=== PATIENT | female | born 1960 | race Caucasian/White ===

== ENCOUNTER 2020-08-02 11:42 | Outpatient (REF) | payer OTHER, SELFPAY ==
[2020-08-02 13:53] LABS: Hematocrit 39.2 % (37-47); Hemoglobin 13.5 g/dl (12.0-16.0); Mean Corpuscular HGB Conc 34.4 g/dl (31.0-35.0); Mean Corpuscular Hemoglobin 35.3 pg (27.0-33.0); Mean Corpuscular Volume 102.6 fL (80-98); Mean Platelet Volume 11.3 fL (9.4-12.3); Platelet Count 297 X10*3/uL (160-400); Red Blood Count 3.82 X10*6/uL (4.20-5.50); Red Cell Distribution Width 12.4 % (11.0-16.0); White Blood Count 9.2 X10*3/uL (4.8-10.8)
[2020-08-02 14:18] LABS: Alanine Aminotransferase 16 U/L (0-31); Albumin Level 4.3 g/dL (3.5-5.0); Alkaline Phosphatase 96 U/L (39-117); Anion Gap 14 (12-20); Aspartate Amino Transferase 20 U/L (5-31); Bilirubin Direct 0.2 mg/dL (0.0-0.5); Bilirubin Total 0.6 mg/dL (0.0-1.0); Blood Urea Nitrogen 13 mg/dL (9-16); Calcium 8.6 mg/dL (8.4-10.2); Carbon Dioxide 31 mmol/L (22-29); Chloride 102 mmol/L (96-108); Cholesterol 202 mg/dL; Estimated Glomerular Filt Rate > 60; Glucose Fasting 102 mg/dL (60-99); HDL Cholesterol 79 mg/dL; LDL Cholesterol Calculated 103 mg/dl; Potassium 4.1 mmol/L (3.3-5.1); Sodium 143 mmol/L (135-145); Triglycerides 102 mg/dL
[2020-08-02 14:27] LABS: TSH reflex Free T4 0.53 uIU/mL (0.32-4.0)
== END 2020-08-02 11:43 | disposition home or self-care (01) ==
LOC: HO.WFDLDS 11:42
PROVIDERS: PCP Hospitalist; Visit Provider Hospitalist
DX: Z00.00 Encounter for general adult medical examination without abnormal findings (principal)
CPT/HCPCS: 36415; 80048; 80061; 80076; 84443; 85027

== ENCOUNTER 2020-12-01 12:06 | Outpatient (REF) | payer OTHER, SELFPAY ==
[2020-12-01 15:16] LABS: Vitamin B12 854 pg/mL (200-900)
== END 2020-12-01 12:07 | disposition home or self-care (01) ==
LOC: HO.WFDLDS 12:06
PROVIDERS: Visit Provider Internal Medicine
DX: G62.9 Polyneuropathy, unspecified (principal)
CPT/HCPCS: 36415; 82607; 82746

== ENCOUNTER 2021-04-18 08:33 | Outpatient (REF) | payer OTHER, SELFPAY ==
[2021-04-18 11:45] LABS: Hematocrit 36.5 % (37.0-47.0); Hemoglobin 13.1 g/dl (12.0-16.0); Mean Corpuscular HGB Conc 35.9 g/dl (31.0-35.0); Mean Corpuscular Hemoglobin 37.6 pg (27.0-33.0); Mean Corpuscular Volume 104.9 fL (80.0-98.0); Mean Platelet Volume 11.3 fL (9.4-12.3); Platelet Count 299 X10*3/uL (160-400); Red Blood Count 3.48 X10*6/uL (4.20-5.50); Red Cell Distribution Width 13.7 % (11.0-16.0); White Blood Count 8.4 X10*3/uL (4.8-10.8)
[2021-04-18 11:56] LABS: Alanine Aminotransferase 11 U/L (0-31); Albumin Level 3.7 g/dL (3.5-5.0); Alkaline Phosphatase 96 U/L (39-117); Anion Gap 18 (12-20); Aspartate Amino Transferase 40 U/L (5-31); Blood Urea Nitrogen 4 mg/dL (9-16); Calcium 8.2 mg/dL (8.4-10.2); Carbon Dioxide 35 mmol/L (22-29); Chloride 95 mmol/L (96-108); Cholesterol 172 mg/dL; Estimated Glomerular Filt Rate > 60; Glucose Fasting 110 mg/dL (60-99); HDL Cholesterol 78 mg/dL; LDL Cholesterol Calculated 75 mg/dl; Potassium 2.7 mmol/L (3.3-5.1); Sodium 145 mmol/L (135-145); Total Protein 6.7 g/dL (6.5-8.0); Triglycerides 97 mg/dL
[2021-04-18 12:18] LABS: TSH reflex Free T4 1.74 uIU/mL (0.32-4.0)
== END 2021-04-18 08:34 | disposition home or self-care (01) ==
LOC: HO.WFDLDS 08:33
PROVIDERS: Visit Provider Hospitalist
DX: Z00.01 Encounter for general adult medical examination with abnormal findings (principal)
CPT/HCPCS: 36415; 80048; 80053; 80061; 84443; 85027

== ENCOUNTER 2021-05-02 09:36 | Outpatient (REF) | payer OTHER, SELFPAY ==
[2021-05-02 12:37] LABS: Alanine Aminotransferase 14 U/L (0-31); Albumin Level 3.7 g/dL (3.5-5.0); Alkaline Phosphatase 105 U/L (39-117); Anion Gap 17 (12-20); Aspartate Amino Transferase 44 U/L (5-31); Bilirubin Total 1.3 mg/dL (0.0-1.0); Blood Urea Nitrogen 5 mg/dL (9-16); Calcium 8.6 mg/dL (8.4-10.2); Carbon Dioxide 35 mmol/L (22-29); Chloride 96 mmol/L (96-108); Estimated Glomerular Filt Rate > 60; Glucose Random 110 mg/dL (60-115); Sodium 145 mmol/L (135-145); Total Protein 6.8 g/dL (6.5-8.0)
== END 2021-05-02 09:37 | disposition home or self-care (01) ==
LOC: HO.WFDLDS 09:36
PROVIDERS: Visit Provider Hospitalist
DX: E87.6 Hypokalemia (principal); R17 Unspecified jaundice
CPT/HCPCS: 36415; 80053

== ENCOUNTER 2021-07-25 10:03 | Outpatient (REF) | payer OTHER, SELFPAY ==
[2021-07-25 11:53] LABS: Alanine Aminotransferase 34 U/L (0-31); Albumin Level 3.6 g/dL (3.5-5.0); Alkaline Phosphatase 108 U/L (39-117); Anion Gap 15 (12-20); Aspartate Amino Transferase 98 U/L (5-31); Bilirubin Total 1.8 mg/dL (0.0-1.0); Blood Urea Nitrogen 5 mg/dL (9-16); Calcium 8.6 mg/dL (8.4-10.2); Carbon Dioxide 37 mmol/L (22-29); Chloride 93 mmol/L (96-108); Estimated Glomerular Filt Rate > 60; Glucose Random 121 mg/dL (60-115); Potassium 3.5 mmol/L (3.3-5.1); Sodium 141 mmol/L (135-145); Total Protein 6.7 g/dL (6.5-8.0)
== END 2021-07-25 10:04 | disposition home or self-care (01) ==
LOC: HO.WFDLDS 10:03
PROVIDERS: Visit Provider Hospitalist
DX: E87.6 Hypokalemia (principal); R17 Unspecified jaundice; R82.90 Unspecified abnormal findings in urine
CPT/HCPCS: 36415; 80053; 87086; 87088; 87186

== ENCOUNTER 2021-11-10 08:33 | Outpatient (REF) | payer OTHER, SELFPAY | END 2021-11-10 08:34 | disposition home or self-care (01) | LOC: HO.HOSX 08:33 | PROVIDERS: Visit Provider Physician Assistant | DX: Z13.89 Encounter for screening for other disorder (principal) ==

== ENCOUNTER 2022-07-19 10:43 | Outpatient (REF) | payer OTHER, SELFPAY ==
[2022-07-19 14:25] LABS: Hematocrit 40.9 % (37.0-47.0); Hemoglobin 14.1 g/dl (12.0-16.0); Mean Corpuscular HGB Conc 34.5 g/dl (31.0-35.0); Mean Corpuscular Hemoglobin 33.9 pg (27.0-33.0); Mean Corpuscular Volume 98.3 fL (80.0-98.0); Mean Platelet Volume 11.7 fL (9.4-12.3); Platelet Count 213 X10*3/uL (160-400); Red Blood Count 4.16 X10*6/uL (4.20-5.50); Red Cell Distribution Width 13.1 % (11.0-16.0); White Blood Count 7.2 X10*3/uL (4.8-10.8)
[2022-07-19 16:20] LABS: Alanine Aminotransferase 11 U/L (0-31); Albumin Level 3.8 g/dL (3.5-5.0); Alkaline Phosphatase 107 U/L (39-117); Anion Gap 14 (12-20); Aspartate Amino Transferase 29 U/L (5-31); Bilirubin Total 1.2 mg/dL (0.0-1.0); Blood Urea Nitrogen 5 mg/dL (9-16); Calcium 9.1 mg/dL (8.4-10.2); Carbon Dioxide 31 mmol/L (22-29); Chloride 99 mmol/L (96-108); Cholesterol 164 mg/dL; Estimated Glomerular Filt Rate > 60; Glucose Fasting 130 mg/dL (60-99); HDL Cholesterol 80 mg/dL; LDL Cholesterol Calculated 64 mg/dl; Magnesium 0.7 mg/dL (1.6-2.6); Sodium 141 mmol/L (135-145); TSH reflex Free T4 0.57 uIU/mL (0.32-4.0); Total Protein 6.7 g/dL (6.5-8.0); Triglycerides 104 mg/dL
== END 2022-07-19 10:44 | disposition home or self-care (01) ==
LOC: HO.WFDLDS 10:43
PROVIDERS: Hospitalist; Visit Provider Nurse Practitioner Family
DX: E83.42 Hypomagnesemia (principal); D64.9 Anemia, unspecified; E87.6 Hypokalemia; I10 Essential (primary) hypertension
CPT/HCPCS: 36415; 80053; 80061; 82306; 83735; 84443; 85027

== ENCOUNTER 2022-08-23 10:16 | Outpatient (REF) | payer OTHER, SELFPAY | END 2022-08-23 10:17 | disposition home or self-care (01) | LOC: HO.WFDLDS 10:16 | PROVIDERS: Visit Provider Hospitalist | DX: Z13.89 Encounter for screening for other disorder (principal) ==

== ENCOUNTER 2022-10-11 11:09 | Outpatient (REF) | payer OTHER, SELFPAY ==
[2022-10-11 14:02] LABS: Hematocrit 33.2 % (37.0-47.0); Hemoglobin 11.7 g/dl (12.0-16.0); Mean Corpuscular HGB Conc 35.2 g/dl (31.0-35.0); Mean Corpuscular Hemoglobin 37.9 pg (27.0-33.0); Mean Corpuscular Volume 107.4 fL (80.0-98.0); Mean Platelet Volume 11.2 fL (9.4-12.3); Platelet Count 151 X10*3/uL (160-400); Red Blood Count 3.09 X10*6/uL (4.20-5.50); Red Cell Distribution Width 14.5 % (11.0-16.0); White Blood Count 6.9 X10*3/uL (4.8-10.8)
[2022-10-11 14:32] LABS: Anion Gap 18 (12-20); Blood Urea Nitrogen 7 mg/dL (9-16); Calcium 8.3 mg/dL (8.4-10.2); Carbon Dioxide 31 mmol/L (22-29); Chloride 97 mmol/L (96-108); Cholesterol 175 mg/dL; Estimated Glomerular Filt Rate > 60; Glucose Random 107 mg/dL (60-115); HDL Cholesterol 82 mg/dL; LDL Cholesterol Calculated 74 mg/dl; Magnesium < 0.6 mg/dL (1.6-2.6); Phosphorus 3.9 mg/dL (2.7-4.5); Potassium 3.4 mmol/L (3.3-5.1); Sodium 143 mmol/L (135-145); Triglycerides 97 mg/dL
[2022-10-11 14:57] LABS: Folate 2.6 ng/mL (> or = 4.0); TSH reflex Free T4 1.05 uIU/mL (0.32-4.0)
[2022-10-17 16:33] LABS: Vitamin D 25-OH, D2 14 ng/mL; Vitamin D 25-OH, D3 43 ng/mL; Vitamin D 25-OH, Total 57 ng/mL (30-100)
== END 2022-10-11 11:10 | disposition home or self-care (01) ==
LOC: HO.WFDLDS 11:09
PROVIDERS: Visit Provider Hospitalist
DX: Z00.00 Encounter for general adult medical examination without abnormal findings (principal); K21.9 Gastro-esophageal reflux disease without esophagitis; F10.20 Alcohol dependence, uncomplicated; E55.9 Vitamin D deficiency, unspecified
CPT/HCPCS: 36415; 80048; 80061; 82306; 82746; 83735; 84100; 84443; 85027

== ENCOUNTER 2023-03-08 13:13 | Outpatient (AMB) | payer OTHER, SELFPAY ==
[2023-03-08 13:17] VITALS: BP 96/66; PULSE 116; RESP 12; O2SAT 97; BMI 16.1
--- NOTE | 2023-03-08 13:17 | MHC.PC.OV ---
Vital Signs 03/08/23 13:17 Height 5 ft 2 in Weight 88 lb 4 oz BMI 16.1 BP 96/66 Blood Pressure Location Rt brachial Position Sitting Respiration 12 Pulse 116 H Pulse Source Pulse Oximeter Pulse Oximetry (%) 97 Oxygen Delivery Method Room Air Intake Visit Reasons: Transfer of care from [facility] Intake Note: Patient would like a refill on her loratadine. Patient is also wondering if she should or should not be taking the potassium. 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 Accompanied by: Boyfriend Allergies Sulfa (Sulfonamide Antibiotics) Allergy (Intermediate, Verified 03/08/23 13:47) Redness of Skin rash Medication List - Last Reconciled 03/08/23 by BAL Walton albuterol sulfate 90 mcg/actuation (Ventolin HFA) 2 puffs PO QID cholecalciferol (vitamin D3) 50 mcg PO DAILY diclofenac sodium 1% (Voltaren Arthritis Pain) 2 grams topical QID duloxetine 20 mg PO BID folic acid 0.4 mg PO DAILY 30 days loratadine (Allergy Relief (loratadine)) 10 mg PO DAILY magnesium oxide 500 mg PO BID omeprazole 20 mg PO DAILY potassium chloride ER (Klor-Con) 10 mEq PO DAILY 30 days umeclidinium-vilanterol 62.5-25 mcg/actuation (Anoro Ellipta) 1 inh inhalation DAILY valsartan 40 mg PO BID 3 months Tobacco use date assessed: 08/23/22 Dental Screening Dental Screen Date: 03/08/23 Did you have a dental visit in the last 12 months?: No Did you have a dental problem in the last 6 months where you did not have access to dental care?: No Was dental information given to patient?: Patient has dentist HPI HPI Comments History of Present Illness Details 63-year-old female presents today to for a transfer of care from [facility]. Past medical history significant for hypertension, peripheral neuropathy, alcohol dependence, hypo magnesium hypokalemia, asthma, COPD, GERD. Patient reports she currently drinks 3 nips of vodka daily and currently smokes 5 cigarettes per day. Patient denies following with labor and delivery nurse for history of COPD and asthma. Patient does report that she suffered a left hip fracture in December and she was admitted to [facility]. Patient advised to follow up in 2 weeks for hospital discharge follow-up. [facility] Medical History (Updated 03/08/23 @ 14:01 by BAL Walton) Right arm fracture Peripheral neuropathy Multiple nodules of lung Weakness of left side of body Chronic back pain Arthritis COPD (chronic obstructive pulmonary disease) Depression Anxiety Surgical History Previous back surgery H/O: hysterectomy Family History (Updated 03/08/23 @ 13:44 by BAL Walton) Mother No problems noted. Father Lung cancer Social History (Updated 03/08/23 @ 13:45 by BAL Walton) Housing: Other (trailer) Alcohol intake: current Alcohol intake frequency: 3 or more drinks per day Alcohol type: hard liquor Patient Tobacco Use Status: Current everyday Tobacco user Tobacco use type: Cigarette Cigarettes Per Day: 5 Years Smoked: 40 e-Cigarette/Vaping Use: Never Used service: No Current occupational status: unemployed Cognitive needs: No Hearing needs: No Vision needs: No Questionnaire Thrive Questionnaire Date Thrive assessed: 05/24/22 Review of Systems Const Denies chills, Denies fatigue, Denies fever(s) and Denies poor appetite Eyes Denies no additional complaints ENT Reports Normal hearing present Card Denies chest pain, Denies syncope, Denies rapid heart rate and Denies dyspnea Resp Denies cough and Denies dyspnea GI Denies change in stool character, Denies constipation, Denies diarrhea, Denies nausea and Denies vomiting Denies urinary frequency, Denies dysuria and Denies urinary urgency Neuro Reports Normal hearing present, Denies confusion and Denies syncope Psych Denies confusion Endo Denies fatigue Physical exam (Primary Care) Vital Signs: Last Vital Signs Pulse 116 H 03/08/23 13:17 Resp 12 03/08/23 13:17 BP 96/66 03/08/23 13:17 Pulse Ox 97 03/08/23 13:17 Oxygen Delivery Method Room Air 03/08/23 13:17 BMI result Body Mass Index 16.1 Tobacco/Smoking Status: Tobacco use Status Tobacco use date assessed 08/23/22 03/08/23 13:32 Patient Tobacco Use Status Current everyday Tobacco 03/08/23 13:45 Tobacco use type Cigarette 03/08/23 13:45 e-Cigarette/Vaping Use Never Used 03/08/23 13:45 Thrive Assessment: Date of Thrive Assessment Date Thrive assessed 05/24/22 03/08/23 13:32 Const General: No confusion Orientation/consciousness: No confusion HENMT Head: Yes normocephalic and Yes atraumatic Eyes Conjunctivae: conjunctivae normal Chest Chest palpation & inspection: normal inspection of the chest Resp Effort & Inspection: normal respiratory effort Auscultation: clear to auscultation bilaterally, no crackles, no rhonchi and no wheezes Cardio Rate: regular rate Rhythm: regular rhythm Heart sounds: S1 normal heart sound present and S2 normal heart sound present GI Inspection: Yes normal to inspection Neuro General: No confusion Cranial nerves: Yes Normal hearing present Extrem General: No edema Assessment and Plan Assessment & Plan (1) Hypomagnesemia: Code(s): E83.42 - Hypomagnesemia Plan: Magnesium level ordered. Continue on magnesium supplements. (2) Hypokalemia: Code(s): E87.6 - Hypokalemia Plan: Potassium level ordered. (3) Hypertension, essential: Code(s): I10 - Essential (primary) hypertension Plan: Continue on valsartan 40 mg twice a day (4) COPD (chronic obstructive pulmonary disease): Code(s): J44.9 - Chronic obstructive pulmonary disease, unspecified Plan: Continue on Anoro Ellipta and albuterol as needed. Plan Follow up in 2 weeks for hospital discharge follow-up/ Orders: Orders Complete Blood Count Auto Diff Today Z13.0 - Encounter for screening for diseases of the blood and blood-forming organs and certain disorders involving the immune mechanism Magnesium Today E83.42 - Hypomagnesemia TSH reflex Free T4 Today Z13.29 - Encounter for screening for other suspected endocrine disorder Comprehensive [place]. Panel Fast Today E83.42 - Hypomagnesemia Lipid Panel Today Z13.220 - Encounter for screening for lipoid disorders Vitamin D 25-OH Total Today Z13.21 - Encounter for screening for nutritional disorder Coding Level of Care Code Est Pt Level 4 (96932) Diagnoses Hypomagnesemia E83.42 Hypokalemia E87.6 Hypertension, essential I10 COPD (chronic obstructive pulmonary disease) J44.9
== END 2023-03-08 13:55 | disposition home or self-care (01) ==
PROVIDERS: PCP Hospitalist; Visit Provider Nurse Practitioner Family
DX: E83.42 Hypomagnesemia (principal); E87.6 Hypokalemia; I10 Essential (primary) hypertension; J44.9 Chronic obstructive pulmonary disease, unspecified
CPT/HCPCS: 99214

== ENCOUNTER 2023-03-27 11:58 | Outpatient (REF) | payer OTHER, SELFPAY | END 2023-03-27 11:59 | disposition home or self-care (01) | LOC: HO.WFDLDS 11:58 | PROVIDERS: Visit Provider Nurse Practitioner Family | DX: Z13.0 Encounter for screening for diseases of the blood and blood-forming organs and certain disorders involving the immune mechanism (principal); Z13.29 Encounter for screening for other suspected endocrine disorder; Z13.220 Encounter for screening for lipoid disorders; Z13.21 Encounter for screening for nutritional disorder; E83.42 Hypomagnesemia | CPT/HCPCS: 36415; 80053; 80061; 82306; 83735; 84443; 85025 ==

== ENCOUNTER 2023-03-30 09:59 | Outpatient (AMB) | payer OTHER, SELFPAY ==
--- NOTE | 2023-03-30 10:02 | MHC.PC.OV ---
Vital Signs 03/30/23 10:04 Height 5 ft 2 in Weight 88 lb 6.486 oz BMI 16.2 BP 100/68 Blood Pressure Location Rt brachial Position Sitting Intake Visit Reasons: HDF from [facility] Intake Note: Patient is here to follow up on Chronic GERD, COPD, Asthma, Arthritis. 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: Present Accompanied by: Spouse Allergies Sulfa (Sulfonamide Antibiotics) Allergy (Intermediate, Verified 03/30/23 10:04) Redness of Skin rash Tobacco use date assessed: 03/30/23 Dental Screening Dental Screen Date: 03/30/23 Did you have a dental visit in the last 12 months?: No Did you have a dental problem in the last 6 months where you did not have access to dental care?: No Was dental information given to patient?: No HPI HPI Comments History of Present Illness Details 63-year-old female past medical history significant for hypertension, alcohol dependence, smoker, anxiety, depression, hypo magnesium, anemia, GERD. Patient presents today for hospital discharge follow-up from [facility] in January status post fall for which patient suffered a left hip intro trochantericfracture, status post left hip repair. Patient was found to have Hypomagnesium likely related to GI losses patient was advised to continue p.o. magnesium as well as found to be anemia with hemoglobin in the sevens patient refused blood transfusion during admission recommended repeat CBC in 1 week. Patient was advised to follow-up with [facility] ortho 04/10 Repeat labs were completed on 03/27 23 H&H 13.5/38.5, sodium slightly low at 134, BUN and creatinine within normal limits. Magnesium remains critical at 0.9. Patient was called and notified to seek emergency medical attention for IV replacement at that time. To the emergency room for critical magnesium as she did not have a ride. Patient also states that she was only taking her magnesium supplement once daily she was not aware she was supposed to be on a twice a day. Patient states started taking her magnesium supplements twice a day 3 days ago. Patient advised to get repeat lab work completed to follow-up on this. Patient reports ongoing chronic diarrhea x3 years denies any abdominal pain or cramping denies any blood in stool. Patient reports occasionally nausea denies vomiting. Previous history of alcohol so abuse patient reports has not consumed alcohol x1 month. Patient strongly advised to continue to refrain from alcohol consumption. [facility] Medical History (Updated 03/08/23 @ 14:01 by BAL Walton) Right arm fracture Peripheral neuropathy Multiple nodules of lung Weakness of left side of body Chronic back pain Arthritis COPD (chronic obstructive pulmonary disease) Depression Anxiety Surgical History (Updated 03/30/23 @ 10:13 by SANDOVAL Fish) History of hip surgery Previous back surgery H/O: hysterectomy Family History (Updated 03/30/23 @ 10:03 by SANDOVAL Fish) Mother No problems noted. Father Lung cancer Social History Housing: Other (trailer) Alcohol intake: current Alcohol intake frequency: 3 or more drinks per day Alcohol type: hard liquor Patient Tobacco Use Status: Current everyday Tobacco user Tobacco use type: Cigarette Cigarettes Per Day: 5 Years Smoked: 40 e-Cigarette/Vaping Use: Never Used Second Hand Smoke Exposure: Yes service: No Current occupational status: unemployed Cognitive needs: Yes (walker, wheelchair) Hearing needs: No Vision needs: Yes (glasses) Questionnaire Thrive Questionnaire Date Thrive assessed: 03/30/23 I am a: Patient What is your living situation today?: I have a steady place to live Within the past 12 months, did the food you bought not last and you didn't have the money to get more?: Never true Within the past 12 months, did you worry whether your food would run out before you got money to buy more?: Never true Do you have trouble paying for medicines?: No Do you have trouble getting transportation to medical appointments?: No Do you have trouble paying your heating and electricity bill?: No Do you have trouble taking care of your child, family member or friend?: No Do you have trouble with day-to-day activities such as bathing, preparing meals, shopping, managing finances, etc.?: No Are you currently unemployed and looking for a job?: No Are you interested in more education?: No Currently or been in a relationship where the following occur: no concerns reported TAWNYA-7 AMB Questionnaire TAWNYA-7 Date TAWNYA - 7 assessed: 10/11/22 Source: Developed by Drs. Riley Banuelos, Cleemntine Leblanc, Jose J Benítez and colleagues, with an educational xiang from [employer]. Review of Systems Const Denies chills, Denies fatigue, Denies fever(s) and Denies poor appetite Eyes Denies no additional complaints ENT Reports Normal hearing present Card Denies chest pain, Denies syncope, Denies rapid heart rate and Denies dyspnea Resp Denies cough and Denies dyspnea GI Denies change in stool character, Denies constipation, Denies diarrhea, Denies nausea and Denies vomiting Denies urinary frequency, Denies dysuria and Denies urinary urgency Neuro Reports Normal hearing present, Denies confusion and Denies syncope Psych Denies confusion Endo Denies fatigue Physical exam (Primary Care) Vital Signs: Last Vital Signs BP 100/68 03/30/23 10:04 BMI result Body Mass Index 16.2 Tobacco/Smoking Status: Tobacco use Status Tobacco use date assessed 03/30/23 03/30/23 10:14 Patient Tobacco Use Status Current everyday Tobacco 03/30/23 10:14 Tobacco use type Cigarette 03/30/23 10:14 e-Cigarette/Vaping Use Never Used 03/30/23 10:14 Thrive Assessment: Date of Thrive Assessment Date Thrive assessed 03/30/23 03/30/23 10:14 Currently or been in a relationship where the following occur: no concerns reported Const General: No confusion Orientation/consciousness: No confusion HENTX Head: Yes normocephalic and Yes atraumatic Eyes Conjunctivae: conjunctivae normal Chest Chest palpation & inspection: normal inspection of the chest Resp Effort & Inspection: normal respiratory effort Auscultation: clear to auscultation bilaterally, no crackles, no rhonchi and no wheezes Cardio Rate: regular rate Rhythm: regular rhythm Heart sounds: S1 normal heart sound present and S2 normal heart sound present GI Inspection: Yes normal to inspection Neuro General: No confusion Cranial nerves: Yes Normal hearing present Extrem General: No edema Office Procedures Flu Questionnaire Does the patient have a severe egg allergy?: No Does the patient have severe life threatening allergies?: No Does the patient have a fever or illness today?: No Has the patient ever had Guillain-[place] Syndrome?: No Has the patient ever had any past reaction to a flu shot?: No Immunizations flu vacc [id number] 6mos up(PF) 60 mcg(15 mcgx4)/0.5 mL IM syringe Performing Provider: BAL Walton Performing Location[facility] Administered by: SANDOVAL Story on 03/30/23 10:35 Dose Route Admin Location Dispensed Lot Number Expiration Date [employer] 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 (2) Hypomagnesemia: Code(s): E83.42 - Hypomagnesemia Plan: Patient advised to get repeat magnesium level drawn today and continue on magnesium supplements b.i.d. (3) Hypertension, essential: Code(s): I10 - Essential (primary) hypertension Plan: Continue on valsartan 40 mg b.i.d. (4) COPD (chronic obstructive pulmonary disease): Code(s): J44.9 - Chronic obstructive pulmonary disease, unspecified Plan: Continue on albuterol as needed (5) Hospital discharge follow-up: Code(s): Z09 - Encounter for follow-up examination after completed treatment for conditions other than malignant neoplasm Plan: Continue to follow with [facility] orthopedic s/p hip repair surgery. Orders: Orders Comprehensive Met. Panel Today E87.1 - Hypo-osmolality and hyponatremia Influenza [id number] Immunization Today Z23 - Encounter for immunization Referrals Gastroenterology Referral R19.7 - Diarrhea, unspecified Medications: Refilled loratadine (Allergy Relief (loratadine)) 10 mg PO DAILY 90 tabs 1RF Coding Level of Care Code Est Pt Level 4 (68064) Diagnoses Diarrhea R19.7 Hypomagnesemia E83.42 Hypertension, essential I10 COPD (chronic obstructive pulmonary disease) J44.9 Hospital discharge follow-up Z09
[2023-03-30 10:04] VITALS: BP 100/68; BMI 16.2
== END 2023-03-30 10:40 | disposition home or self-care (01) ==
PROVIDERS: PCP Hospitalist; Visit Provider Nurse Practitioner Family
DX: R19.7 Diarrhea, unspecified (principal); E83.42 Hypomagnesemia; I10 Essential (primary) hypertension; J44.9 Chronic obstructive pulmonary disease, unspecified; Z09 Encounter for follow-up examination after completed treatment for conditions other than malignant neoplasm; Z23 Encounter for immunization; F17.210 Nicotine dependence, cigarettes, uncomplicated; F41.8 Other specified anxiety disorders
CPT/HCPCS: 90471; 90686; 99214

== ENCOUNTER 2023-04-16 13:37 | Outpatient (REF) | payer OTHER, SELFPAY | END 2023-04-16 13:38 | disposition home or self-care (01) | LOC: HO.LAB 13:37 | PROVIDERS: PCP Nurse Practitioner Family; Visit Provider Nurse Practitioner Family | DX: K52.9 Noninfective gastroenteritis and colitis, unspecified (principal); R63.4 Abnormal weight loss; E46 Unspecified protein-calorie malnutrition; R17 Unspecified jaundice; F17.210 Nicotine dependence, cigarettes, uncomplicated | CPT/HCPCS: 99202 ==

== ENCOUNTER 2023-04-16 14:01 | Outpatient (AMB) | payer OTHER, SELFPAY ==
--- NOTE | 2023-04-16 14:04 | MHC.OFFVIS ---
Intake Vital Signs 04/16/23 14:07 Height 5 ft 2 in Weight 81 lb 9.137 oz BMI 14.9 BP 105/68 Blood Pressure Location Lt brachial Position Sitting Pulse 106 H Intake Visit Reasons: Chronic diarrhea x3 years Intake Note: Sophie presents in the office as a new patient for chronic diarrhea. CC: She states that she has diarrhea all the time. She states that she has incontinence all the time. Regulatory Internship Required: No Allergies Sulfa (Sulfonamide Antibiotics) Allergy (Intermediate, Verified 04/16/23 14:07) Redness of Skin rash HPI HPI Comments History of Present Illness Details 63 y.o F with PMH of COPD, tobacco use disorder, HTN, who was recently admitted to [facility] for fall which was attributed to dehydration secondary to severe diarrhea. She is here to establish care for chronic diarrhea. Pt reports having intermittent diarrhea x 4 years which has gotten worse over the past 2 months with now having diarrhea everyday at least 2-3 watery BMs associated with weight loss of 10 lbs in a month. Overall reports losing >30lbs in a year, current BMI is <15. Attributes this mostly to lack of appetite - no abd pain, vomiting. No blood in stool, no night time sx. No fam hx of CRC. Reports last colo was almost 4 years ago done at [facility], was done for CRC screening per her report was not havign diarrhea at that time, diarrhea started shortly after the colonoscopy. Continues to smoke, almost 7-8cigs per day. New meds include mag supplements but states was having diarrhea before this and Mag supplements were started after due to hypomagnesesmia. [facility] Medical History Right arm fracture Peripheral neuropathy Multiple nodules of lung Weakness of left side of body Chronic back pain Arthritis COPD (chronic obstructive pulmonary disease) Depression Anxiety Surgical History Hx of colonoscopy History of hip surgery Previous back surgery H/O: hysterectomy Family History Mother No problems noted. Father Lung cancer Social History Housing: Other (trailer) Alcohol intake: current Alcohol intake frequency: 3 or more drinks per day Alcohol type: hard liquor Patient Tobacco Use Status: Current everyday Tobacco user Tobacco use type: Cigarette Cigarettes Per Day: 5 Years Smoked: 40 e-Cigarette/Vaping Use: Never Used Second Hand Smoke Exposure: Yes service: No Current occupational status: unemployed Cognitive needs: Yes (walker, wheelchair) Hearing needs: No Vision needs: Yes (glasses) Physical Exam Vital Signs: Last Vital Signs Pulse 106 H 04/16/23 14:07 BP 105/68 04/16/23 14:07 BMI result Body Mass Index 14.9 Gen appear: Pale appearing, undernourished HEENT: ? icteric, no cervical lymphadenopathy Chest: CTA CVS: Regular S1/S2 Abd: soft, nontender, nondistended, bowel sounds + Ext: no peripheral edema Neuro: A/Ox3, in wheelchair due to recent hip fx surgery Psych: interacting appropriately Assessment & Plan Assessment & Plan (1) Unintentional weight loss: Code(s): R63.4 - Abnormal weight loss (2) Diarrhea: Code(s): R19.7 - Diarrhea, unspecified (3) Protein calorie malnutrition: Code(s): E46 - Unspecified protein-calorie malnutrition Plan Reviewed with the pt that diarrhea and unintentional weight loss definitely worrisome for underlying malignant process. Other ddx include IBD, microscopic colitis, pancreatic insufficiency etc. Paraneoplastic process also on the differential. Plan: - Will book for urgent bidirectional endoscopy with bx for luminal evaluation - Split PEG prep instructions reviewed with the pt and her boyfriend Frank. - Labs ordered as below. Also checking CBC and liver profile again given pale/jaundiced appearance on exam today - Contrasted CT chest, abd, pelvis ordered as below - If above negative, will need testing for secretory diarrhea such as gastrin (will need to dc ppi), somatostatin, VIPoma, 5-HIAA - Protein shakes BID for severe malnutrition. - Follow up in 4 weeks to review results. Pt made aware that will be with a different provider Orders: Orders Ferritin Today R19.7 - Diarrhea, unspecified Immunoglobulin A Today R19.7 - Diarrhea, unspecified HIV Ab/Ag Today R19.7 - Diarrhea, unspecified Liver Panel Today R17 - Unspecified jaundice Complete Blood Count no Diff Today R19.7 - Diarrhea, unspecified CT chest w IV con Today J44.9 - Chronic obstructive pulmonary disease, unspecified, R63.4 - Abnormal weight loss Pancreatic Elastase-1 Today R19.7 - Diarrhea, unspecified, R63.4 - Abnormal weight loss Calprotectin, Fecal Today R19.7 - Diarrhea, unspecified IRON PROFILE Today R19.7 - Diarrhea, unspecified Vitamin B12 and Folate Today R19.7 - Diarrhea, unspecified TSH reflex Free T4 Today R19.7 - Diarrhea, unspecified Transglutaminase IgA Today R19.7 - Diarrhea, unspecified Hepatitis A IgG Today R17 - Unspecified jaundice Hepatitis B Core Antibody Today R17 - Unspecified jaundice Hepatitis B Surface Antibody Today R17 - Unspecified jaundice Hepatitis B Surface Antigen Today R17 - Unspecified jaundice Hepatitis C Antibody Today R17 - Unspecified jaundice CT abdomen pelvis w IV con Today R19.7 - Diarrhea, unspecified, R63.4 - Abnormal weight loss Medications: New food supplemt, lactose-reduced (Boost Plus) 1 ea PO BID 30 days 14,220 mL 0RF peg 3350-electrolytes 236-22.74-6.74 -5.86 gram (Golytely) as per split prep instructions, until fecal effluent is clear 240 mL PO Q10M 4,000 mL 0RF colonoscopy Coding Level of Care Code New Pt Level 5 (80897) Diagnoses Unintentional weight loss R63.4 Diarrhea R19.7 Protein calorie malnutrition E46
[2023-04-16 14:07] VITALS: BP 105/68; PULSE 106; BMI 14.9
== END 2023-04-16 14:36 | disposition home or self-care (01) ==
PROVIDERS: PCP Hospitalist; Visit Provider Internal Medicine
DX: K52.9 Noninfective gastroenteritis and colitis, unspecified (principal); R63.4 Abnormal weight loss; E46 Unspecified protein-calorie malnutrition
CPT/HCPCS: 99204

== ENCOUNTER 2023-04-24 12:15 | Inpatient (IN) | payer OTHER, SELFPAY ==
[2023-04-24] VITALS (7 sets, daily range): BP systolic 120–160; BP diastolic 73–96; PULSE 80–91; RESP 12–18; TEMP 35.7–36.8; O2SAT 94–100; BMI 15.5
--- NOTE | ~2023-04-24 | CT_ITS ---
EXAMINATION: CT ABDOMEN AND PELVIS WITH CONTRAST CLINICAL INFORMATION: Abdominal pain. COMPARISON: None available. TECHNIQUE: Multidetector volumetric images were obtained from the superior aspect of the liver through the pubic symphysis following administration 85 mL of Omnipaque 350 intravenous contrast. Sagittal and coronal reformatted images were obtained on the technologist's workstation. Oral contrast: No This CT examination was performed using dose optimization techniques as appropriate, variously including the following: *Automated exposure control *Adjustment of mA and/or kV according to patient size (this includes techniques or standardized protocols for targeted exams where dose is matched to indication/reason for exam; i.e. extremities or head) *Use of iterative reconstruction technique DLP: 269 mGy-cm FINDINGS: LUNG BASES: The visualized lung bases are unremarkable. LIVER, GALLBLADDER, AND BILIARY TREE: The liver is normal in size, shape, and attenuation. No focal hepatic lesion or biliary ductal dilatation is present. The gallbladder is unremarkable, with no evidence of radiopaque gallstones, gallbladder wall thickening or obvious pericholecystic inflammatory change. PANCREAS: Unremarkable. SPLEEN: Unremarkable. ADRENAL GLANDS: Unremarkable. KIDNEYS AND URETERS: The kidneys are normal in size, shape, and attenuation. No hydronephrosis, hydroureter or calculi seen. There are benign, simple appearing bilateral renal cysts, which require no imaging follow-up. No perinephric stranding. BLADDER: Unremarkable. GASTROINTESTINAL TRACT: There is marked concentric wall thickening of the gastric antrum (3:23 and 8:63). The small and large bowel are unremarkable. No obstruction, free intraperitoneal air or abscess is seen. There are foci of focal colonic contraction, without underlying intrinsic wall thickening. No diverticulosis or diverticulitis is seen. The vermiform appendix is unremarkable. There is mild stranding of ventral mesenteric fat. ABDOMINAL WALL: No significant hernia is appreciated. There is mild generalized anasarca. LYMPH NODES: Normal. VASCULAR: There is moderately severe aortoiliac atherosclerotic calcification. No abdominal aortic aneurysm is seen. PELVIC VISCERA: Unremarkable. OSSEOUS STRUCTURES: There is multi-level thoracolumbar degenerative disc disease, spondylosis and facet arthropathy. Orthopedic hardware is applied to the proximal left femur. No acute or aggressive osseous abnormality is seen. CT/CT abdomen pelvis w IV con IMPRESSION: 1. There is marked concentric wall thickening of the gastric antrum. This could be infectious, inflammatory or neoplastic in etiology. No discrete ulceration or free intraperitoneal air is seen. Recommend further evaluation with upper endoscopy. 2. There is nonspecific mild fat stranding of the ventral mesentery. 3. No bowel obstruction, free intraperitoneal air or abscess is seen. There is no appendicitis or diverticulitis. 4. No urinary calculus or obstruction is seen. 5. No abdominopelvic mass, free fluid or lymphadenopathy is seen. 6. There is mild generalized anasarca. 7. No acute or aggressive osseous finding is seen. Fleischner guidelines were followed.
--- NOTE | ~2023-04-24 | CT_ITS ---
EXAMINATION: CT HEAD WITHOUT CONTRAST CLINICAL INFORMATION: Altered mental status. COMPARISON: There are no prior studies available for comparison. TECHNIQUE: Multidetector CT imaging of the head was obtained without the use of intravenous contrast. Coronal and sagittal reformatted images were generated at the technologist workstation. This CT examination was performed using dose optimization techniques as appropriate, variously including the following: *Automated exposure control *Adjustment of mA and/or kV according to patient size (this includes techniques or standardized protocols for targeted exams where dose is matched to indication/reason for exam; i.e. extremities or head) *Use of iterative reconstruction technique DLP: 689 mGy-cm. FINDINGS: There is no evidence of acute intracranial hemorrhage or territorial infarction. No abnormal mass-effect or midline shift is seen. Sue to white matter differentiation is well preserved. No extra-axial fluid collections are identified. There is commensurate prominence of the ventricles and sulci consistent with diffuse volume loss, out of keeping with the patient's age. There are scattered areas of low-attenuation the periventricular subcortical white matter, consistent with chronic microvascular ischemic changes. There are no acute osseous or soft tissue abnormalities. There is moderate arthropathy of the left temporomandibular joint. The mastoid air cells are well-aerated. There is complete opacification of the right maxillary sinus with sclerotic valera, consistent with chronic changes. There is some opacification in the posterior left maxillary sinus with suggestion of a fluid level. CT/CT head/brain wo IV con IMPRESSION: 1. There are no acute bleeds or territorial infarcts. No masses are demonstrated. 2. There are chronic microvascular ischemic changes and there is diffuse volume loss, out of keeping with the patient's age. Correlate clinically.
[2023-04-24 13:19] LABS: MANUAL DIFF FLAG NO
[2023-04-24 13:25] LABS: Basophils Percent Auto 0.4 % (0-2); Eosinophils Percent Auto 0.2 % (0-4); Hematocrit 25.4 % (37.0-47.0); Hemoglobin 8.8 g/dl (12.0-16.0); Imm Gran Abs Auto 0.02 X10*3/uL (0.00-0.03); Imm Gran Pct Auto 0.4 % (0.0-0.4); Lymphocytes Absolute Auto 1.8 X10*3/uL (1.2-4.9); Lymphocytes Percent Auto 36.4 % (20-40); Mean Corpuscular HGB Conc 34.6 g/dl (31.0-35.0); Mean Corpuscular Volume 98.1 fL (80.0-98.0); Mean Platelet Volume 10.1 fL (9.4-12.3); Monocytes Absolute Auto 0.4 X10*3/uL (0.1-1.2); Monocytes Percent Auto 7.3 % (2-11); Neutrophils Absolute Auto 2.7 x10*3/uL (2.0-8.3); Neutrophils Percent Auto 55.3 % (45-73); Platelet Count 204 X10*3/uL (160-400); Red Blood Count 2.59 X10*6/uL (4.20-5.50); Red Cell Distribution Width 14.1 % (11.0-16.0)
[2023-04-24 13:39] LABS: Alanine Aminotransferase 9 U/L (0-31); Albumin Level 3.1 g/dL (3.5-5.0); Alkaline Phosphatase 98 U/L (39-117); Anion Gap 17 (12-20); Aspartate Amino Transferase 20 U/L (5-31); Bilirubin Total 0.8 mg/dL (0.0-1.0); Blood Urea Nitrogen 14 mg/dL (9-16); Calcium 9.3 mg/dL (8.4-10.2); Carbon Dioxide 29 mmol/L (22-29); Chloride 94 mmol/L (96-108); Estimated Glomerular Filt Rate > 60; Glucose Random 106 mg/dL (60-115); Sodium 136 mmol/L (135-145)
[2023-04-24] MEDS: Magnesium Sulfate/H2O 2 GM/50 ML PIGGYBACK IV (15:02)
--- NOTE | 2023-04-24 15:05 | ED_ITS ---
HPI - Altered Mental Status General Chief Complaint: Altered Mental Status Stated Complaint: AMS,+ UTI ON HOME TEST PER EMS Time Seen by Provider: 04/24/23 14:02 Source: patient Mode of arrival: EMS History of Present Illness HPI narrative: 63-year-old female, every day drinker, arrives with altered mental status since Sunday which was her last drink, patient states that she has been drinking a bowel prep for upper and lower endoscopy, she states that she has been having nonstop diarrhea but denies the presence of blood and denies hematemesis. is at bedside. Related Data Home Medications Medication Instructions Recorded Confirmed albuterol sulfate 90 mcg/actuation 2 puff PO QID PRN Shortness Of 04/24/23 04/24/23 aerosol inhaler (Ventolin HFA) Breath Or Wheezing diclofenac sodium 1 % topical gel 2 g topical QID PRN Pain 04/24/23 04/24/23 (Voltaren Arthritis Pain) Previous Rx's Medication Instructions Recorded duloxetine 20 mg capsule,delayed 20 mg PO BID #60 caps 09/21/20 release folic acid 400 mcg tablet 0.4 mg PO DAILY 30 days #30 tabs 11/16/22 omeprazole 20 mg capsule,delayed 20 mg PO DAILY #90 caps 12/29/22 release umeclidinium 62.5 mcg-vilanterol 1 inh inhalation DAILY #60 ea 12/29/22 25 mcg/actuation powdr for inhalation (Anoro Ellipta) valsartan 40 mg tablet 40 mg PO BID 3 months #180 tabs 01/29/23 cholecalciferol (vitamin D3) 50 50 mcg PO DAILY #30 caps 02/07/23 mcg (2,000 unit) capsule potassium chloride 10 mEq 10 meq PO DAILY 30 days #30 tabs 03/01/23 tablet,extended release (Klor-Con) magnesium oxide 500 mg capsule 500 mg PO BID #60 caps 03/27/23 loratadine 10 mg tablet (Allergy 10 mg PO DAILY #90 tabs 03/30/23 Relief (loratadine)) Allergies Allergy/AdvReac Type Severity Reaction Status Date / Time Sulfa (Sulfonamide Allergy Intermediate Redness of Verified 04/16/23 14:07 Antibiotics) Skin rash Review of Systems 2 Review of Systems: Pertinent positives and negatives as stated in HPI PMFSH Past Medical History Source: nursing notes reviewed Medical History Right arm fracture Peripheral neuropathy Multiple nodules of lung Weakness of left side of body Chronic back pain Arthritis COPD (chronic obstructive pulmonary disease) Depression Anxiety Surgical History Hx of colonoscopy History of hip surgery Previous back surgery H/O: hysterectomy Family History Family History Mother No problems noted. Father Lung cancer Social History Social History Housing: Other (trailer) Alcohol intake: current Alcohol intake frequency: 3 or more drinks per day Alcohol type: hard liquor Patient Tobacco Use Status: Current everyday Tobacco user Tobacco use type: Cigarette Cigarettes Per Day: 5 Years Smoked: 40 e-Cigarette/Vaping Use: Never Used Second Hand Smoke Exposure: Yes Advance Directives: No Advance Directives Information Provided: No service: No Current occupational status: unemployed Cognitive needs: Yes (walker, wheelchair) Hearing needs: No Vision needs: Yes (glasses) Physical Exam ED Vital Signs: Vital Signs - 24 hr 04/24/23 12:24 Temperature 96.3 F L Pulse Rate 89 Respiratory Rate 18 Blood Pressure 134/73 Pulse Oximetry 100 Oxygen Delivery Method Room Air BMI result Body Mass Index 15.5 VITAL SIGNS: Reviewed. GENERAL: Cachectic, pale, in no acute distress. HEAD: Normocephalic/atraumatic EYES: PERRLA, EOMI, pale conjunctiva EARS: Ext canals without abnormality NOSE: Nares patent bilateral OROPHARYNX: no oral lesions noted, posterior pharynx clear NECK: Supple, no adenopathy LUNGS: Normal breath sounds. No adventitious sounds or accessory muscle use. SpO2<100> CARDIOVASCULAR: Regular rate and rhythm without noted murmurs ABDOMEN: Soft, non-tender, non-distended with bowel sounds. 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 EXTREMITIES: No cyanosis, clubbing or edema. SKIN: Inspection of the skin reveals no rashes, but patient has pallor NEUROLOGIC: Alert and oriented x 2. Strength and sensation to light touch were grossly intact x 4. Medications Administered Discontinued Medications Generic Name Dose Route Start Last Admin Trade Name Freq PRN Reason Stop Dose Admin Magnesium Sulfate 2 gm in 50 mls @ 150 mls/hr 04/24/23 14:35 04/24/23 15:36 Magnesium Sulfate/H2o IV 04/24/23 14:54 Infused ONCE ONE Infusion Medical Decision Making Medical Decision Making [facility] Narrative: 1445: 63-year-old female with history and clinical presentation, DDX: Alcohol withdrawal, anemia, infection I reviewed all investigations and hematologic indices are negative for leukocytosis or left shift but there is a significant macrocytic anemia that is new when compared to approximately 1 month ago. However there is not a corresponding history of hematemesis or significant melena. Chemistry indices do not demonstrate CLARICE or electrolyte/liver enzyme abnormalities. Confirmed 4 g drop in patient's he hemoglobin, guaiac is negative. Ammonia is within normal limits and does not seem to be contributing to patient's altered mental status . On repeat magnesium levels the deficit has completely resolved. Signed out to Dr Sanches - f/u CT abd/pelvis - Transfuse 1U PRBCs Differential Diagnosis Differential Diagnoses: The differential diagnosis associated with the presentation includes Please see the discussion above Admission/Observation Consideration of admission/observation: Escalation of care including admission/observation considered Please see the discussion above Lab Data [facility] Lab Attestation statement: I reviewed the patient's lab results. Please see the discussion above 04/24/23 16:02 04/24/23 16:02 Labs: Lab Results 04/24/23 04/24/23 04/24/23 Range/Units 13:13 14:43 15:45 WBC 5.0 (4.8-10.8) X10*3/uL RBC 2.59 L D (4.20-5.50) X10*6/uL Hgb 8.8 L D (12.0-16.0) g/dl Hct 25.4 L D (37.0-47.0) % MCV 98.1 H (80.0-98.0) fL MCH 34.0 H (27.0-33.0) pg MCHC 34.6 (31.0-35.0) g/dl RDW 14.1 (11.0-16.0) % Plt Count 204 D (160-400) X10*3/uL MPV 10.1 (9.4-12.3) fL Immature Gran % (Auto) 0.4 (0.0-0.4) % Neut % (Auto) 55.3 (45-73) % Lymph % (Auto) 36.4 (20-40) % [place] % (Auto) 7.3 (2-11) % Eos % (Auto) 0.2 (0-4) % Baso % (Auto) 0.4 (0-2) % Lymph # (Auto) 1.8 (1.2-4.9) X10*3/uL [place] # (Auto) 0.4 (0.1-1.2) X10*3/uL Eos # (Auto) 0.0 (0.0-0.4) X10*3/uL Baso # (Auto) 0.0 (0.0-0.2) X10*3/uL Abs Immat Gran (auto) 0.02 (0.00-0.03) X10*3/uL Absolute Neuts (auto) 2.7 (2.0-8.3) x10*3/uL Absolute Nucleated RBC 0.000 (0.0-0.012) X10*3/uL Nucleated RBC % (auto) 0.0 (0.0-0.2) /100WBC Sodium 136 (135-145) mmol/L Potassium 4.0 (3.3-5.1) mmol/L Chloride 94 L (96-108) mmol/L Carbon Dioxide 29 (22-29) mmol/L Anion Gap 17 (12-20) BUN 14 (9-16) mg/dL Creatinine 0.67 (0.5-1.4) mg/dL Estim Creat Clear Calc 57.0 Estimated GFR > 60 Random Glucose 106 (60-115) mg/dL Calcium 9.3 (8.4-10.2) mg/dL Magnesium 1.0 L* (1.6-2.6) mg/dL Total Bilirubin 0.8 (0.0-1.0) mg/dL AST 20 (5-31) U/L ALT 9 (0-31) U/L Alkaline Phosphatase 98 (39-117) U/L Ammonia (13-55) umol/L Total Protein 6.0 L (6.5-8.0) g/dL Albumin 3.1 L (3.5-5.0) g/dL Stool Occult Blood NEGATIVE (NEGATIVE) Blood Type AB Positive Antibody Screen NEGATIVE 04/24/23 Range/Units 16:02 WBC 4.7 L (4.8-10.8) X10*3/uL RBC 2.42 L (4.20-5.50) X10*6/uL Hgb 8.5 L (12.0-16.0) g/dl Hct 23.7 L (37.0-47.0) % MCV 97.9 (80.0-98.0) fL MCH 35.1 H (27.0-33.0) pg MCHC 35.9 H (31.0-35.0) g/dl RDW 13.8 (11.0-16.0) % Plt Count 196 (160-400) X10*3/uL MPV 10.0 (9.4-12.3) fL Immature Gran % (Auto) (0.0-0.4) % Neut % (Auto) (45-73) % Lymph % (Auto) (20-40) % [place] % (Auto) (2-11) % Eos % (Auto) (0-4) % Baso % (Auto) (0-2) % Lymph # (Auto) (1.2-4.9) X10*3/uL [place] # (Auto) (0.1-1.2) X10*3/uL Eos # (Auto) (0.0-0.4) X10*3/uL Baso # (Auto) (0.0-0.2) X10*3/uL Abs Immat Gran (auto) (0.00-0.03) X10*3/uL Absolute Neuts (auto) (2.0-8.3) x10*3/uL Absolute Nucleated RBC 0.000 (0.0-0.012) X10*3/uL Nucleated RBC % (auto) 0.0 (0.0-0.2) /100WBC Sodium 135 (135-145) mmol/L Potassium 3.7 (3.3-5.1) mmol/L Chloride 94 L (96-108) mmol/L Carbon Dioxide 28 (22-29) mmol/L Anion Gap 17 (12-20) BUN 14 (9-16) mg/dL Creatinine 0.64 (0.5-1.4) mg/dL Estim Creat Clear Calc 59.7 Estimated GFR > 60 Random Glucose 100 (60-115) mg/dL Calcium 9.1 (8.4-10.2) mg/dL Magnesium 2.0 (1.6-2.6) mg/dL Total Bilirubin (0.0-1.0) mg/dL AST (5-31) U/L ALT (0-31) U/L Alkaline Phosphatase (39-117) U/L Ammonia 25 (13-55) umol/L Total Protein (6.5-8.0) g/dL Albumin (3.5-5.0) g/dL Stool Occult Blood (NEGATIVE) Blood Type Antibody Screen External Record Review External record reviewed: Outpatient record and Prior outpatient labs Chronic Conditions Patient?s care impacted by: Hypertension Social Determinants Patient?s care significantly limited by Social Determinants of Health including: Alcoholism and drug addiction in family Critical Care Time Critical Care Time Critical Care Time: Yes Total Critical Care Time: 60 Attestation: I personally attest to this time spent taking care of the patient. Discharge Plan Discharge Clinical Impression: Mental status alteration, Alcohol withdrawal, Acute anemia Patient Disposition: Admitted As Inpatient Prescriptions: No Action duloxetine 20 mg capsule,delayed release(DR/EC) 20 mg PO BID Qty: 60 1RF folic acid 400 mcg tablet 0.4 mg PO DAILY 30 Days Qty: 30 3RF omeprazole 20 mg capsule,delayed release(DR/EC) 20 mg PO DAILY Qty: 90 1RF Anoro Ellipta 62.5-25 mcg/actuation blister with device 1 inh inhalation DAILY Qty: 60 5RF valsartan 40 mg tablet 40 mg PO BID 90 Days Qty: 180 0RF Rx Instructions: hold for bp less than 100/50 recheck bp in 30-60 min and continue to hold if needed cholecalciferol (vitamin D3) 50 mcg (2,000 unit) capsule 50 mcg PO DAILY Qty: 30 2RF potassium chloride [Klor-Con 10] 10 mEq tablet extended release 10 meq PO DAILY 30 Days Qty: 30 1RF magnesium oxide 500 mg capsule 500 mg PO BID Qty: 60 1RF albuterol sulfate [Ventolin HFA] 90 mcg/actuation HFA aerosol inhaler 2 puff PO QID PRN (Reason: Shortness Of Breath Or Wheezing) diclofenac sodium [Voltaren Arthritis Pain] 1 % gel 2 g topical QID PRN (Reason: Pain) Rx Instructions: apply to right shoulder loratadine [Allergy Relief (loratadine)] 10 mg tablet 10 mg PO DAILY Qty: 90 1RF
[2023-04-24 15:52] LABS: OBS Int Ctl Valid YES; OBS1 NEGATIVE (NEGATIVE)
[2023-04-24 16:12] LABS: Hematocrit 23.7 % (37.0-47.0); Hemoglobin 8.5 g/dl (12.0-16.0); Mean Corpuscular HGB Conc 35.9 g/dl (31.0-35.0); Mean Corpuscular Hemoglobin 35.1 pg (27.0-33.0); Mean Corpuscular Volume 97.9 fL (80.0-98.0); Platelet Count 196 X10*3/uL (160-400); Red Blood Count 2.42 X10*6/uL (4.20-5.50); Red Cell Distribution Width 13.8 % (11.0-16.0); White Blood Count 4.7 X10*3/uL (4.8-10.8)
[2023-04-24 16:18] LABS: Ammonia 25 umol/L (13-55)
[2023-04-24 16:27] LABS: Anion Gap 17 (12-20); Blood Urea Nitrogen 14 mg/dL (9-16); Calcium 9.1 mg/dL (8.4-10.2); Carbon Dioxide 28 mmol/L (22-29); Chloride 94 mmol/L (96-108); Creatinine Clr Calc Pharmacy 59.7; Estimated Glomerular Filt Rate > 60; Glucose Random 100 mg/dL (60-115); Potassium 3.7 mmol/L (3.3-5.1); Sodium 135 mmol/L (135-145)
--- NOTE | 2023-04-24 16:36 | PHA.MEDREC ---
Pharmacy Consult ? Medication Reconciliation Pharmacy has completed the medication reconciliation. Patient and spouse confirmed medicaitons. Reports need a new script for loratadine. Danyell Vogel, PharmD
[2023-04-24] MEDS: iohexoL 350 MG/ML 100 ML INFUS..BTL IV (17:01)
[2023-04-24 17:44] LABS: INTERNATIONAL NORM RATIO 0.9 (0.9-1.1); Prothrombin Time 10.5 SEC (11.1-13.3)
--- NOTE | 2023-04-24 18:08 | PC.NURSE ---
first unit of blood infusing at this time, patient showing no signs/symptoms of distress or reaction. family remains at bedside at this time
--- NOTE | 2023-04-24 19:28 | MHC.EDTECH ---
Patient changed and repositioned
--- NOTE | 2023-04-24 20:41 | P.HPHOSP_ITS ---
History of Present Illness Date of Service: 04/24/23 Chief Complaint: Weakness This is a 63-year-old female with pertinent history of alcohol use disorder with history of alcohol withdrawals, essential hypertension, COPD not on home oxygen, gastroesophageal reflux disease who presents to the emergency department for evaluation of weakness. Patient states she is here for weakness which has been ongoing for the last 1 week. Admits to drinking alcohol every day, last drink was 3 days prior to presentation. Does have a history of alcohol withdrawals. Patient is a poor historian and unable to obtain detailed history. Patient states she is drinking bowel prep for colonoscopy. Has been having diarrhea but no melena or hematemesis. Also complaints of abdominal discomfort, which is nonradiating, intermittent and without any relieving factors. No fever, chills, chest discomfort, palpitations, shortness of breath. In the emergency department, hemoglobin was found to be low and PRBC was ordered Review of Systems 2 Constitutional: Constitutional: Reports fatigue, Reports lethargy and Reports weakness Cardiovascular: Cardiovascular: Reports no additional cardiovascular complaints Respiratory: Respiratory: Reports no additional respiratory complaints Gastrointestinal: Gastrointestinal: Reports no additional gastrointestinal complaints Genitourinary: Genitourinary: Reports no additional female genitourinary complaints Neurologic: Reports weakness Endocrine: Endocrine: Reports fatigue [facility] Medical History Right arm fracture Peripheral neuropathy Multiple nodules of lung Weakness of left side of body Chronic back pain Arthritis COPD (chronic obstructive pulmonary disease) Depression Anxiety Family History Mother No problems noted. Father Lung cancer Surgical History Hx of colonoscopy History of hip surgery Previous back surgery H/O: hysterectomy Social History Housing: Other (trailer) Alcohol intake: current Alcohol intake frequency: 3 or more drinks per day Alcohol type: hard liquor Patient Tobacco Use Status: Current everyday Tobacco user Tobacco use type: Cigarette Cigarettes Per Day: 5 Years Smoked: 40 e-Cigarette/Vaping Use: Never Used Second Hand Smoke Exposure: Yes Advance Directives: No Advance Directives Information Provided: No service: No Current occupational status: unemployed Cognitive needs: Yes (walker, wheelchair) Hearing needs: No Vision needs: Yes (glasses) Meds Allergies Allergy/AdvReac Type Severity Reaction Status Date / Time Sulfa (Sulfonamide Allergy Intermediate Redness of Verified 04/16/23 14:07 Antibiotics) Skin rash Active Medications: Current Medications Acetaminophen (Acetaminophen 325 Mg Tablet) 650 mg PO Q6H PRN PRN Reason: Pain, Mild (Pain Scale 1-3) Thiamine HCl 100 mg/ Sodium (Chloride) 101 mls @ 202 mls/hr IV ONCE ONE Stop: 04/24/23 21:09 Melatonin (Melatonin 3 Mg Tablet) 6 mg PO BEDTIME PRN PRN Reason: Insomnia Ondansetron HCl (Ondansetron Hcl 4 Mg/2 Ml Vial) 4 mg IVPUSH Q8H PRN PRN Reason: Nausea and Vomiting Pharmacy Consult (Consult Rx Etoh Phenob Im/Po) 1 each MISCELLANE ONCE PRN; Protocol PRN Reason: Consult order Phenobarbital (Phenobarbital 30 Mg Tablet) 30 mg PO BID [facility]; Protocol Stop: 04/26/23 21:01 Phenobarbital (Phenobarbital 15 Mg Tablet) 15 mg PO BID [facility]; Protocol Stop: 04/28/23 21:01 Phenobarbital (Phenobarbital 15 Mg Tablet) 15 mg PO DAILY [facility]; Protocol Stop: 04/30/23 09:01 Phenobarbital Sodium (Phenobarbital Sodium 130 Mg/Ml Im Once) 163.8 mg IM ONCE ONE; Protocol Stop: 04/24/23 21:01 Phenobarbital Sodium (Phenobarbital Sodium 130 Mg/Ml Vial Im Q3hx2) 123.5 mg IM Q3H [facility]; Protocol Stop: 04/25/23 03:01 Sodium Chloride (0.9 % Sodium Chloride Flush 3 Ml Syringe) 3 ml IVFLUSH QSHIFT [facility] Home Medications Medication Instructions Recorded Confirmed Last Taken Type albuterol sulfate 90 mcg/actuation 2 puff PO QID PRN Shortness Of 04/24/23 04/24/23 Unknown History aerosol inhaler (Ventolin HFA) Breath Or Wheezing diclofenac sodium 1 % topical gel 2 g topical QID PRN Pain 04/24/23 04/24/23 Unknown History (Voltaren Arthritis Pain) Physical Exam 2 Vital Signs and Narrative: Vital Signs: Last Vital Signs Temp 97.9 F 04/24/23 19:18 Pulse 84 04/24/23 19:18 Resp 13 04/24/23 19:18 BP 160/96 H 04/24/23 19:18 Pulse Ox 99 04/24/23 19:18 O2 Del Method Room Air 04/24/23 19:18 BMI result Body Mass Index 15.5 Middle-aged female lying in bed in no distress Neck supple, no JVD Regular rate and rhythm, S1-S2 heard Regular breath sounds bilaterally, no wheezing or crackles appreciated Abdomen soft nontender, no guarding, no rigidity Patient is awake, alert and oriented to self, place, disoriented to time and person ; no focal motor deficit Psych: Normal mood No pedal edema Results Labs 04/24/23 16:02 04/24/23 16:02 Labs: Laboratory Results - last 24 hr 04/24/23 04/24/23 04/24/23 13:13 14:43 15:45 MCV 98.1 H MCH 34.0 H MCHC 34.6 RDW 14.1 Plt Count 204 D MPV 10.1 Immature Gran % (Auto) 0.4 Neut % (Auto) 55.3 Lymph % (Auto) 36.4 [place] % (Auto) 7.3 Eos % (Auto) 0.2 Baso % (Auto) 0.4 Lymph # (Auto) 1.8 [place] # (Auto) 0.4 Eos # (Auto) 0.0 Baso # (Auto) 0.0 Abs Immat Gran (auto) 0.02 Absolute Neuts (auto) 2.7 Absolute Nucleated RBC 0.000 Nucleated RBC % (auto) 0.0 PT INR Anion Gap 17 Estim Creat Clear Calc 57.0 Estimated GFR > 60 Random Glucose 106 Calcium 9.3 Magnesium 1.0 L* Total Bilirubin 0.8 AST 20 ALT 9 Alkaline Phosphatase 98 Ammonia Total Protein 6.0 L Albumin 3.1 L Stool Occult Blood NEGATIVE Blood Type AB Positive Antibody Screen NEGATIVE Crossmatch See Detail 04/24/23 04/24/23 16:02 17:34 MCV 97.9 MCH 35.1 H MCHC 35.9 H RDW 13.8 Plt Count 196 MPV 10.0 Immature Gran % (Auto) Neut % (Auto) Lymph % (Auto) [place] % (Auto) Eos % (Auto) Baso % (Auto) Lymph # (Auto) [place] # (Auto) Eos # (Auto) Baso # (Auto) Abs Immat Gran (auto) Absolute Neuts (auto) Absolute Nucleated RBC 0.000 Nucleated RBC % (auto) 0.0 PT 10.5 L INR 0.9 Anion Gap 17 Estim Creat Clear Calc 59.7 Estimated GFR > 60 Random Glucose 100 Calcium 9.1 Magnesium 2.0 Total Bilirubin AST ALT Alkaline Phosphatase Ammonia 25 Total Protein Albumin Stool Occult Blood Blood Type Antibody Screen Crossmatch Assessment and Plan (1) Acute anemia: Status: Acute (2) Alcohol withdrawal: Status: Acute Plan This is a 63-year-old female with pertinent history of alcohol use disorder with history of alcohol withdrawals, essential hypertension, COPD not on home oxygen, gastroesophageal reflux disease who presents to the emergency department for evaluation of weakness. #. Symptomatic anemia: PRBC ordered in the ER. Will admit patient with cardiac monitoring. Noted significant drop in hemoglobin. Administering IV Protonix and will keep patient NPO. Consulted Gastroenterology, appreciate assistance. Iron profile, folic acid and B12 pending #. Alcohol use disorder with concerns for alcohol withdrawal: Initiated on phenobarb protocol in the ER. Administering thiamine and folic acid. Consulting Addiction Team #. Acute toxic encephalopathy in the setting of above #. COPD: No exacerbation during admission. Continue home inhalers #. Gastroesophageal reflux disease: On PPI Med rec pending DVT prophylaxis: Mechanical Admit as inpatient and will require two night minimum hospital stay for close hemodynamic monitoring and hemoglobin in the setting of symptomatic anemia, which cannot be achieved in a lesser acute setting. Specialist consult pending. Quality Stroke Does the patient have a stroke diagnosis?: No VTE Prior VTE?: No VTE Risk Level:: Medical - moderate - high VTE Device Contraindication: N/A - Device Ordered VTE Drug Contraindication: Treatment Not Indicated
[2023-04-24] MEDS: Thiamine HCL 100 MG in 0.9 % Sodium Chloride 100 ML 202 MG IV (21:39)
[2023-04-24] MEDS: Pantoprazole Sodium 40 MG/10 ML VIAL 80 MG IVPUSH (21:39)
[2023-04-24] MEDS: PHENobarbitaL sodium 130 MG/ML IM ONCE 163.8 MG IM (21:49)
[2023-04-24 22:28] LABS: Iron 200 mcg/dL (30-160); Percent Iron Saturation 89 % (15-50); Total Iron Binding Capacity 225 mcg/dL (228-428); Unsaturated Iron Binding < 25 ug/dL
[2023-04-24 23:03] LABS: Folate 7.4 ng/mL (> or = 4.0); Vitamin B12 501 pg/mL (200-900)
[2023-04-25] VITALS (9 sets, daily range): BP systolic 117–177; BP diastolic 61–97; PULSE 80–98; RESP 14–98; TEMP 35.9–36.7; O2SAT 96–100; BMI 17.2
[2023-04-25] MEDS: PHENobarbitaL sodium 130 MG/ML VIAL IM Q3Hx2 123.5 MG IM ×2 (00:02→03:12)
[2023-04-25] MEDS: 0.9 % Sodium Chloride Flush 3 ML SYRINGE IVFLUSH ×4 (00:05→20:55)
[2023-04-25 05:56] LABS: MANUAL DIFF FLAG NO
[2023-04-25 06:16] LABS: Basophils Percent Auto 0.9 % (0-2); Eosinophils Percent Auto 0.2 % (0-4); Hematocrit 30.8 % (37.0-47.0); Hemoglobin 10.8 g/dl (12.0-16.0); Imm Gran Abs Auto 0.02 X10*3/uL (0.00-0.03); Imm Gran Pct Auto 0.4 % (0.0-0.4); Lymphocytes Percent Auto 43.5 % (20-40); Mean Corpuscular HGB Conc 35.1 g/dl (31.0-35.0); Mean Corpuscular Hemoglobin 33.3 pg (27.0-33.0); Mean Corpuscular Volume 95.1 fL (80.0-98.0); Mean Platelet Volume 10.6 fL (9.4-12.3); Monocytes Absolute Auto 0.3 X10*3/uL (0.1-1.2); Monocytes Percent Auto 7.4 % (2-11); Neutrophils Absolute Auto 2.2 x10*3/uL (2.0-8.3); Neutrophils Percent Auto 47.6 % (45-73); Platelet Count 173 X10*3/uL (160-400); Red Blood Count 3.24 X10*6/uL (4.20-5.50); Red Cell Distribution Width 14.7 % (11.0-16.0); White Blood Count 4.6 X10*3/uL (4.8-10.8)
[2023-04-25 06:44] LABS: Alanine Aminotransferase 8 U/L (0-31); Albumin Level 2.9 g/dL (3.5-5.0); Alkaline Phosphatase 89 U/L (39-117); Anion Gap 17 (12-20); Aspartate Amino Transferase 18 U/L (5-31); Bilirubin Total 1.2 mg/dL (0.0-1.0); Blood Urea Nitrogen 14 mg/dL (9-16); Calcium 8.7 mg/dL (8.4-10.2); Carbon Dioxide 25 mmol/L (22-29); Chloride 96 mmol/L (96-108); Creatinine Clr Calc Pharmacy 63.3; Estimated Glomerular Filt Rate > 60; Glucose Random 76 mg/dL (60-115); Potassium 2.9 mmol/L (3.3-5.1); Sodium 135 mmol/L (135-145); Total Protein 5.7 g/dL (6.5-8.0)
[2023-04-25] MEDS: Potassium Chloride/H20 10 MEQ/100 ML PIGGYBACK 100 MEQ IV ×4 (07:42→11:02)
[2023-04-25] MEDS: Albuterol/Iprat 2.5/0.5MG 3 ML AMPUL.NEB INHALE ×4 (07:45→19:19)
[2023-04-25] MEDS: Thiamine HCL 100 MG in 0.9 % Sodium Chloride 100 ML 202 MG IV (08:30)
[2023-04-25] MEDS: PHENobarbitaL 30 MG TABLET PO ×2 (08:31→20:55)
[2023-04-25] MEDS: Folic Acid 1 MG in 0.9 % Sodium Chloride 50 ML 100.4 MG IV (09:25)
--- NOTE | 2023-04-25 09:53 | MHC.CM.PN ---
CM MET WITH PT AT BEDSIDE. PT LIVES WITH SIG. OTHER. INDEPENDENT AT BASELINE. +DRIVES. NO COVID VAX. PT HAS A HCP BUT UNSURE WHERE COPY IS. CM OFFERED TO DO A NEW ONE WITH PT WHILE SHE IS HERE. PCP DC SELBY DP: HOME, NO SERVICES ANTICIPATED BUT CM WILL CONTINUE TO FOLLOW FOR ANY CHANGE IN DC NEEDS/PLAN. PT HAS OWN RIDE HOME.
--- NOTE | 2023-04-25 10:14 | P.CNGI_ITS ---
History of Present Illness Data of Consult Service Date: 04/25/23 Requesting physician: Janie Mello Primary Care Provider: BAL Walton HPI Reason for consult: Anemia, abnormal scan This is a 63y.o F with PMH of COPD, tobacco use disorder, HTN, who is currently admitted for altered mental status and was found to have worsening anemia and abnormal CT scan. Pt was booked for an EGD/colonoscopy as outpatient for chronic diarrhea with unintentional weight loss ongoing x 2 months however that day was brought to the hospital by her daughter for confusion and hallucination. On initial work up was found to have acute on chronic anemia - initial Hb recorded as 8.5 however suspect was likely closer to 9 given improvement to 10.8 on 1unit PRBC. Currently at the time of assessment, pt does not report any abd pain but does report ongoing diarrhea still, does not report melena or hematochezia. Daughter at bedside reports that mental status has improved but not back to baseline entirely. She also voiced concern re possible urinary retention however no obstruction noted on CT. UA normal. [facility], LAT[facility] Past Medical History Medical History Right arm fracture Peripheral neuropathy Multiple nodules of lung Weakness of left side of body Chronic back pain Arthritis COPD (chronic obstructive pulmonary disease) Depression Anxiety Family History Family History Mother No problems noted. Father Lung cancer Surgical History Surgical History Hx of colonoscopy History of hip surgery Previous back surgery H/O: hysterectomy Social History Social History Household Members: Friend(s) Housing: Other Housing Other:: trailer Do you presently have visiting nurse or other home services: No Alcohol intake: current Alcohol intake frequency: 3 or more drinks per day Alcohol type: hard liquor Patient Tobacco Use Status: Current everyday Tobacco user Tobacco use type: Cigarette Cigarettes Per Day: 5 Years Smoked: 40 Smoked in Last 30 Days: Yes e-Cigarette/Vaping Use: Never Used Patient Interested in Nicotine Replacement: Yes Patient Given Instructions on How to Stop Smoking: No Second Hand Smoke Exposure: Yes Use of substances other than those prescribed or required for medical reasons: No Currently Displaying Signs/Symptoms of Drug Intoxication Withdrawal: No Have you been hit, kicked, punched, or otherwise hurt by someone within the past year? If so, by whom?: No Do you feel safe in your current relationship?: Yes Is there a partner from a previous relationship who is making you feel unsafe now?: No Are you made to feel afraid or neglected: No Advance Directives: No Advance Directives Information Provided: No Do you have thoughts of harming others: None Do you have a plan to hurt others: No Plan Recently lost weight without trying: No How much weight loss: Not applicable Eating poorly because of decreased appetite: No Nutrition screen score: 0 Nutrition Risks: No Nutritional Risk Patient : No : No Poor oral hygiene: No service: No Current occupational status: unemployed Cognitive needs: Yes (walker, wheelchair) Hearing needs: No Vision needs: Yes (glasses) Meds Allergies Allergy/AdvReac Type Severity Reaction Status Date / Time Sulfa (Sulfonamide Allergy Intermediate Redness of Verified 04/16/23 14:07 Antibiotics) Skin rash Active Medications: Current Medications Acetaminophen (Acetaminophen 325 Mg Tablet) 650 mg PO Q6H PRN PRN Reason: Pain, Mild (Pain Scale 1-3) Albuterol/Ipratropium (Albuterol/Iprat 2.5/0.5mg 3 Ml Ampul.Neb) 3 ml INHALE RQ4H WHILE AWAKE [facility] Last Admin: 04/25/23 07:45 Dose: 3 ml Thiamine HCl 100 mg/ Sodium (Chloride) 101 mls @ 202 mls/hr IV DAILY [facility] Last Infusion: 04/25/23 08:35 Dose: Infused Folic Acid 1 mg/ Sodium (Chloride) 50.2 mls @ 100.4 mls/hr IV DAILY [facility] Last Infusion: 04/25/23 10:05 Dose: Infused Potassium Chloride (Potassium Chloride/H20) 10 meq in 100 mls @ 100 mls/hr IV Q1H [facility] Stop: 04/25/23 11:29 Last Admin: 04/25/23 09:50 Dose: 100 mls/hr Melatonin (Melatonin 3 Mg Tablet) 6 mg PO BEDTIME PRN PRN Reason: Insomnia Ondansetron HCl (Ondansetron Hcl 4 Mg/2 Ml Vial) 4 mg IVPUSH Q8H PRN PRN Reason: Nausea and Vomiting Pharmacy Consult (Consult Rx Etoh Phenob Im/Po) 1 each MISCELLANE ONCE PRN; Protocol PRN Reason: Consult order Phenobarbital (Phenobarbital 30 Mg Tablet) 30 mg PO BID [facility]; Protocol Stop: 04/26/23 21:01 Last Admin: 04/25/23 08:31 Dose: 30 mg Phenobarbital (Phenobarbital 15 Mg Tablet) 15 mg PO BID [facility]; Protocol Stop: 04/28/23 21:01 Phenobarbital (Phenobarbital 15 Mg Tablet) 15 mg PO DAILY [facility]; Protocol Stop: 04/30/23 09:01 Sodium Chloride (0.9 % Sodium Chloride Flush 3 Ml Syringe) 3 ml IVFLUSH QSHIFT [facility] Last Admin: 04/25/23 07:36 Dose: 3 ml Home Medications Medication Instructions Recorded Confirmed Last Taken Type albuterol sulfate 90 mcg/actuation 2 puff PO QID PRN Shortness Of 04/24/23 04/24/23 Unknown History aerosol inhaler (Ventolin HFA) Breath Or Wheezing diclofenac sodium 1 % topical gel 2 g topical QID PRN Pain 04/24/23 04/24/23 Unknown History (Voltaren Arthritis Pain) Physical Exam 2 Vital Signs: Vital Signs: Last Vital Signs Temp 96.8 F 04/25/23 07:19 Pulse 80 04/25/23 07:49 Resp 16 04/25/23 07:49 BP 138/81 04/25/23 07:19 Pulse Ox 100 04/25/23 07:19 O2 Del Method Room Air 04/25/23 07:19 BMI result Body Mass Index 17.2 Gen appear: Nontoxic appearing HEENT: nonicteric, no cervical lymphadenopathy Chest: CTA CVS: Regular S1/S2 Abd: soft, mildly distended and tender Ext: no peripheral edema Neuro: A/Ox2, noted to move all extremities spontaneously Results Labs 04/25/23 05:01 04/25/23 14:29 Labs: Short CBC 04/24/23 04/24/23 04/25/23 Range/Units 13:13 16:02 05:01 WBC 5.0 4.7 L 4.6 L (4.8-10.8) X10*3/uL Hgb 8.8 L D 8.5 L 10.8 L D (12.0-16.0) g/dl Hct 25.4 L D 23.7 L 30.8 L D (37.0-47.0) % Plt Count 204 D 196 173 (160-400) X10*3/uL BMP 04/24/23 04/24/23 04/25/23 13:13 16:02 05:01 Sodium 136 135 135 Potassium 4.0 3.7 2.9 L D Chloride 94 L 94 L 96 Carbon Dioxide 29 28 25 BUN 14 14 14 Creatinine 0.67 0.64 0.67 Calcium 9.3 9.1 8.7 Liver Function 04/24/23 04/25/23 Range/Units 13:13 05:01 Total Bilirubin 0.8 1.2 H (0.0-1.0) mg/dL AST 20 18 (5-31) U/L ALT 9 8 (0-31) U/L Alkaline Phosphatase 98 89 (39-117) U/L Albumin 3.1 L 2.9 L (3.5-5.0) g/dL Imaging CT scan - abdomen: Radiologist's impression: There is marked concentric wall thickening of the gastric antrum (3:23 and 8:63). The small and large bowel are unremarkable. No obstruction, free intraperitoneal air or abscess is seen. There are foci of focal colonic contraction, without underlying intrinsic wall thickening. No diverticulosis or diverticulitis is seen. The vermiform appendix is unremarkable. There is mild stranding of ventral mesenteric fat. Assessment and Plan (1) Acute anemia: Status: Acute (2) Mental status alteration: Status: Acute (3) Unintentional weight loss: Status: Acute (4) Diarrhea: Status: Acute Plan As previously planned, pt will be booked for bidirectional endoscopy to evaluate for i) thickening in antrum, ii) anemia, iii) chronic diarrhea and iv) unintentional weight loss. Ddx include gastric malignancy, large ulcer, enteropathy, paraneoplastic syndrome. Colitis less likely as normal appearance of colon on CT. Plan: - Can have CLD today - Golytely prep ordered - pt may not need to drink all of it as also prepped Sunday evening and has since then been on clear liquid diet - EGD/colo tmrw. Daughter was informed that we may call her for consent if pt unable to consent for herself. - Please recheck lytes and Mg tmrw AM and replete as needed prior to the procedure. Thank you for allowing me to participate in her care. Please do not hesitate to reach out for any questions or concerns. Procedures Date of Service Date of Service: 04/25/23
--- NOTE | 2023-04-25 10:33 | P.PNIM_ITS ---
Subjective Subjective Date of Service: 04/25/23 Interval History: weakness Physical Exam 2 Vital Signs: Vital Signs: Last Vital Signs Temp 96.8 F 04/25/23 07:19 Pulse 80 04/25/23 07:49 Resp 16 04/25/23 07:49 BP 138/81 04/25/23 07:19 Pulse Ox 100 04/25/23 07:19 O2 Del Method Room Air 04/25/23 07:19 BMI result Body Mass Index 17.2 General: AO X 1, no acute distress Resp: CTA bilateral, no accessory muscles used CVS: S1,S2,RRR GI: soft, non tender, non distended Neuro: motor grossly intact, alert Objective Data Active Medications Acetaminophen (Acetaminophen 325 Mg Tablet) 650 mg PO Q6H PRN PRN Reason: Pain, Mild (Pain Scale 1-3) Albuterol/Ipratropium (Albuterol/Iprat 2.5/0.5mg 3 Ml Ampul.Neb) 3 ml INHALE RQ4H WHILE AWAKE [facility] Last Admin: 04/25/23 07:45 Dose: 3 ml Documented By: KAROLINA Thiamine HCl 100 mg/ Sodium (Chloride) 101 mls @ 202 mls/hr IV DAILY [facility] Last Infusion: 04/25/23 08:35 Dose: Infused Documented By: JOSEPH Folic Acid 1 mg/ Sodium (Chloride) 50.2 mls @ 100.4 mls/hr IV DAILY [facility] Last Infusion: 04/25/23 10:05 Dose: Infused Documented By: JOSEPH Potassium Chloride (Potassium Chloride/H20) 10 meq in 100 mls @ 100 mls/hr IV Q1H [facility] Stop: 04/25/23 11:29 Last Admin: 04/25/23 09:50 Dose: 100 mls/hr Documented By: JOSEPH Melatonin (Melatonin 3 Mg Tablet) 6 mg PO BEDTIME PRN PRN Reason: Insomnia Ondansetron HCl (Ondansetron Hcl 4 Mg/2 Ml Vial) 4 mg IVPUSH Q8H PRN PRN Reason: Nausea and Vomiting Pharmacy Consult (Consult Rx Etoh Phenob Im/Po) 1 each MISCELLANE ONCE PRN; Protocol PRN Reason: Consult order Phenobarbital (Phenobarbital 30 Mg Tablet) 30 mg PO BID [facility]; Protocol Stop: 04/26/23 21:01 Last Admin: 04/25/23 08:31 Dose: 30 mg Documented By: JOSEPH Phenobarbital (Phenobarbital 15 Mg Tablet) 15 mg PO BID [facility]; Protocol Stop: 04/28/23 21:01 Phenobarbital (Phenobarbital 15 Mg Tablet) 15 mg PO DAILY [facility]; Protocol Stop: 04/30/23 09:01 Sodium Chloride (0.9 % Sodium Chloride Flush 3 Ml Syringe) 3 ml IVFLUSH QSHIFT [facility] Last Admin: 04/25/23 07:36 Dose: 3 ml Documented By: JOSEPH Labs 04/25/23 05:01 04/25/23 05:01 Labs: Laboratory Results - last 24 hr 04/24/23 04/24/23 04/24/23 13:13 14:43 15:45 MCV 98.1 H MCH 34.0 H MCHC 34.6 RDW 14.1 Plt Count 204 D MPV 10.1 Immature Gran % (Auto) 0.4 Neut % (Auto) 55.3 Lymph % (Auto) 36.4 Pepin % (Auto) 7.3 Eos % (Auto) 0.2 Baso % (Auto) 0.4 Lymph # (Auto) 1.8 Pepin # (Auto) 0.4 Eos # (Auto) 0.0 Baso # (Auto) 0.0 Abs Immat Gran (auto) 0.02 Absolute Neuts (auto) 2.7 Absolute Nucleated RBC 0.000 Nucleated RBC % (auto) 0.0 PT INR Anion Gap 17 Estim Creat Clear Calc 57.0 Estimated GFR > 60 Random Glucose 106 Calcium 9.3 Magnesium 1.0 L* Iron TIBC % Saturation Unsat Iron Binding Total Bilirubin 0.8 AST 20 ALT 9 Alkaline Phosphatase 98 Ammonia Total Protein 6.0 L Albumin 3.1 L Vitamin B12 Folate Stool Occult Blood NEGATIVE Blood Type AB Positive Antibody Screen NEGATIVE Crossmatch See Detail 04/24/23 04/24/23 04/24/23 16:02 17:34 21:59 MCV 97.9 MCH 35.1 H MCHC 35.9 H RDW 13.8 Plt Count 196 MPV 10.0 Immature Gran % (Auto) Neut % (Auto) Lymph % (Auto) Pepin % (Auto) Eos % (Auto) Baso % (Auto) Lymph # (Auto) Pepin # (Auto) Eos # (Auto) Baso # (Auto) Abs Immat Gran (auto) Absolute Neuts (auto) Absolute Nucleated RBC 0.000 Nucleated RBC % (auto) 0.0 PT 10.5 L INR 0.9 Anion Gap 17 Estim Creat Clear Calc 59.7 Estimated GFR > 60 Random Glucose 100 Calcium 9.1 Magnesium 2.0 Iron 200 H TIBC 225 L % Saturation 89 H Unsat Iron Binding < 25 Total Bilirubin AST ALT Alkaline Phosphatase Ammonia 25 Total Protein Albumin Vitamin B12 501 Folate 7.4 Stool Occult Blood Blood Type Antibody Screen Crossmatch 04/25/23 05:01 MCV 95.1 MCH 33.3 H MCHC 35.1 H RDW 14.7 Plt Count 173 MPV 10.6 Immature Gran % (Auto) 0.4 Neut % (Auto) 47.6 Lymph % (Auto) 43.5 H Pepin % (Auto) 7.4 Eos % (Auto) 0.2 Baso % (Auto) 0.9 Lymph # (Auto) 2.0 Pepin # (Auto) 0.3 Eos # (Auto) 0.0 Baso # (Auto) 0.0 Abs Immat Gran (auto) 0.02 Absolute Neuts (auto) 2.2 Absolute Nucleated RBC 0.000 Nucleated RBC % (auto) 0.0 PT INR Anion Gap 17 Estim Creat Clear Calc 63.3 Estimated GFR > 60 Random Glucose 76 Calcium 8.7 Magnesium Iron TIBC % Saturation Unsat Iron Binding Total Bilirubin 1.2 H AST 18 ALT 8 Alkaline Phosphatase 89 Ammonia Total Protein 5.7 L Albumin 2.9 L Vitamin B12 Folate Stool Occult Blood Blood Type Antibody Screen Crossmatch Assessment and Plan (1) Alcohol withdrawal: Status: Acute Plan 63F PMH etoh dependence, htn, copd, gerd, presented with ams, weakness acute metabolic encephalopathy multifactorial check ct head, UA, ucx acute anemia etiology unclear trasnfused, hgb responded appropriately plan for scope 04/26/23 moderate protein calorie malnutrition with unintentional weight loss age appropriate cancer screening acute hypokalemia replace and monitor etoh dependence with withdrawal pheonabarb copd stable gerd ppi dvt prophyalxis - mechancial due to possible bleed full code reason for continued hospitalization:plan for inpatient scope, ams Quality Stroke Does the patient have a stroke diagnosis?: No VTE Prior VTE?: No VTE Risk Level:: Medical - moderate - high VTE Device Contraindication: N/A - Device Ordered VTE Drug Contraindication: Treatment Not Indicated
--- NOTE | 2023-04-25 10:52 | MHC.CLN ---
NUTRITION CURRENTLY NPO. UPPER ENDOSCOPY AND COLONOSCOPY SCHEDULED FOR 04/26. PATIENT WITH CHRONIC DIARRHEA AND ACUTE ANEMIA. 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 DISLIKES ENSURE AND BOOST SUPPLEMENTS. FOLLOW FOR DIET ADVANCEMENT AND INTAKE.
[2023-04-25 11:05] LABS: Appearance Urine Clear; Color Urine Dark Yellow; Glucose Urine UA Negative (Negative); Leukocyte Esterase Urine Negative (Negative); Nitrite Urine Negative (Negative); PH 7.5 (5.0-9.0); Specific Gravity - Urine >= 1.030 (1.005-1.025); Urine Blood Negative (Negative); Urine Ketones Trace mg/dL (Negative); Urine Protein Negative (Neg-Trace)
[2023-04-25 11:19] LABS: Amphetamine Screen Urine Not Detected (Not Detect); Barbiturates, Urine POSITIVE (Not Detect); Benzodiazepines Screen Urine Not Detected (Not Detect); Cannabinoid Screen Urine POSITIVE (Not Detect); Cocaine Screen Urine Not Detected (Not Detect); Fentanyl, urine Not Detected (Not Detect); Opiate Screen Urine Not Detected (Not Detect); Phencyclidine Screen Urine Not Detected (Not Detect)
[2023-04-25 15:29] LABS: Anion Gap 17 (12-20); Blood Urea Nitrogen 14 mg/dL (9-16); Calcium 8.5 mg/dL (8.4-10.2); Carbon Dioxide 24 mmol/L (22-29); Chloride 97 mmol/L (96-108); Creatinine Clr Calc Pharmacy 58.1; Estimated Glomerular Filt Rate > 60; Glucose Random 97 mg/dL (60-115); Potassium 4.5 mmol/L (3.3-5.1); Sodium 133 mmol/L (135-145)
[2023-04-25] MEDS: PEG 3350/Na Sulf,Bicarb,Cl/KCL 4,000 ML SOLN.RECON 4000 ML PO (18:32)
[2023-04-26] VITALS (9 sets, daily range): BP systolic 128–157; BP diastolic 62–90; PULSE 80–94; RESP 14–20; TEMP 36.2–37.3; O2SAT 95–100
--- NOTE | 2023-04-26 04:59 | PC.NURSE ---
pt drink the solution about 1/3 and refused to finish. this nurse highly encouraged to take but couldn't finish. pt moved bowel twice with brown color. incontinent both time and bedside commode to use. cont. monitor.
[2023-04-26 06:09] LABS: Anion Gap 17 (12-20); Blood Urea Nitrogen 11 mg/dL (9-16); Calcium 8.7 mg/dL (8.4-10.2); Carbon Dioxide 24 mmol/L (22-29); Chloride 97 mmol/L (96-108); Creatinine Clr Calc Pharmacy 66.3; Estimated Glomerular Filt Rate > 60; Glucose Fasting 96 mg/dL (60-99); Potassium 3.8 mmol/L (3.3-5.1); Sodium 134 mmol/L (135-145)
[2023-04-26 06:12] LABS: Hematocrit 29.7 % (37.0-47.0); Hemoglobin 10.2 g/dl (12.0-16.0); Mean Corpuscular HGB Conc 34.3 g/dl (31.0-35.0); Mean Corpuscular Hemoglobin 33.1 pg (27.0-33.0); Mean Corpuscular Volume 96.4 fL (80.0-98.0); Mean Platelet Volume 10.9 fL (9.4-12.3); Platelet Count 138 X10*3/uL (160-400); Red Blood Count 3.08 X10*6/uL (4.20-5.50); White Blood Count 4.8 X10*3/uL (4.8-10.8)
[2023-04-26] MEDS: 0.9 % Sodium Chloride Flush 3 ML SYRINGE IVFLUSH ×3 (08:04→20:20)
[2023-04-26] MEDS: Folic Acid 1 MG in 0.9 % Sodium Chloride 50 ML 100.4 MG IV (08:04)
[2023-04-26] MEDS: Albuterol/Iprat 2.5/0.5MG 3 ML AMPUL.NEB INHALE ×2 (08:05→19:35)
[2023-04-26] MEDS: Thiamine HCL 100 MG in 0.9 % Sodium Chloride 100 ML 202 MG IV (08:40)
[2023-04-26] MEDS: PHENobarbitaL 30 MG TABLET PO ×2 (08:48→20:55)
--- NOTE | 2023-04-26 10:20 | P.PNIM_ITS ---
Subjective Subjective Date of Service: 04/26/23 Interval History: did not take prep Physical Exam 2 Vital Signs: Vital Signs: Last Vital Signs Temp 97.3 F 04/26/23 07:15 Pulse 86 04/26/23 08:07 Resp 16 04/26/23 08:07 BP 157/70 H 04/26/23 07:15 Pulse Ox 99 04/26/23 07:15 O2 Del Method Room Air 04/26/23 07:15 BMI result Body Mass Index 17.2 General: AO X 1, no acute distress Resp: CTA bilateral, no accessory muscles used CVS: S1,S2,RRR GI: soft, non tender, non distended Neuro: motor grossly intact, alert Objective Data Active Medications Acetaminophen (Acetaminophen 325 Mg Tablet) 650 mg PO Q6H PRN PRN Reason: Pain, Mild (Pain Scale 1-3) Albuterol/Ipratropium (Albuterol/Iprat 2.5/0.5mg 3 Ml Ampul.Neb) 3 ml INHALE RQ4H WHILE AWAKE [facility] Last Admin: 04/26/23 08:05 Dose: 3 ml Documented By: MAGALI Thiamine HCl 100 mg/ Sodium (Chloride) 101 mls @ 202 mls/hr IV DAILY [facility] Last Infusion: 04/26/23 09:11 Dose: Infused Documented By: VENKAT Folic Acid 1 mg/ Sodium (Chloride) 50.2 mls @ 100.4 mls/hr IV DAILY [facility] Last Infusion: 04/26/23 08:50 Dose: Infused Documented By: VENKAT Melatonin (Melatonin 3 Mg Tablet) 6 mg PO BEDTIME PRN PRN Reason: Insomnia Ondansetron HCl (Ondansetron Hcl 4 Mg/2 Ml Vial) 4 mg IVPUSH Q8H PRN PRN Reason: Nausea and Vomiting Pharmacy Consult (Consult Rx Etoh Phenob Im/Po) 1 each MISCELLANE ONCE PRN; Protocol PRN Reason: Consult order Phenobarbital (Phenobarbital 30 Mg Tablet) 30 mg PO BID [facility]; Protocol Stop: 04/26/23 21:01 Last Admin: 04/26/23 08:48 Dose: 30 mg Documented By: VENKAT Phenobarbital (Phenobarbital 15 Mg Tablet) 15 mg PO BID [facility]; Protocol Stop: 04/28/23 21:01 Phenobarbital (Phenobarbital 15 Mg Tablet) 15 mg PO DAILY [facility]; Protocol Stop: 04/30/23 09:01 Sodium Chloride (0.9 % Sodium Chloride Flush 3 Ml Syringe) 3 ml IVFLUSH QSHIFT [facility] Last Admin: 04/26/23 08:04 Dose: 3 ml Documented By: VENKAT Labs 04/26/23 05:02 04/26/23 05:02 Labs: Laboratory Results - last 24 hr 04/25/23 04/25/23 04/26/23 10:54 14:29 05:02 MCV 96.4 MCH 33.1 H MCHC 34.3 RDW 15.0 Plt Count 138 L MPV 10.9 Absolute Nucleated RBC 0.000 Nucleated RBC % (auto) 0.0 Anion Gap 17 17 Estim Creat Clear Calc 58.1 66.3 Estimated GFR > 60 > 60 Random Glucose 97 Fasting Glucose 96 Calcium 8.5 8.7 Urine Color Dark Yellow Urine Appearance Clear Urine pH 7.5 Ur Specific [place] >= 1.030 H Urine Protein Negative Urine Glucose (UA) Negative Urine Ketones Trace Urine Blood Negative Urine Nitrite Negative Ur Leukocyte Esterase Negative Urine Opiates Screen Not Detected Urine Fentanyl Screen Not Detected Ur Barbiturates Screen POSITIVE H Ur Phencyclidine Scrn Not Detected Ur Amphetamines Screen Not Detected U Benzodiazepines Scrn Not Detected Urine Cocaine Screen Not Detected U Marijuana (THC) Screen POSITIVE H Assessment and Plan (1) Alcohol withdrawal: Status: Acute Plan 63F PMH etoh dependence, htn, copd, gerd, presented with ams, weakness acute metabolic encephalopathy likely in background of progressive dementia dementia multifactorial etoh, vascular ua negative acute anemia etiology unclear trasnfused, hgb responded appropriately plan for scope 04/26/23 (didnt prep, ?egd only) moderate protein calorie malnutrition with unintentional weight loss age appropriate cancer screening acute hypokalemia replaced etoh dependence with withdrawal phenobarb copd stable gerd ppi dvt prophyalxis - mechanical due to possible bleed full code reason for continued hospitalization:plan for inpatient scope Quality Stroke Does the patient have a stroke diagnosis?: No VTE Prior VTE?: No VTE Risk Level:: Medical - moderate - high VTE Device Contraindication: N/A - Device Ordered VTE Drug Contraindication: Treatment Not Indicated
[2023-04-26] MEDS: Sodium Phosphate,Mono-Dibasic 133 ML ENEMA PR (12:55)
--- NOTE | 2023-04-26 14:13 | P.CONAN_ITS ---
HPI - Anesthesia Eval Consult details Narrative: 63 F for EGD and colonoscopy Anemia , metabolic encephalopathy , COPD , EtOH abuse [facility] Active Problems Active Problems: All Active Problems (Updated 04/24/23 @ 16:48 by Lili Munoz MD) Acute anemia (Acute) Alcohol withdrawal (Acute) Mental status alteration (Acute) Protein calorie malnutrition (Acute) Unintentional weight loss (Acute) COPD (chronic obstructive pulmonary disease) (Acute) Low magnesium level (Acute) Normal physical exam (Acute) Vitamin D deficiency (Acute) Arthritis (Acute) Anemia (Acute) Hypomagnesemia (Acute) Seasonal allergies (Acute) Chronic GERD (Acute) Asthma, mild intermittent, well-controlled (Acute) Abnormal urinalysis (Acute) Elevated bilirubin (Acute) Hypokalemia (Acute) Mixed anxiety and depressive disorder (Acute) Tobacco dependence due to cigarettes (Acute) Alcohol dependence (Acute) Multiple nodules of lung (Acute) Abnormal physical evaluation (Acute) Screening for cervical cancer (Acute) Peripheral neuropathy (Acute) Diarrhea (Acute) Hypertension, essential (Acute) Well adult exam (Acute) Past Medical History Medical History Right arm fracture Peripheral neuropathy Multiple nodules of lung Weakness of left side of body Chronic back pain Arthritis COPD (chronic obstructive pulmonary disease) Depression Anxiety Family History Family History Mother No problems noted. Father Lung cancer Family history of problems with anesthesia: No Surgical History Surgical History Hx of colonoscopy History of hip surgery Previous back surgery H/O: hysterectomy History of Problems with Anesthesia: No Social History Household Members: Friend(s) Housing: Other Housing Other:: trailer Do you presently have visiting nurse or other home services: No Alcohol intake: current Alcohol intake frequency: 3 or more drinks per day Alcohol type: hard liquor Patient Tobacco Use Status: Current everyday Tobacco user Tobacco use type: Cigarette Cigarettes Per Day: 5 Years Smoked: 40 e-Cigarette/Vaping Use: Never Used Second Hand Smoke Exposure: Yes service: No Current occupational status: unemployed Cognitive needs: Yes (walker, wheelchair) Hearing needs: No Vision needs: Yes (glasses) Meds Allergies Allergy/AdvReac Type Severity Reaction Status Date / Time Sulfa (Sulfonamide Allergy Intermediate Redness of Verified 04/16/23 14:07 Antibiotics) Skin rash Active Medications: Current Medications Acetaminophen (Acetaminophen 325 Mg Tablet) 650 mg PO Q6H PRN PRN Reason: Pain, Mild (Pain Scale 1-3) Albuterol/Ipratropium (Albuterol/Iprat 2.5/0.5mg 3 Ml Ampul.Neb) 3 ml INHALE RQ4H WHILE AWAKE [facility] Last Admin: 04/26/23 11:45 Dose: Not Given Thiamine HCl 100 mg/ Sodium (Chloride) 101 mls @ 202 mls/hr IV DAILY [facility] Last Infusion: 04/26/23 09:11 Dose: Infused Folic Acid 1 mg/ Sodium (Chloride) 50.2 mls @ 100.4 mls/hr IV DAILY [facility] Last Infusion: 04/26/23 08:50 Dose: Infused Melatonin (Melatonin 3 Mg Tablet) 6 mg PO BEDTIME PRN PRN Reason: Insomnia Ondansetron HCl (Ondansetron Hcl 4 Mg/2 Ml Vial) 4 mg IVPUSH Q8H PRN PRN Reason: Nausea and Vomiting Pharmacy Consult (Consult Rx Etoh Phenob Im/Po) 1 each MISCELLANE ONCE PRN; Protocol PRN Reason: Consult order Phenobarbital (Phenobarbital 30 Mg Tablet) 30 mg PO BID [facility]; Protocol Stop: 04/26/23 21:01 Last Admin: 04/26/23 08:48 Dose: 30 mg Phenobarbital (Phenobarbital 15 Mg Tablet) 15 mg PO BID [facility]; Protocol Stop: 04/28/23 21:01 Phenobarbital (Phenobarbital 15 Mg Tablet) 15 mg PO DAILY [facility]; Protocol Stop: 04/30/23 09:01 Sodium Chloride (0.9 % Sodium Chloride Flush 3 Ml Syringe) 3 ml IVFLUSH QSHIFT [facility] Last Admin: 04/26/23 08:04 Dose: 3 ml Home Medications Medication Instructions Recorded Confirmed Last Taken Type albuterol sulfate 90 mcg/actuation 2 puff PO QID PRN Shortness Of 04/24/23 04/24/23 Unknown History aerosol inhaler (Ventolin HFA) Breath Or Wheezing diclofenac sodium 1 % topical gel 2 g topical QID PRN Pain 04/24/23 04/24/23 Unknown History (Voltaren Arthritis Pain) Exam Exam Date and Time: April 26, 2023 1413 Height,Weight and Vital Signs: Height 5 ft 4 in Weight 45.5 kg Last Vital Signs Temp 99.2 F 04/26/23 14:08 Pulse 82 04/26/23 14:08 Resp 16 04/26/23 14:08 BP 140/85 H 04/26/23 14:08 Pulse Ox 98 04/26/23 14:08 O2 Del Method Room Air 04/26/23 14:08 Pertinent Lab Results Pertinent Lab Results: Laboratory Tests 04/24/23 04/24/23 04/24/23 13:13 14:43 15:45 WBC 5.0 RBC 2.59 L D Hgb 8.8 L D Hct 25.4 L D MCV 98.1 H MCH 34.0 H MCHC 34.6 RDW 14.1 Plt Count 204 D MPV 10.1 Immature Gran % (Auto) 0.4 Neut % (Auto) 55.3 Lymph % (Auto) 36.4 [place] % (Auto) 7.3 Eos % (Auto) 0.2 Baso % (Auto) 0.4 Lymph # (Auto) 1.8 [place] # (Auto) 0.4 Eos # (Auto) 0.0 Baso # (Auto) 0.0 Abs Immat Gran (auto) 0.02 Absolute Neuts (auto) 2.7 Absolute Nucleated RBC 0.000 Nucleated RBC % (auto) 0.0 PT INR Sodium 136 Potassium 4.0 Chloride 94 L Carbon Dioxide 29 Anion Gap 17 BUN 14 Creatinine 0.67 Estim Creat Clear Calc 57.0 Estimated GFR > 60 Random Glucose 106 Fasting Glucose Calcium 9.3 Magnesium 1.0 L* Iron TIBC % Saturation Unsat Iron Binding Total Bilirubin 0.8 AST 20 ALT 9 Alkaline Phosphatase 98 Ammonia Total Protein 6.0 L Albumin 3.1 L Vitamin B12 Folate Urine Color Urine Appearance Urine pH Ur Specific [place] Urine Protein Urine Glucose (UA) Urine Ketones Urine Blood Urine Nitrite Ur Leukocyte Esterase Stool Occult Blood NEGATIVE Urine Opiates Screen Urine Fentanyl Screen Ur Barbiturates Screen Ur Phencyclidine Scrn Ur Amphetamines Screen U Benzodiazepines Scrn Urine Cocaine Screen U Marijuana (THC) Screen Blood Type AB Positive Antibody Screen NEGATIVE Crossmatch See Detail 04/24/23 04/24/23 04/24/23 16:02 17:34 21:59 WBC 4.7 L RBC 2.42 L Hgb 8.5 L Hct 23.7 L MCV 97.9 MCH 35.1 H MCHC 35.9 H RDW 13.8 Plt Count 196 MPV 10.0 Immature Gran % (Auto) Neut % (Auto) Lymph % (Auto) [place] % (Auto) Eos % (Auto) Baso % (Auto) Lymph # (Auto) [place] # (Auto) Eos # (Auto) Baso # (Auto) Abs Immat Gran (auto) Absolute Neuts (auto) Absolute Nucleated RBC 0.000 Nucleated RBC % (auto) 0.0 PT 10.5 L INR 0.9 Sodium 135 Potassium 3.7 Chloride 94 L Carbon Dioxide 28 Anion Gap 17 BUN 14 Creatinine 0.64 Estim Creat Clear Calc 59.7 Estimated GFR > 60 Random Glucose 100 Fasting Glucose Calcium 9.1 Magnesium 2.0 Iron 200 H TIBC 225 L % Saturation 89 H Unsat Iron Binding < 25 Total Bilirubin AST ALT Alkaline Phosphatase Ammonia 25 Total Protein Albumin Vitamin B12 501 Folate 7.4 Urine Color Urine Appearance Urine pH Ur Specific [place] Urine Protein Urine Glucose (UA) Urine Ketones Urine Blood Urine Nitrite Ur Leukocyte Esterase Stool Occult Blood Urine Opiates Screen Urine Fentanyl Screen Ur Barbiturates Screen Ur Phencyclidine Scrn Ur Amphetamines Screen U Benzodiazepines Scrn Urine Cocaine Screen U Marijuana (THC) Screen Blood Type Antibody Screen Crossmatch 04/25/23 04/25/23 04/25/23 05:01 10:54 14:29 WBC 4.6 L RBC 3.24 L D Hgb 10.8 L D Hct 30.8 L D MCV 95.1 MCH 33.3 H MCHC 35.1 H RDW 14.7 Plt Count 173 MPV 10.6 Immature Gran % (Auto) 0.4 Neut % (Auto) 47.6 Lymph % (Auto) 43.5 H [place] % (Auto) 7.4 Eos % (Auto) 0.2 Baso % (Auto) 0.9 Lymph # (Auto) 2.0 [place] # (Auto) 0.3 Eos # (Auto) 0.0 Baso # (Auto) 0.0 Abs Immat Gran (auto) 0.02 Absolute Neuts (auto) 2.2 Absolute Nucleated RBC 0.000 Nucleated RBC % (auto) 0.0 PT INR Sodium 135 133 L Potassium 2.9 L D 4.5 D Chloride 96 97 Carbon Dioxide 25 24 Anion Gap 17 17 BUN 14 14 Creatinine 0.67 0.73 Estim Creat Clear Calc 63.3 58.1 Estimated GFR > 60 > 60 Random Glucose 76 97 Fasting Glucose Calcium 8.7 8.5 Magnesium Iron TIBC % Saturation Unsat Iron Binding Total Bilirubin 1.2 H AST 18 ALT 8 Alkaline Phosphatase 89 Ammonia Total Protein 5.7 L Albumin 2.9 L Vitamin B12 Folate Urine Color Dark Yellow Urine Appearance Clear Urine pH 7.5 Ur Specific [place] >= 1.030 H Urine Protein Negative Urine Glucose (UA) Negative Urine Ketones Trace Urine Blood Negative Urine Nitrite Negative Ur Leukocyte Esterase Negative Stool Occult Blood Urine Opiates Screen Not Detected Urine Fentanyl Screen Not Detected Ur Barbiturates Screen POSITIVE H Ur Phencyclidine Scrn Not Detected Ur Amphetamines Screen Not Detected U Benzodiazepines Scrn Not Detected Urine Cocaine Screen Not Detected U Marijuana (THC) Screen POSITIVE H Blood Type Antibody Screen Crossmatch 04/26/23 05:02 WBC 4.8 RBC 3.08 L Hgb 10.2 L Hct 29.7 L MCV 96.4 MCH 33.1 H MCHC 34.3 RDW 15.0 Plt Count 138 L MPV 10.9 Immature Gran % (Auto) Neut % (Auto) Lymph % (Auto) [place] % (Auto) Eos % (Auto) Baso % (Auto) Lymph # (Auto) [place] # (Auto) Eos # (Auto) Baso # (Auto) Abs Immat Gran (auto) Absolute Neuts (auto) Absolute Nucleated RBC 0.000 Nucleated RBC % (auto) 0.0 PT INR Sodium 134 L Potassium 3.8 Chloride 97 Carbon Dioxide 24 Anion Gap 17 BUN 11 Creatinine 0.64 Estim Creat Clear Calc 66.3 Estimated GFR > 60 Random Glucose Fasting Glucose 96 Calcium 8.7 Magnesium Iron TIBC % Saturation Unsat Iron Binding Total Bilirubin AST ALT Alkaline Phosphatase Ammonia Total Protein Albumin Vitamin B12 Folate Urine Color Urine Appearance Urine pH Ur Specific [place] Urine Protein Urine Glucose (UA) Urine Ketones Urine Blood Urine Nitrite Ur Leukocyte Esterase Stool Occult Blood Urine Opiates Screen Urine Fentanyl Screen Ur Barbiturates Screen Ur Phencyclidine Scrn Ur Amphetamines Screen U Benzodiazepines Scrn Urine Cocaine Screen U Marijuana (THC) Screen Blood Type Antibody Screen Crossmatch Airway Mallampati Class: III Loose/Missing/Broken Teeth: Yes Assessment and Plan Assessment Anesthesia Assessment: Anesthesia Plan Discussed Final Anesthetic Review Family History of Problems with Anesthesia: No History of Problems with Anesthesia: No NPO: Yes ASA Class: III and Emergency Final Preanesthetic Review: Meds/Allgs Chart Reviewed, Consent Obtained/Reviewed and Anes Risks/Benef Reviewed Patient Risk: High Procedure Risk: Intermediate Anesthetic Plan Anesthetic Plan: MAC: and Agree w/ Assess. and Plan Disposition: Standard PACU
[2023-04-26 14:33] LABS: Magnesium 1.4 mg/dL (1.6-2.6)
--- NOTE | 2023-04-26 15:08 | PC.NURSE ---
Care transitioned to [facility] (PACU).
--- NOTE | 2023-04-26 15:57 | MHC.SHP ---
Pre-Procedural Eval Section A Date of Service: 04/26/23 The patient is an INPATIENT: Yes The History & Physical has been completed within 30 days and I have reviewed it.: Yes Section B Chief Complaint: Anemia, diarrhea, unintentional weight loss Allergies: Allergies Allergy/AdvReac Type Severity Reaction Status Date / Time Sulfa (Sulfonamide Allergy Intermediate Redness of Verified 04/16/23 14:07 Antibiotics) Skin rash Plan Diagnosis/Plan: Unchanged I have reviewed the history and physical and performed a pertinent physical examination on my patient. No changes have occurred unless specified. Time Spent With Patient Time: Total time managing care of this patient today ____ minutes.
--- NOTE | 2023-04-26 15:59 | P.OP_ITS ---
Operative Note Operative Note Date of Service: 04/26/23 Narrative: Procedure:?Esophagogastroduodenoscopy and colonoscopy Endoscopist:?Geno Cantu MD Indication:?Anemia, unintentional weight loss, diarrhea, abnormal CT scan Anesthesia Provider:?Betty Toney CRNA Anesthesia Type:?MAC Instrument:?Olympus GIF-H190, PCF-H190L EGD Procedure:?? The procedure, indications, preparation and potential complications were reviewed with the patient's HCP/daughter Tammy who indicated understanding and gave informed consent over the phone to proceed. A physical exam was performed. The endoscope was introduced through the mouth, and advanced to the second part of duodenum. The mucosa was carefully examined on slow withdrawal of the endoscope. There were no immediate complications. Patient tolerated the procedure well. EGD Findings:? * Esophagus:?Normal mucosa was noted in the esophagus. There was a non- obstructing Schatzki's ring at the GE junction. The Z line was at 35 cm. * Stomach:? Mild erythema and edema of antrum was noted without any ulcers. Remaining gastric mucosa was normal. Retroflexion performed in the fundus. Cold forceps biopsies were taken from the antrum as well as randomly from the stomach. * Duodenum:? Normal duodenal mucosa noted to the extent examined. Cold forceps biopsies were taken from the duodenal bulb and second portion of the duodenum to r/o celiac sprue. Colonoscopy Procedure:? The patient was then turned for the colonoscopy. A digital rectal exam was performed which was abnormal for external hemorrhoids.? A distal attachment cap was affixed to the tip of the scope and the colonoscope was then inserted through the anus and advanced through the colon to the cecum at 75 cm. Appendiceal orifice and ileocecal valve were identified. Mucosa was carefully examined under high definition white light as the instrument was slowly withdrawn in a retrograde panoramic fashion. Retroflexion was performed in rectum. The procedure was not difficult. There were no immediate obvious complications. The quality of the prep was BBPS: 2+2+2 = adequate Withdrawal time: 8 minutes Limitations: No limitation. Findings: Mucosa: Normal mucosa to cecum. No active bleeding, AVMs, ulcers or inflammation noted. Cold forceps biopsies were taken from R and L side of the colon to r/o microscopic colitis. Protruding lesions: * 2 sessile polyps of size 3-5 mm was noted in cecum. Cold snare polypectomy was performed. The polyps were completely removed and retrieved. * Large internal hemorrhoids with stigmata of recent bleeding. Impression: 1. Non-obstructing Schatzki's ring 2. Antral gastritis (biopsy) 3. Normal duodenum (biopsy) 4. Normal colon mucosa (biopsy) 5. 2 polyps removed from the cecum 6. External and internal hemorrhoids Recommendations:?? * Await pathology results. * Cont PPI as PO. * No active bleeding noted on the endoscopic evaluation today. * Recheck iron studies as outpatient (were checked within an hour of PRBC transfusion inpatient) and if the anemia is NON-iron deficiency, would benefit from hematology evaluation * Evaluation and work up of AMS per primary team * Repeat colonoscopy for asymptomatic colorectal screening in 5 years due to prep quality, if pt in good health
[2023-04-26] MEDS: Magnesium Sulfate/H2O 2 GM/50 ML PIGGYBACK IV (16:40)
[2023-04-26] MEDS: Lactated Ringers 1,000 ML 125 ML IVCONT (20:15)
--- NOTE | 2023-04-26 23:52 | PC.NURSE ---
pt's family is concerned about npo status at this time bc she's been npo 2 days and no fluid is running. dr. Mello notified. received new ordered LR 125 mL/hr. will cont to monitor any changes.
[2023-04-27] VITALS (7 sets, daily range): BP systolic 123–142; BP diastolic 63–84; PULSE 79–97; RESP 16–17; TEMP 36.2–37.1; O2SAT 97–98
[2023-04-27 06:19] LABS: Hematocrit 27.5 % (37.0-47.0); Hemoglobin 9.6 g/dl (12.0-16.0); Mean Corpuscular HGB Conc 34.9 g/dl (31.0-35.0); Mean Corpuscular Hemoglobin 33.7 pg (27.0-33.0); Mean Corpuscular Volume 96.5 fL (80.0-98.0); Mean Platelet Volume 10.9 fL (9.4-12.3); Platelet Count 163 X10*3/uL (160-400); Red Blood Count 2.85 X10*6/uL (4.20-5.50); Red Cell Distribution Width 14.8 % (11.0-16.0); White Blood Count 6.3 X10*3/uL (4.8-10.8)
[2023-04-27 06:37] LABS: Anion Gap 14 (12-20); Blood Urea Nitrogen 8 mg/dL (9-16); Calcium 8.3 mg/dL (8.4-10.2); Carbon Dioxide 24 mmol/L (22-29); Chloride 99 mmol/L (96-108); Creatinine Clr Calc Pharmacy 71.9; Estimated Glomerular Filt Rate > 60; Glucose Fasting 73 mg/dL (60-99); Potassium 3.4 mmol/L (3.3-5.1); Sodium 134 mmol/L (135-145)
[2023-04-27] MEDS: 0.9 % Sodium Chloride Flush 3 ML SYRINGE IVFLUSH (08:29)
[2023-04-27] MEDS: PHENobarbitaL 15 MG TABLET PO (08:29)
[2023-04-27] MEDS: Acetaminophen 325 MG TABLET 650 MG PO (08:29)
[2023-04-27] MEDS: Thiamine HCL 100 MG in 0.9 % Sodium Chloride 100 ML 202 MG IV (08:30)
--- NOTE | 2023-04-27 09:24 | MHC.CLN ---
F/U DIET ADVANCED TO REGULAR TODAY. ADDING MAGIC CUP BID TO PROMOTE NUTRITIONAL INTAKE. SUPPLEMENT PROVIDES 580 KCALS, 18 G PROTEIN. DISLIKES ENSURE AND BOOST SUPPLEMENTS. FOLLOW FOR DIET TOLERANCE AND INTAKE.
[2023-04-27] MEDS: Folic Acid 1 MG in 0.9 % Sodium Chloride 50 ML 100.4 MG IV (09:27)
--- NOTE | 2023-04-27 10:17 | HO.PM.IMPN ---
Subjective Subjective Date of Service: 04/27/23 Interval History: no complaints Physical Exam Vital Signs: Vital Signs: Last Vital Signs Temp 97.4 F 04/27/23 08:00 Pulse 82 04/27/23 09:06 Resp 16 04/27/23 08:00 BP 142/84 H 04/27/23 09:06 Pulse Ox 97 04/27/23 09:06 O2 Del Method Room Air 04/27/23 08:00 O2 Flow Rate 6 04/26/23 16:04 BMI result Body Mass Index 17.2 General: AO X 3, no acute distress Resp: CTA bilateral, no accessory muscles used CVS: S1,S2,RRR GI: soft, non tender, non distended Neuro: motor grossly intact, alert Objective Data Active Medications Acetaminophen (Acetaminophen 325 Mg Tablet) 650 mg PO Q6H PRN PRN Reason: Pain, Mild (Pain Scale 1-3) Last Admin: 04/27/23 08:29 Dose: 650 mg Documented By: ZION Albuterol/Ipratropium (Albuterol/Iprat 2.5/0.5mg 3 Ml Ampul.Neb) 3 ml INHALE RQ4H WHILE AWAKE [facility] Last Admin: 04/27/23 07:46 Dose: Not Given Documented By: MAGALI Non-Admin Reason: Patient Asleep Thiamine HCl 100 mg/ Sodium (Chloride) 101 mls @ 202 mls/hr IV DAILY [facility] Last Infusion: 04/27/23 09:10 Dose: Infused Documented By: ZION Folic Acid 1 mg/ Sodium (Chloride) 50.2 mls @ 100.4 mls/hr IV DAILY [facility] Last Infusion: 04/27/23 10:08 Dose: Infused Documented By: ZION Melatonin (Melatonin 3 Mg Tablet) 6 mg PO BEDTIME PRN PRN Reason: Insomnia Ondansetron HCl (Ondansetron Hcl 4 Mg/2 Ml Vial) 4 mg IVPUSH Q8H PRN PRN Reason: Nausea and Vomiting Pharmacy Consult (Consult Rx Etoh Phenob Im/Po) 1 each MISCELLANE ONCE PRN; Protocol PRN Reason: Consult order Phenobarbital (Phenobarbital 15 Mg Tablet) 15 mg PO BID [facility]; Protocol Stop: 04/28/23 21:01 Last Admin: 04/27/23 08:29 Dose: 15 mg Documented By: ZION Phenobarbital (Phenobarbital 15 Mg Tablet) 15 mg PO DAILY [facility]; Protocol Stop: 04/30/23 09:01 Sodium Chloride (0.9 % Sodium Chloride Flush 3 Ml Syringe) 3 ml IVFLUSH QSHIFT [facility] Last Admin: 04/27/23 08:29 Dose: 3 ml Documented By: ZION Labs 04/27/23 05:25 04/27/23 05:25 Labs: Laboratory Results - last 24 hr 04/26/23 04/27/23 13:45 05:25 MCV 96.5 MCH 33.7 H MCHC 34.9 RDW 14.8 Plt Count 163 MPV 10.9 Absolute Nucleated RBC 0.000 Nucleated RBC % (auto) 0.0 Anion Gap 14 Estim Creat Clear Calc 71.9 Estimated GFR > 60 Fasting Glucose 73 Calcium 8.3 L Magnesium 1.4 L* Assessment and Plan (1) Alcohol withdrawal: Status: Acute Plan 63F PMH etoh dependence, htn, copd, gerd, presented with ams, weakness acute metabolic encephalopathy likely in background of progressive dementia dementia multifactorial, improved etoh, vascular ua negative acute anemia etiology unclear, possible chronic bloo dloss from internal hemmeroids, gastritis, repeat iron studies outpatient trasnfused, hgb responded appropriately moderate protein calorie malnutrition with unintentional weight loss age appropriate cancer screening acute hypokalemia replaced etoh dependence with withdrawal phenobarb copd stable gerd ppi dvt prophyalxis - mechanical due to possible bleed full code reason for continued hospitalization:safe dispo Quality Stroke Does the patient have a stroke diagnosis?: No VTE Prior VTE?: No VTE Risk Level:: Medical - moderate - high VTE Device Contraindication: N/A - Device Ordered VTE Drug Contraindication: Treatment Not Indicated
--- NOTE | 2023-04-27 11:05 | MHC.CM.PN ---
Addendum entered by Ai Warren 04/27/23 11:34: [facility] HAS ACCEPTED REFERRAL AND WILL PROVIDE SOC WITHIN 48 HOURS Original Note: PER MD ROUNDS, PT MEDICALLY CLEARED TO DC PT RECOMMENDING STR CM MET WITH PT TO DISCUSS DC PLANS PT REPORTS SHE IS UNWILLING TO CONSIDER STR SHE REPORTS SHE HAS HELP AT HOME AND IS AGREEABLE TO [facility] SHE DID GIVE CM PERMISSION TO SPEAK TO HER DAUGHTER VIA T/C CM CALLED PTS DAUGHTER, VELMA [phone] SHE CONFIRMS PT DOES HAVE HELP AT HOME, HER BF AND SON LIVE THERE AND A TEXTILE PIN WORKER COMES IN DAILY SHE UNDERSTANDS THE PT HAS DECLINED STR AND IS ALSO AGREEABLE TO [facility] SERVICES BEING ARRANGED CM DID DISCUSS CONCERNS WITH PTS ABILITY TO GO HOME VIA PRIVATE TRANSPORT CM ALSO EXPLAINED THE PT DECLINED CM OFFER OF BLS TRANSPORT VELMA REPORTS SHE WILL BE HERE AT 1300 HOURS AND WILL ENSURE HER MOTHER AGREES TO BLS BLS TRANSPORT ARRANGED FOR 1400 HOURS VIA TED [facility] REFERRALS OUT
--- NOTE | 2023-04-27 11:07 | PM.DS ---
DS: Providers Provider Date of Service: 04/27/23 Date of admission: 04/24/23 20:39 Primary care physician: BAL Walton Consults: 04/24/23 20:39 Consult to Gastroenterology Routine Consulting Provider: Geno Cantu Reason for consultation: Symptomatic anemia DS: Diagnosis Discharge Diagnosis (1) Alcohol withdrawal: Status: Acute DS: Summary Hospital Course Hospital Course: from initial hpi: 63-year-old female with pertinent history of alcohol use disorder with history of alcohol withdrawals, essential hypertension, COPD not on home oxygen, gastroesophageal reflux disease who presents to the emergency department for evaluation of weakness. Patient states she is here for weakness which has been ongoing for the last 1 week. Admits to drinking alcohol every day, last drink was 3 days prior to presentation. Does have a history of alcohol withdrawals. Patient is a poor historian and unable to obtain detailed history. Patient states she is drinking bowel prep for colonoscopy. Has been having diarrhea but no melena or hematemesis. Also complaints of abdominal discomfort, which is nonradiating, intermittent and without any relieving factors. No fever, chills, chest discomfort, palpitations, shortness of breath. In the emergency department, hemoglobin was found to be low and PRBC was ordered hospital course: Patient was admitted for acute metabolic encephalopathy Likely in the background of progressive dementia. Her dementia is multifactorial, likely mostly related to alcohol dependence, CT head showed microvascular disease. Her mental status improved to baseline. UA was negative. For acute anemia she received transfusion and hemoglobin responded appropriately and remained stable. Exact cause is unknown at this time, possibly chronic blood loss anemia from internal hemorrhoids and gastritis. Iron studies were done after transfusion so unreliable. This should be repeated as outpatient. She should also follow up with Gastroenterology. From moderate protein calorie malnutrition with unintentional weight loss, I suspect this is more related to alcohol use and dementia, however, she should receive age-appropriate cancer screening as outpatient. Patient had acute hypokalemia and hypomagnesemia which was replaced. Lab should be repeated as outpatient. For alcohol dependence with withdrawal she was seen phenobarbital. Her COPD was stable. For GERD she was continued on PPI. Patient noted to have significant debility recommended for short-term rehab, however, not interested at this time and will be discharged home with VNA and home PT. Time Attestation Discharge coordination time: Greater than 30 minutes Quality: Safe Use of Opioids Does Pt have an Active Cancer Diagnosis on the Problem List?: No Quality: Stroke Does the patient have a stroke diagnosis?: No Physical Exam Vital Signs: Vital Signs: Last Vital Signs Temp 97.4 F 04/27/23 08:00 Pulse 82 04/27/23 09:06 Resp 16 04/27/23 08:00 BP 142/84 H 04/27/23 09:06 Pulse Ox 97 04/27/23 09:06 O2 Del Method Room Air 04/27/23 08:00 O2 Flow Rate 6 04/26/23 16:04 BMI result Body Mass Index 17.2 General: AO X 3, no acute distress Resp: CTA bilateral, no accessory muscles used CVS: S1,S2,RRR GI: soft, non tender, non distended Neuro: motor grossly intact, alert DS: Data Data Completed and Pending Pending studies at discharge: Pending at discharge 04/26/23 15:41 Surgical [PTH] Routine Labs on day of discharge: Laboratory Results - last 24 hr 04/26/23 04/27/23 13:45 05:25 WBC 6.3 RBC 2.85 L Hgb 9.6 L Hct 27.5 L MCV 96.5 MCH 33.7 H MCHC 34.9 RDW 14.8 Plt Count 163 MPV 10.9 Absolute Nucleated RBC 0.000 Nucleated RBC % (auto) 0.0 Sodium 134 L Potassium 3.4 Chloride 99 Carbon Dioxide 24 Anion Gap 14 BUN 8 L Creatinine 0.59 Estim Creat Clear Calc 71.9 Estimated GFR > 60 Fasting Glucose 73 Calcium 8.3 L Magnesium 1.4 L* Discharge Plan Discharge Anticipated Discharge Date/Time: 04/27/23 11:02 Patient Disposition: Home Health Service Discharge Diagnosis: anemia Referrals: Nasrin Barnett FNP [Primary Care Provider] - 1 Week Nav Strauss MD [Physician] - 1 Week (dementia) Geno Cantu MD [Physician] - 1 Week Discharge Medications: Continued duloxetine 20 mg capsule,delayed release(DR/EC) 20 mg PO BID Qty: 60 1RF folic acid 400 mcg tablet 0.4 mg PO DAILY 30 Days Qty: 30 3RF omeprazole 20 mg capsule,delayed release(DR/EC) 20 mg PO DAILY Qty: 90 1RF Anoro Ellipta 62.5-25 mcg/actuation blister with device 1 inh inhalation DAILY Qty: 60 5RF valsartan 40 mg tablet 40 mg PO BID 90 Days Qty: 180 0RF Rx Instructions: hold for bp less than 100/50 recheck bp in 30-60 min and continue to hold if needed cholecalciferol (vitamin D3) 50 mcg (2,000 unit) capsule 50 mcg PO DAILY Qty: 30 2RF potassium chloride [Klor-Con 10] 10 mEq tablet extended release 10 meq PO DAILY 30 Days Qty: 30 1RF magnesium oxide 500 mg capsule 500 mg PO BID Qty: 60 1RF albuterol sulfate [Ventolin HFA] 90 mcg/actuation HFA aerosol inhaler 2 puff PO QID PRN (Reason: Shortness Of Breath Or Wheezing) diclofenac sodium [Voltaren Arthritis Pain] 1 % gel 2 g topical QID PRN (Reason: Pain) Rx Instructions: apply to right shoulder Discontinued loratadine [Allergy Relief (loratadine)] 10 mg tablet 10 mg PO DAILY Qty: 90 1RF Discharge Orders: Discharge Order (Routine); Ordered 04/27/23 Ordered By: Luis Lee Diet: no etoh Activity on Discharge: As tolerated Stand Alone Forms: Patient Portal Discharge page Other Ambulatory Orders: Basic Metabolic Panel Fasting (Routine) Timeframe: 1 Week Facility: [facility] - Location: Laboratory Ordered By: Luis Lee Complete Blood Count Auto Diff (Routine) Timeframe: 1 Week Facility: [facility] - Location: Laboratory Ordered By: Luis Lee IRON PROFILE (Routine) Timeframe: 1 Week Facility: [facility] - Location: Laboratory Ordered By: Luis Lee Magnesium (Routine) Timeframe: 1 Week Facility: [facility] - Location: Laboratory Ordered By: Luis Lee Care Plan Goals: work up anemia Health Concerns: anemia, dementia Plan of Treatment: follow up with gi, repeat labs next week, follow up with neuro, no etoh Assessment: see above
[2023-04-27] MEDS: Potassium Chloride ER 20 MEQ TAB.ER.PRT 40 MEQ PO (11:09)
--- NOTE | 2023-04-27 11:13 | P.F2F_ITS ---
Service Date Service Date: 04/27/23 Encounter Date of encounter: 04/27/23 Reasons for Services Signs and symptoms assessed: difficulty ambuialting Reason for mcfp: medication management, medication treatment and teach disease management Reason for physical therapy: home safety and mobility, therapeutic exercises and gait/transfer training Homebound: Leaving the home is medically contraindicated at this time without the asist of a device and/or another person due th the listed conditions above and below. Reason homebound: unsteady gait / fall risk Certification: Based on the above findings, I certify that this patient is confined to the home and needs intermittent mcfp care, physical therapy and/or speech therapy, or continues to need occupational therapy. The patient is under my care, and I have initiated the establishment of the plan of care. The patient will be followed by a physician who will periodically review the plan of care. Time Spent With Patient Time: Total time managing care of this patient today ____ minutes.
[2023-04-27] MEDS: Albuterol/Iprat 2.5/0.5MG 3 ML AMPUL.NEB INHALE (12:13)
--- NOTE | 2023-04-27 13:18 | HO.POSTANES ---
Post Anesthesia Evaluation Post Anesthesia Evaluation Date of Service: 04/27/23 Vital Signs: Vital Signs Temp Pulse Resp BP Pulse Ox O2 Del Method 04/27/23 12:15 79 16 04/27/23 12:00 97.3 F 97 16 138/71 97 Room Air 04/27/23 09:06 82 142/84 H 97 04/27/23 08:00 97.4 F 82 16 142/84 H 97 Room Air 04/27/23 02:53 97.1 F 90 17 123/63 97 Room Air Anesthesia: Monitored Mental Status: Awake Pain Control: Satisfactory Nausea/Vomiting: None Hydration: Adequate Anesthesia-Related Issues: No Anes. Related Issues
== END 2023-04-27 20:30 | disposition home health service (06) | DRG 241 ==
LOC: HO.ED 16:48 → HO.EDOVER 21:05 → HO.S3 23:30
PROVIDERS: Internal Medicine; Physician Assistant; Student in an Organized Health Care Education/Training Program; Admitting Provider Student in an Organized Health Care Education/Training Program; Emergency Provider Internal Medicine; PCP Nurse Practitioner Family; Visit Provider Internal Medicine
PROC: 0DB98ZX Excision of Duodenum, Via Natural or Artificial Opening Endoscopic, Diagnostic (ICD-10-PCS; principal; 2023-04-26 15:30)
DX: K29.70 Gastritis, unspecified, without bleeding (principal); G92.8 Other toxic encephalopathy; E44.0 Moderate protein-calorie malnutrition; F10.27 Alcohol dependence with alcohol-induced persisting dementia; K22.2 Esophageal obstruction; F17.210 Nicotine dependence, cigarettes, uncomplicated; D50.9 Iron deficiency anemia, unspecified; E87.6 Hypokalemia; E83.42 Hypomagnesemia; J44.9 Chronic obstructive pulmonary disease, unspecified; F10.239 Alcohol dependence with withdrawal, unspecified; K64.8 Other hemorrhoids; K64.4 Residual hemorrhoidal skin tags; K63.5 Polyp of colon; K21.9 Gastro-esophageal reflux disease without esophagitis; Z71.6 Tobacco abuse counseling; Z68.1 Body mass index [BMI] 19.9 or less, adult; Z79.899 Other long term (current) drug therapy
CPT/HCPCS: 36415; 70450; 74177; 80048; 80053; 80307; 81003; 82140; 82272; 82607; 82746; 83540; 83735; 85025; 85027; 85610; 86850; 86900; 86901; 86923; 88305; 88342; 94640; 97162; 99285; C9113; J2560; J2704; J3411; J3475; J7120; P9016; Q9967

== ENCOUNTER → 2023-04-24 12:35 | Outpatient (BNV) | payer OTHER, SELFPAY | PROVIDERS: Emergency Provider Internal Medicine; PCP Nurse Practitioner Family; Visit Provider Student in an Organized Health Care Education/Training Program | DX: F10.939 Alcohol use, unspecified with withdrawal, unspecified (principal) | CPT/HCPCS: 99222; 99232; 99233; 99239; G0180 ==

== ENCOUNTER → 2023-04-24 20:39 | Outpatient (BNV) | payer OTHER, SELFPAY | PROVIDERS: Admitting Provider Student in an Organized Health Care Education/Training Program; Emergency Provider Internal Medicine; PCP Nurse Practitioner Family; Visit Provider Internal Medicine | DX: D64.9 Anemia, unspecified (principal); K22.2 Esophageal obstruction; K52.9 Noninfective gastroenteritis and colitis, unspecified; D12.0 Benign neoplasm of cecum; K64.8 Other hemorrhoids | CPT/HCPCS: 43239; 45385; 99222 ==

== ENCOUNTER 2023-05-15 10:45 | Outpatient (REF) | payer OTHER, SELFPAY ==
[2023-05-15 15:02] LABS: Alanine Aminotransferase 8 U/L (0-31); Albumin Level 3.2 g/dL (3.5-5.0); Alkaline Phosphatase 104 U/L (39-117); Anion Gap 13 (12-20); Aspartate Amino Transferase 16 U/L (5-31); Bilirubin Total 0.3 mg/dL (0.0-1.0); Blood Urea Nitrogen 21 mg/dL (9-16); Carbon Dioxide 26 mmol/L (22-29); Chloride 109 mmol/L (96-108); Estimated Glomerular Filt Rate > 60; Glucose Random 90 mg/dL (60-115); Magnesium 1.5 mg/dL (1.6-2.6); Potassium 5.1 mmol/L (3.3-5.1); Sodium 143 mmol/L (135-145); Total Protein 6.8 g/dL (6.5-8.0)
== END 2023-05-15 10:46 | disposition home or self-care (01) ==
LOC: HO.WFDLNP 10:45
PROVIDERS: Visit Provider Nurse Practitioner Family
DX: F10.130 Alcohol abuse with withdrawal, uncomplicated (principal); G93.41 Metabolic encephalopathy
CPT/HCPCS: 80053; 83735

== ENCOUNTER → 2023-05-17 09:58 | Outpatient (BNVA) | payer OTHER, SELFPAY | PROVIDERS: PCP Nurse Practitioner Family; Visit Provider Physician Assistant ==

== ENCOUNTER 2023-06-13 12:45 | Outpatient (AMB) | payer OTHER, SELFPAY ==
[2023-06-13 12:46] VITALS: BP 108/62; PULSE 90; O2SAT 98
--- NOTE | 2023-06-13 12:46 | MHC.PC.OV ---
Vital Signs 06/13/23 12:46 Height 5 ft 4 in BMI Reason not done Patient refused/unable BP 108/62 Blood Pressure Location Lt brachial Position Sitting Pulse 90 Pulse Source Pulse Oximeter Pulse Oximetry (%) 98 Oxygen Delivery Method Room Air Intake [place] [facility] [place], alcohol withdrawal Cleaning Specialist: Present Allergies Sulfa (Sulfonamide Antibiotics) Allergy (Intermediate, Verified 05/17/23 09:59) Redness of Skin rash Medication List - Last Reviewed 06/13/23 by SANDOVAL Story albuterol sulfate 90 mcg/actuation (Ventolin HFA) 2 puffs PO QID PRN cholecalciferol (vitamin D3) 50 mcg PO DAILY diclofenac sodium 1% (Voltaren Arthritis Pain) 2 grams topical QID PRN duloxetine 20 mg PO BID folic acid 0.4 mg PO DAILY 30 days magnesium oxide 500 mg PO BID omeprazole 20 mg PO DAILY potassium chloride ER (Klor-Con) 10 mEq PO DAILY 30 days umeclidinium-vilanterol 62.5-25 mcg/actuation (Anoro Ellipta) 1 inh inhalation DAILY valsartan 40 mg PO BID 3 months Tobacco use date assessed: 03/30/23 Dental Screening Dental Screen Date: 06/13/23 Did you have a dental visit in the last 12 months?: Yes Did you have a dental problem in the last 6 months where you did not have access to dental care?: No Was dental information given to patient?: Patient has dentist HPI HPI Comments History of Present Illness Details 63-year-old female with history of alcohol use disorder with history of alcohol withdrawal, hypertension, COPD, GERD presents to the office via EMS accompanied by her boyfriend Frank and daughter andrew for hospital discharge follow-up. She was admitted to [facility] from 04/24-04/27 due to weakness and encephalopathy. She had been noted to be having diarrhea but no melena or hematemesis. There was associated abdominal discomfort. The patient had been prepping for upper and lower endoscopy but due to significant diarrhea and weakness, presented to the ER for evaluation. Labs in the ED were significant for H/H 8.8/25.4% (down from 13.5/38.7% on 03/27/23) with MCV 98.1. Iron levels were actually elevated with total iron 200, TIBC 225, 89% saturation but these were collected post transfusion. Chemistries were unremarkable except for chronic hypochloremia in severe hypo magnesium E a of 1.0 which was repleted in the ED with IV magnesium and patient was started on oral magnesium supplement. She was transfused 1 unit packed red blood cells. Patient was admitted and started on IV Protonix and kept NPO pending Gastroenterology evaluation. She was also started on phenobarbital per protocol and monitored on CIWA given concerns for alcohol withdrawal and was administered IV thiamine and folic acid. Encephalopathy was likely in the setting of alcohol use and resolved during admission. She did undergo endoscopy and colonoscopy without any obvious source of active bleeding. GI recommended continuing PPI and rechecking iron studies as outpatient. The patient was discharged with recommended home services for physical therapy and nursing. However per the daughter, the patient has refused these services and was discharged from [facility]. The patient is no longer able to stand or walk independently. Her daughter is concerned because there is no ramp or transportation. Per EMS, the patient can only stand and pivot with heavy assistance. She does have ART PSYCHOTHERAPIST services 19 hours per week. Per the patient she is no longer drinking alcohol. Daughter reports memory continues to decline. Has upcoming appt with neurology. Her appetite has increased and she is drinking ensures and has gained some weight. [facility] Medical History (Updated 06/21/23 @ 15:16 by KAYLIN Oliveros) Iron deficiency anemia Right arm fracture Peripheral neuropathy Multiple nodules of lung Weakness of left side of body Chronic back pain Arthritis COPD (chronic obstructive pulmonary disease) Depression Anxiety Surgical History Hx of colonoscopy History of hip surgery Previous back surgery H/O: hysterectomy Family History Mother No problems noted. Father Lung cancer Social History Household Members: Friend(s) Housing: Other Housing Other:: trailer Do you presently have visiting nurse or other home services: No Alcohol intake: current Alcohol intake frequency: 3 or more drinks per day Alcohol type: hard liquor Patient Tobacco Use Status: Current everyday Tobacco user Tobacco use type: Cigarette Cigarettes Per Day: 5 Years Smoked: 40 e-Cigarette/Vaping Use: Never Used Second Hand Smoke Exposure: Yes service: No Current occupational status: unemployed Cognitive needs: Yes (walker, wheelchair) Hearing needs: No Vision needs: Yes (glasses) Questionnaire PHQ-9 Over the last 2 weeks, how often have you been bothered by any of the following problems? 1. Little interest or pleasure in doing things: nearly every day 2. Feeling down, depressed, or hopeless: nearly every day 3. Trouble falling or staying asleep, or sleeping too much: nearly every day 4. Feeling tired or having little energy: nearly every day 5. Poor appetite or overeating: nearly every day 6. Feeling bad about yourself - or that you are a failure or have let yourself or your family down: not at all 7. Trouble concentrating on things, such as reading the newspaper or watching television: nearly every day 8. Moving or speaking so slowly that other people could have noticed. Or the opposite - being so fidgety or restless that you have been moving around a lot more than usual: not at all 9. Thoughts that you would be better off or of hurting yourself in some way: not at all Total score: 18 Depression Screening Interpretation: Positive Depression Screening Done: Yes 44697 - PHQ-9 [facility]illing: [facility] Source: Developed by Drs. Riley Banuelos, Jose J Edwards and colleagues, with an educational xiang from [employer]. Thrive Questionnaire Date Thrive assessed: 04/25/23 TAWNYA-7 AMB Questionnaire TAWNYA-7 Date TAWNYA - 7 assessed: 10/11/22 Source: Developed by Drs. Riley Banuelos, Jose J Edwards and colleagues, with an educational xiang from [employer]. Review of Systems Const All systems reviewed & are unremarkable except as noted in HPI and below Physical exam (Primary Care) Vital Signs: Last Vital Signs Pulse 90 06/13/23 12:46 BP 108/62 06/13/23 12:46 Pulse Ox 98 06/13/23 12:46 Oxygen Delivery Method Room Air 06/13/23 12:46 Tobacco/Smoking Status: Tobacco use Status Tobacco use date assessed 03/30/23 06/13/23 12:47 Patient Tobacco Use Status Current everyday Tobacco 06/13/23 12:47 Tobacco use type Cigarette 06/13/23 12:47 e-Cigarette/Vaping Use Never Used 06/13/23 12:47 PHQ-9: PHQ-9 Score PHQ-9: Total score 18 06/21/23 14:58 Depression Screening Interpretation: Positive Thrive Assessment: Date of Thrive Assessment Date Thrive assessed 04/25/23 06/13/23 12:47 Const Other: Constitutional - Awake and Alert, laying in ems stretcher, No apparent distress Eyes - PERRLA, EOMI Cardiovascular - S1S2, RRR, No edema Respiratory - Normal lung expansion, Normal respiratory effort, No respiratory distress, CTA bilaterally Gastrointestinal - NT / ND; +BS; No rebound or guarding Extremities - no calf tenderness bilaterally, no swelling Skin - Warm/Dry Neurological - Alert & oriented x3, CN II-XII in tact, 5/5 strength BUE and BLE Psychological - Appropriate affect Results Reviewed Results Reviewed: cbc, bmp, magnesium, head ct, operative note, GI consult, H&P, Discharge summary Assessment and Plan Assessment & Plan (1) Acute anemia: Code(s): D64.9 - Anemia, unspecified Plan: Etiology unclear. Required 1 unit packed red blood cells while admitted. Post trasfusion, irons levels elevated. Unreliable. Vitamin B12 levels and folic acid normal. EDG/colonoscopy inpt without obvious source active bleeding. Repeat H&H today 11.1/35.0% with MCV 104.2. Iron studies have normalized. Per GI, Hematology consult placed. (2) Alcohol withdrawal: Code(s): F10.939 - Alcohol use, unspecified with withdrawal, unspecified Plan: Treated with phenobarbital without complication while admitted. Has not consumed alcohol since discharge. Ongoing cessation strongly advised as this is likely contributing to overall decline/encephalopathy that has now resolved. Continue folic acid and thiamine supplements. (3) Hypomagnesemia: Code(s): E83.42 - Hypomagnesemia Plan: Likely secondary to alcohol use. Magnesium level normal today at 1.9. Continue magnesium supplementation orally. (4) Hypokalemia: Code(s): E87.6 - Hypokalemia Plan: Likely related to severe hypo magnesiumia. K level has normalized on discharge. (5) Severe protein-calorie malnutrition: Code(s): E43 - Unspecified severe protein-calorie malnutrition Plan: Slowly gaining weight. Continue ensure and increase calorie intake (6) Weakness: Code(s): R53.1 - Weakness Plan: Patient with gross deconditioning related to lack of activity/alcohol use and protein calorie deficient malnutrition. Pt initally declined home services. Discussed with patient that without intervention she will lose her ability to ambulate/stand all together. She expressed understanding and is agreeable to VNA services at this time. Referral placed for nursing services to check labs monthly given chronic anemia as well as pt/ot. [facility] for ART PSYCHOTHERAPIST services (7) Dementia: Code(s): F03.90 - Unspecified dementia, unspecified severity, without behavioral disturbance, psychotic disturbance, mood disturbance, and anxiety Plan: Head CT noting cerebral atrophy, likely in the setting of chronic alcohol use. Per daughter, pt with short term memory loss and some ongoing confusion. However, no further hallucinations. Will follow up with neurology, referral placed. continue avoidance of alcohol. Lives at home with and has services through [facility]. VNA referral as above. (8) Mental status alteration: Code(s): R41.82 - Altered mental status, unspecified Plan: Acute metabolic encephalopathy r/t alcohol use but still with ongoing cognitive decline as above. Plan as above. Orders: Orders Complete Blood Count Auto Diff 06/13/23 D64.9 - Anemia, unspecified IRON PROFILE 06/13/23 D64.9 - Anemia, unspecified Ferritin 06/13/23 D64.9 - Anemia, unspecified Basic Metabolic Panel 06/13/23 E87.6 - Hypokalemia, E83.42 - Hypomagnesemia Magnesium 06/13/23 E83.42 - Hypomagnesemia [facility]errals [facility] Referral D64.9 - Anemia, unspecified, E83.42 - Hypomagnesemia, E87.6 - Hypokalemia, F03.90 - Unspecified dementia, unspecified severity, without behavioral disturbance, psychotic disturbance, mood disturbance, and anxiety, R53.1 - Weakness, E43 - Unspecified severe protein-calorie malnutrition Neurology Referral R53.1 - Weakness, R41.82 - Altered mental status, unspecified Hematology & Oncology Referral D50.9 - Iron deficiency anemia, unspecified Medications: Refilled duloxetine 20 mg PO BID 60 caps 1RF folic acid 0.4 mg PO DAILY 30 tabs 3RF 30 days Coding Level of Care Code Est Pt Level 5 (85470) Diagnoses Acute anemia D64.9 Alcohol withdrawal F10.939 Hypomagnesemia E83.42 Hypokalemia E87.6 Severe protein-calorie malnutrition E43 Weakness R53.1 Dementia F03.90 Mental status alteration R41.82 Time Spent (min) 50 Comment time spent reviewing, discussion with family/pt, and documentation time
== END 2023-06-13 13:27 | disposition home or self-care (01) ==
PROVIDERS: PCP Nurse Practitioner Family; Visit Provider Physician Assistant
DX: D64.9 Anemia, unspecified (principal); F10.939 Alcohol use, unspecified with withdrawal, unspecified; E83.42 Hypomagnesemia; E43 Unspecified severe protein-calorie malnutrition; E87.6 Hypokalemia; R53.1 Weakness; R41.82 Altered mental status, unspecified
CPT/HCPCS: 99215

== ENCOUNTER 2023-06-13 13:29 | Outpatient (REF) | payer OTHER, SELFPAY ==
[2023-06-13 13:42] LABS: MANUAL DIFF FLAG NO
[2023-06-13 14:58] LABS: Basophils Percent Auto 0.4 % (0-2); Eosinophils Percent Auto 0.5 % (0-4); Hemoglobin 11.1 g/dl (12.0-16.0); Imm Gran Abs Auto 0.02 X10*3/uL (0.00-0.03); Imm Gran Pct Auto 0.3 % (0.0-0.4); Lymphocytes Absolute Auto 2.4 X10*3/uL (1.2-4.9); Mean Corpuscular HGB Conc 31.7 g/dl (31.0-35.0); Mean Corpuscular Volume 104.2 fL (80.0-98.0); Mean Platelet Volume 12.4 fL (9.4-12.3); Monocytes Absolute Auto 0.5 X10*3/uL (0.1-1.2); Monocytes Percent Auto 6.8 % (2-11); Neutrophils Absolute Auto 4.5 x10*3/uL (2.0-8.3); Platelet Count 218 X10*3/uL (160-400); Red Blood Count 3.36 X10*6/uL (4.20-5.50); Red Cell Distribution Width 14.6 % (11.0-16.0); White Blood Count 7.5 X10*3/uL (4.8-10.8)
[2023-06-13 17:06] LABS: Anion Gap 14 (12-20); Blood Urea Nitrogen 22 mg/dL (9-16); Calcium 9.4 mg/dL (8.4-10.2); Carbon Dioxide 22 mmol/L (22-29); Chloride 109 mmol/L (96-108); Estimated Glomerular Filt Rate > 60; Glucose Random 91 mg/dL (60-115); Iron 80 mcg/dL (30-160); Magnesium 1.9 mg/dL (1.6-2.6); Percent Iron Saturation 38 % (15-50); Potassium 5.7 mmol/L (3.3-5.1); Sodium 139 mmol/L (135-145); Total Iron Binding Capacity 213 mcg/dL (228-428); Unsaturated Iron Binding 133 ug/dL
[2023-06-13 17:07] LABS: Ferritin 315 ng/mL (10-250)
== END 2023-06-13 13:30 | disposition home or self-care (01) ==
LOC: HO.LAB 13:29
PROVIDERS: Visit Provider Physician Assistant
DX: E87.6 Hypokalemia (principal); E83.42 Hypomagnesemia; D64.9 Anemia, unspecified
CPT/HCPCS: 36415; 80048; 82728; 83540; 83735; 85025

== ENCOUNTER 2023-06-28 12:30 | Outpatient (REF) | payer OTHER, SELFPAY | END 2023-06-28 12:31 | disposition home or self-care (01) | LOC: HO.LNP 12:30 | PROVIDERS: Visit Provider Internal Medicine | DX: Z13.89 Encounter for screening for other disorder (principal) ==

== ENCOUNTER 2023-06-28 14:57 | Outpatient (REF) | payer OTHER, SELFPAY ==
[2023-06-28 15:17] LABS: Anion Gap 14 (12-20); Blood Urea Nitrogen 19 mg/dL (9-16); Carbon Dioxide 24 mmol/L (22-29); Chloride 108 mmol/L (96-108); Estimated Glomerular Filt Rate 57; Glucose Random 88 mg/dL (60-115); Potassium 4.9 mmol/L (3.3-5.1); Sodium 141 mmol/L (135-145)
== END 2023-06-28 14:58 | disposition home or self-care (01) ==
LOC: HO.HVNA 14:57
PROVIDERS: Visit Provider Internal Medicine
DX: E87.5 Hyperkalemia (principal)
CPT/HCPCS: 36415; 80048

== ENCOUNTER → 2023-07-19 12:28 | Outpatient (BNV) | payer OTHER, SELFPAY | PROVIDERS: PCP Nurse Practitioner Family; Visit Provider Internal Medicine Medical Oncology | DX: D64.9 Anemia, unspecified (principal) | CPT/HCPCS: 99204 ==

== ENCOUNTER 2023-07-22 09:51 | Outpatient (REF) | payer OTHER, SELFPAY ==
[2023-07-22 10:10] LABS: Anion Gap 15 (12-20); Blood Urea Nitrogen 32 mg/dL (9-16); Calcium 9.6 mg/dL (8.4-10.2); Carbon Dioxide 23 mmol/L (22-29); Chloride 106 mmol/L (96-108); Estimated Glomerular Filt Rate > 60; Glucose Fasting 94 mg/dL (60-99); Potassium 4.4 mmol/L (3.3-5.1); Sodium 140 mmol/L (135-145)
== END 2023-07-22 09:52 | disposition home or self-care (01) ==
LOC: HO.HVNA 09:51
PROVIDERS: Visit Provider Internal Medicine
DX: E87.5 Hyperkalemia (principal)
CPT/HCPCS: 36415; 80048

== ENCOUNTER 2023-08-22 13:24 | Outpatient (REF) | payer OTHER, SELFPAY ==
[2023-08-22 15:21] LABS: T4 Thyroxine 9.5 ug/dL (4.5-12.0); Thyroid Stimulating Hormone 1.01 uIU/mL (0.32-4.0)
[2023-08-22 15:41] LABS: Folate > 20.0 ng/mL (> or = 4.0); Vitamin B12 604 pg/mL (200-900)
[2023-08-30 16:04] LABS: Vitamin B1 6 nmol/L (8-30)
== END 2023-08-22 13:25 | disposition home or self-care (01) ==
LOC: HO.LAB 13:24
PROVIDERS: PCP Internal Medicine; Visit Provider Psychiatry & Neurology Neurology
DX: F10.27 Alcohol dependence with alcohol-induced persisting dementia (principal)
CPT/HCPCS: 36415; 82607; 82746; 84425; 84436; 84443

== ENCOUNTER 2024-01-11 09:04 | Outpatient (AMB) | payer OTHER, SELFPAY ==
--- NOTE | 2024-01-11 09:13 | MHC.PC.OV ---
Vital Signs 01/11/24 09:20 Height 5 ft 4 in Weight 102 lb 2 oz BMI 17.5 BP 98/58 L Blood Pressure Location Lt brachial Position Sitting Pulse 86 Pulse Source Pulse Oximeter Temp 98.4 F Temp Source Oral Pulse Oximetry (%) 98 Oxygen Delivery Method Room Air Intake Visit Reasons: Xfer care/Nasrin-Est care Intake Note: new patient visit pt also states she is having abd problem Accompanied by: Spouse Is last menstrual period known: No Post menopausal: Yes Patient : No Allergies Sulfa (Sulfonamide Antibiotics) Allergy (Intermediate, Verified 01/11/24 09:44) Redness of Skin rash Medication List - Last Reconciled 01/11/24 by Sangita Carbajal, DIRECTOR OF SALES SUPPORT-BC albuterol sulfate 90 mcg/actuation (Ventolin HFA) 2 puffs PO QID PRN cholecalciferol (vitamin D3) 50 mcg PO DAILY duloxetine 20 mg PO BID folic acid 0.4 mg PO DAILY 30 days magnesium oxide 500 mg PO BID omeprazole 20 mg PO DAILY umeclidinium-vilanterol 62.5-25 mcg/actuation (Anoro Ellipta) 1 inh inhalation DAILY valsartan 40 mg PO BID 3 months Tobacco use date assessed: 01/11/24 Dental Screening Dental Screen Date: 01/11/24 Did you have a dental visit in the last 12 months?: No Did you have a dental problem in the last 6 months where you did not have access to dental care?: No Was dental information given to patient?: Yes HPI HPI Comments History of Present Illness Details [age] year female with hypertension, alcohol dependence, tobacco dependence, generalized anxiety disorder, MDD, anemia, GERD, Hypomagnesium, peripheral neuropathy, multiple lung nodules, COPD, vascular dementia (head ct 04/25/23 diffuse volume loss , subcortical white matter c/w microvasc ischemia), CKD 3, CAD (mild of the aorta noted on CTA of the chest 09/28/21, moderately severe aortoiliac atherosclerotic calcification Abd pelvis ct 04/24/23), calcified granuloma of liver, benign simple bilat renal cysts (no fu required Abd pelvis ct 04/24/23), anasarca, Spinal DJD,chronic sinusitis Status post ORIF left hip 2022, hysterectomy Health Maintenance: ? Colon an EGD 04/26/2023 at [facility], repeat colonoscopy 2027 ? Mammo declined ? DEXA declined ? PAP ? Tdap given today Specialists: GI Hematology - not active Orthopedics Nephrology never saw them per report [place]rology [place] [facility] [place]. Lung cancer screening - 2022 no showed at [facility], declined future f/u Urology group was a [facility] per records no showed her initial consult; states saw someone at [place] but has not ff'd up since Here today to est care and for complete physical exam. She is accompanied by her boyfriend, Frank Her only complaint today is that of chronic abdominal pain. This has been ongoing. She continues to drink alcohol daily. Reports cutting down. She has chronic diarrhea which she reports is improved. Reports that her appetite is pretty good. Her weight is stable. Fell out of care with all of her providers to include Gastroenterology; she is open to a referral to be placed today. She does continue to smoke cigarettes daily, working on cutting down on the amount that she smokes. She was active in a lung cancer screening program at [facility] in the past. She fell out of care. She has no interest in following up on any lung cancer screening programs. Furthermore she does decline mammogram and bone density as well. Due to her neuropathy she has a wheelchair for long distances. Also has a walker and cane to support her. No recent falls. She is home alone. Does not have a life alert but he is very interested in this. Does have a cell phone that she tries to keep on her at all times. Her breathing is well controlled with Anoro and p.r.n. albuterol. Reports her mood is stable using duloxetine. Her gerd is well controlled using omeprazole. Blood pressure is well controlled using valsartan. On a vitamin-D supplement along with magnesium. Boyfriend complains of chronic rhinitis. Was on loratadine in the past but ran out of prescription. Would like this medication sent in if at all possible. She has also maintained on folic acid given her chronic ETOH use and abuse. She has vascular dementia and depends on others to help make decisions for her and help her with her activities of daily living. Her boyfriend manages her medications. She has 2 daughters who she reports are her healthcare proxies. Her healthcare proxy should be invoked given her vascular dementia. >>Tammy Dupont HCP 1 >>>Prisca Dupont alternatve Exam: Awake alert accompanied by sig other, Frank, chronically ill appearing, sitting in wheel chair scleras mildly icteric bilat RRR Abd soft, tender over RUQ and LLQ, examined in wheel chair No edema BLE, skin intact, muscle wasting apparrent 6 CIT done 04/14 Pleasant, anxious Labs from today show macrocytic anemia which is chronic for her, normal electrolytes, normal renal function, hemoglobin A1c 4.5%, normal phosphorus, low magnesium 1.5 which is also chronic for her, normal iron, elevated ferritin, normal bili Abreu and LFTs, elevated alk phos at 140, normal B12, normal TSH, negative hepatitis profile Plan: I have sent a message to the staff to help her obtain a life Alert or the like of what she would benefit from. I have asked her to have her daughter come to the office at the next appointment so that I can make sure that the healthcare proxy form is completed, at that time I will invoke the healthcare proxy as she is unable to make her own medical decisions. The patient is okay with this. The labs from today are stable for her. She is currently taking a magnesium supplement. I will have staff follow up to ensure that she is taking it twice per day. Tdap today Cont meds as prescribed. Refills sent as requested, New RX for claritin to help w/ seasonal allergies Tobacco and etoh cessation education RTO in a few weeks to activate HCP & fu on labs, chronic conditions This note is constructed using voice recognition software. While every effort has been made to ensure accuracy in cupola charger, still errors may have been included Sometimes, these errors may affect the content or meaning of the given sentence . [facility] Medical History (Updated 01/11/24 @ 15:40 by Sangita Carbajal, [facility]) Weakness Hyperkalemia Asthma Vascular dementia Iron deficiency anemia Right arm fracture Peripheral neuropathy Multiple nodules of lung Weakness of left side of body Chronic back pain Arthritis COPD (chronic obstructive pulmonary disease) Depression Anxiety Surgical History Hx of colonoscopy History of hip surgery Previous back surgery H/O: hysterectomy Family History Mother Breast cancer Father Lung cancer Paternal Grandfather Lingle disease [facility] History (Updated 01/11/24 @ 09:22 by Katty Cruz [facility]) Household Members: Friend(s) Housing: Other Housing Other:: trailer Do you presently have visiting nurse or other home services: No Alcohol intake: current Alcohol intake frequency: 3 or more drinks per day Alcohol type: hard liquor Patient Tobacco Use Status: Current everyday Tobacco user Tobacco use type: Cigarette Cigarette Packs Per Day: 0.5 Years Smoked: 40 e-Cigarette/Vaping Use: Never Used Second Hand Smoke Exposure: Yes Substance Use Type: Marijuana service: No Current occupational status: unemployed Current occupational exposures/hazards: No Cognitive needs: Yes (walker, wheelchair) Hearing needs: No Vision needs: Yes (glasses) Questionnaire PHQ-9 Over the last 2 weeks, how often have you been bothered by any of the following problems? 1. Little interest or pleasure in doing things: not at all 2. Feeling down, depressed, or hopeless: several days 3. Trouble falling or staying asleep, or sleeping too much: not at all 4. Feeling tired or having little energy: several days 5. Poor appetite or overeating: not at all 6. Feeling bad about yourself - or that you are a failure or have let yourself or your family down: not at all 7. Trouble concentrating on things, such as reading the newspaper or watching television: not at all 8. Moving or speaking so slowly that other people could have noticed. Or the opposite - being so fidgety or restless that you have been moving around a lot more than usual: not at all 9. Thoughts that you would be better off or of hurting yourself in some way: not at all Total score: 2 Depression Screening Interpretation: Negative Depression Screening Done: Yes 56252 - PHQ-9 Billing: Yes Source: Developed by Drs. Riley Banuelos, Clementine Leblanc, Jose J Benítez and colleagues, with an educational xiang from [email or web address]. Thrive Questionnaire Date Thrive assessed: 01/11/24 I am a: Patient What is your living situation today?: I have a steady place to live Within the past 12 months, did the food you bought not last and you didn't have the money to get more?: Never true Within the past 12 months, did you worry whether your food would run out before you got money to buy more?: Never true Do you have trouble paying for medicines?: No Do you have trouble getting transportation to medical appointments?: No Do you have trouble paying your heating and electricity bill?: No Do you have trouble taking care of your child, family member or friend?: No Do you have trouble with day-to-day activities such as bathing, preparing meals, shopping, managing finances, etc.?: Yes Are you currently unemployed and looking for a job?: No Are you interested in more education?: No Please select the resources that you would like help with: Daily support and None Currently or been in a relationship where the following occur: No concerns reported THRIVE Score: 0 AUDIT C Alcohol Use Questionnaire (AUDIT-C) 1. How often do you have a drink containing alcohol?: Monthly or less 2. How many drinks containing alcohol do you have on a typical day when you are drinking?: 5 or 6 3. How often do you have six or more drinks on one occasion?: Less than monthly Total Score: 4 Score Reviewed/Action Taken: Yes TAWNYA-7 AMB Questionnaire TAWNYA-7 Date TAWNYA - 7 assessed: 01/11/24 Feeling nervous, anxious, or on edge: 0 = Not at all Not being able to stop or control worryin = Not at all Worrying too much about different things: 0 = Not at all Trouble relaxin = Several days Being so restless that it is hard to sit still: 0 = Not at all Becoming easily annoyed or irritable: 1 = Several days Feeling afraid as if something awful might happen: 0 = Not at all Total TAWNYA-7 score (0-4 normal; 5-9 mild; 10-14 moderate; 15-21 severe): 2 Source: Developed by Drs. Riley Banuelos, Clementine Leblanc, Jose J Benítez and colleagues, with an educational xiang from [email or web address]. TAWNYA-7 Assessment Billing TAWNYA-7 Assessment Tool: TAWNYA-7 Assessment 49862 Physical exam (Primary Care) Vital Signs: Last Vital Signs Temp 98.4 F 01/11/24 09:20 Pulse 86 01/11/24 09:20 BP 98/58 L 01/11/24 09:20 Pulse Ox 98 01/11/24 09:20 Oxygen Delivery Method Room Air 01/11/24 09:20 BMI result Body Mass Index 17.5 Tobacco/Smoking Status: Tobacco use Status Tobacco use date assessed 01/11/24 01/11/24 09:39 Patient Tobacco Use Status Current everyday Tobacco 01/11/24 09:27 Tobacco use type Cigarette 01/11/24 09:27 e-Cigarette/Vaping Use Never Used 01/11/24 09:27 Are you ready to quit: No Tobacco cessation counseling provided: Yes Items discussed: Other Relapse Prevention: discussed the importance of a supportive environment, discussed extending NRT, discussed negative mood or depression after quitting, weight gain after smoking is common and discussed dietary, exercise and/or lifestyle changes Number of minutes spent counselin CPT code: 12301 - 4-10 Minutes PHQ-9: PHQ-9 Score PHQ-9: Total score 2 01/11/24 15:06 Depression Screening Interpretation: Negative Thrive Assessment: Date of Thrive Assessment Date Thrive assessed 01/11/24 01/11/24 09:33 Currently or been in a relationship where the following occur: No concerns reported Advance Care Planning discussion: Exists, not on file Date of discussion: 01/11/24 Who was present: pt and boyfriend Frank Forms completed: Health Care Proxy Time spent: 1-15 minutes, not on file Actual minutes spent: 5 Immunizations Boostrix Tdap 2.5 Lf unit-8 mcg-5 Lf/0.5 mL intramuscular syringe Performing Provider: AYDIN Adrian Performing Location: [facility] Administered by: Katty Cruz CMA on 01/11/24 09:51 Dose Route Admin Location Dispensed Lot Number Expiration Date [facility] Hi Lift Operator 0.5 mL IM Left Deltoid 0.5 mL [id number] 01/24/26 20012-454-07 Breath of [employer] VIS Given Date VIS Provided VIS Publication Date 01/11/24 Single Vaccine 21 Eligibility Eligibility Date Funding Source Not [facility] Eligible 01/11/24 Private Assessment and Plan Assessment & Plan (1) Diarrhea: Code(s): R19.7 - Diarrhea, unspecified Qualifiers: Diarrhea type: due to malabsorption Qualified Code(s): K90.9 - Intestinal malabsorption, unspecified; R19.7 - Diarrhea, unspecified (2) Alcohol dependence: Code(s): F10.20 - Alcohol dependence, uncomplicated Qualifiers: Substance use status: alcohol-induced anxiety disorder Qualified Code(s): F10.280 - Alcohol dependence with alcohol-induced anxiety disorder (3) Chronic GERD: Code(s): K21.9 - Gastro-esophageal reflux disease without esophagitis (4) Laboratory exam ordered as part of routine general medical examination: Code(s): Z00.00 - Encounter for general adult medical examination without abnormal findings (5) Hypertension, essential: Code(s): I10 - Essential (primary) hypertension (6) Tobacco dependence due to cigarettes: Code(s): F17.210 - Nicotine dependence, cigarettes, uncomplicated (7) TAWNYA (generalized anxiety disorder): Code(s): F41.1 - Generalized anxiety disorder (8) MDD (major depressive disorder), recurrent episode: Code(s): F33.9 - Major depressive disorder, recurrent, unspecified Qualifiers: Major depression episode severity: moderate Qualified Code(s): F33.1 - Major depressive disorder, recurrent, moderate (9) Chronic anemia: Code(s): D64.9 - Anemia, unspecified (10) Hypomagnesemia: Code(s): E83.42 - Hypomagnesemia (11) Peripheral neuropathy: Code(s): G62.9 - Polyneuropathy, unspecified Qualifiers: Peripheral neuropathy type: polyneuropathy, alcohol-induced Qualified Code(s): G62.1 - Alcoholic polyneuropathy (12) Multiple nodules of lung: Code(s): R91.8 - Other nonspecific abnormal finding of lung field (13) COPD (chronic obstructive pulmonary disease): Code(s): J44.9 - Chronic obstructive pulmonary disease, unspecified Qualifiers: COPD type: emphysema Emphysema type: panlobular Qualified Code(s): J43.1 - Panlobular emphysema (14) CKD (chronic kidney disease) stage 3, GFR 30-59 ml/min: Code(s): N18.30 - Chronic kidney disease, stage 3 unspecified Qualifiers: Chronic kidney disease stage 3 subtype: stage 3a (GFR 45-59) Qualified Code(s): N18.31 - Chronic kidney disease, stage 3a (15) CAD (coronary artery disease): Comment: (mild of the aorta noted on CTA of the chest 09/28/21, moderately severe aortoiliac atherosclerotic calcification Abd pelvis ct 04/24/23), Code(s): I25.10 - Atherosclerotic heart disease of [place] coronary artery without angina pectoris Qualifiers: Coronary Disease-Associated Artery/Lesion type: [place] artery [place] vs. transplanted heart: [place] heart Associated angina: without angina Qualified Code(s): I25.10 - Atherosclerotic heart disease of [place] coronary artery without angina pectoris (16) Bilateral renal cysts: Comment: benign no fu required Abd pelvis ct 04/24/23) Code(s): N28.1 - Cyst of kidney, acquired (17) Degenerative joint disease of spine: Code(s): M47.9 - Spondylosis, unspecified Qualifiers: Spinal region: lumbosacral Spinal osteoarthritis complication: without myelopathy or radiculopathy Qualified Code(s): M47.817 - Spondylosis without myelopathy or radiculopathy, lumbosacral region (18) Dementia: Comment: (head ct 04/25/23 diffuse volume loss , subcortical white matter c/w microvasc ischemia), Code(s): F03.90 - Unspecified dementia, unspecified severity, without behavioral disturbance, psychotic disturbance, mood disturbance, and anxiety Qualifiers: Dementia type: vascular dementia Dementia severity: moderate Dementia behavioral or psychological symptom: with anxiety Qualified Code(s): F01.B4 - Vascular dementia, moderate, with anxiety (19) Encounter for general adult medical examination with abnormal findings: Code(s): Z00.01 - Encounter for general adult medical examination with abnormal findings Orders: Orders Comprehensive Met. Panel Today Z00.00 - Encounter for general adult medical examination without abnormal findings IRON PROFILE Today Z00.00 - Encounter for general adult medical examination without abnormal findings Hemoglobin A1c Today Z00.00 - Encounter for general adult medical examination without abnormal findings Vitamin B12 and Folate Today Z00.00 - Encounter for general adult medical examination without abnormal findings Hepatitis A,B,C Profile Today Z00.00 - Encounter for general adult medical examination without abnormal findings Magnesium Today Z00.00 - Encounter for general adult medical examination without abnormal findings Ferritin Today Z00.00 - Encounter for general adult medical examination without abnormal findings TDaP Immunization Today Z23 - Encounter for immunization Complete Blood Count no Diff Today Z00.00 - Encounter for general adult medical examination without abnormal findings LDL Cholesterol Direct Today Z00.00 - Encounter for general adult medical examination without abnormal findings TSH reflex Free T4 Today Z00.00 - Encounter for general adult medical examination without abnormal findings Phosphorus Today Z00.00 - Encounter for general adult medical examination without abnormal findings Referrals Gastroenterology Referral F10.20 - Alcohol dependence, uncomplicated, K21.9 - Gastro-esophageal reflux disease without esophagitis, R19.7 - Diarrhea, unspecified Medications: New loratadine 10 mg PO DAILY 90 tabs 2RF Refilled umeclidinium-vilanterol 62.5-25 mcg/actuation (Anoro Ellipta) 1 inh inhalation DAILY 60 ea 5RF albuterol sulfate 90 mcg/actuation (Ventolin HFA) 2 puffs PO QID PRN 6.7 grams 3RF Shortness Of Breath Or Wheezing Patient Instructions: Smoking Cessation How to Quit There are a lot of ways to quit smoking and many resources to help you. Family members, friends, and co-workers may be supportive or encouraging, but to be successful the desire and commitment to quit must be your own. Most people who have been able to successfully quit smoking made at least one unsuccessful attempt in the past. Try not to view past attempts to quit as failures, but rather as learning experiences. Stopping smoking or using smokeless tobacco is difficult, but anyone can do it. Know the symptoms to expect when you stop. Common symptoms include: ? An intense craving for nicotine ? Anxiety, tension, restlessness, frustration, or impatience ? Difficulty concentrating ? Drowsiness or trouble sleeping, as well as bad dreams and nightmares ? Drowsiness and trouble sleeping ? Headaches ? Increased appetite and weight gain ? Irritability or depression How severe your symptoms are depends on how long you smoked and how many cigarettes you smoked each day. Feel ready to quit? ? First and foremost, set a quit date and quit completely on that day. Before your quit date, you may begin reducing your cigarette use. But remember, there is no safe level of cigarette smoking. ? List the reasons why you want to quit. Include both short- and long-term benefits. ? Identify the times you are most likely to smoke. For example, do you tend to smoke when feeling stressed or down? When out at night with friends? While drinking coffee or alcohol? When bored? While driving? Right after a meal or sex? During a work break? While watching TV or playing cards? When you are with other smokers? ? Let all of your friends, family, and co-workers know of your plan to stop smoking and your quit date. Just being aware that they know what you're going through can be helpful, especially when you are grumpy. ? Get rid of all your cigarettes just before the quit date, and clean out anything that smells like smoke, such as clothes and furniture. Make a plan about what you will do instead of smoking at those times when you are most likely to smoke. ? Be as specific as possible. For example, drink tea instead of coffee -- tea may not trigger the desire for a cigarette. Or, take a walk when you feel stressed. ? Remove ashtrays and cigarettes from the car. Place pretzels or hard candies there instead. Pretend-smoke with a straw. ? Find activities that focus your hands and mind but are not taxing or fattening. Computer games, solitaire, knitting, sewing, and crossword puzzles may help. ? If you normally smoke after eating, find other ways to end a meal. Play a tape or CD, eat a piece of fruit, get up and make a phone call, or take a walk (a good distraction that also srivastava calories). Make other changes in your lifestyle. ? Change your daily schedule and habits. Eat at different times or eat several small meals instead of three large ones. Sit in a different chair or even a different room. ? Satisfy your oral habits by eating celery or other low-calorie snack, chewing sugarless gum, or sucking on a cinnamon stick. ? Go to public places and restaurants where smoking is prohibited or restricted. ? Eat regular meals and don't eat too much candy or sweet things. ? Get more exercise. Take walks or ride a bike. Exercise helps relieve the urge to smoke. Set short-term quitting goals and reward yourself when you meet them. ? Every day, put the money you normally spend on cigarettes in a jar. Then buy something pleasurable after a period of time. ? Try not to think about all the days ahead you will need to avoid smoking. Take it one day at a time. ? Even one puff or one cigarette will make your desire for more cigarettes even stronger. However, it is normal to make mistakes. So even if you have one cigarette, you don't need to take the next one. Other tips to help you quit smoking and stick to it: ? Enroll in a smoking cessation program (hospitals, health departments, community centers, and work sites often offer programs). Learn about self-hypnosis or other techniques. ? Ask your health care provider about prescription medications that are safe and appropriate for you. ? Find out about nicotine patches, gum, and sprays. The [place] [employer]'s web site -- www.cancer.org -- is an excellent resource for smokers who are trying to quit, and the [employer] [place] [employer] can help some smokers kick the habit. Above all, don't get discouraged if you aren't able to quit smoking the first time. Nicotine addiction is a hard habit to break. Try something different next time. Develop new strategies, and try again. Many people take several attempts to finally kick the habit. Health screenings for women You should visit your health care provider from time to time, even if you are healthy. The purpose of these visits is to: Screen for medical issues Assess your risk for future medical problems Encourage a healthy lifestyle Update vaccinations and other preventive care services Help you get to know your provider in case of an illness Information Even if you feel fine, you should still see your provider for regular checkups. These visits can help you avoid problems in the future. For example, the only way to find out if you have high blood pressure is to have it checked regularly. High blood sugar and high cholesterol levels also may not have any symptoms in the early stages. A simple blood test can check for these conditions. There are specific times when you should see your provider or receive specific health screenings. The [place] Preventive Services Task Force publishes a list of recommended screenings. Below are screening guidelines for women ages 18 to 39. BLOOD PRESSURE SCREENING Your blood pressure should be checked at least once every 3 to 5 years if: Your blood pressure is in the normal range (top number less than 120 mm Hg and bottom number less than 80 mm Hg) You don't have risk factors for high blood pressure Ask your provider if you need your blood pressure checked more often if: The top number is 120 to 129 mm Hg or the bottom number is 70 to 79 mm Hg You have diabetes, heart disease, kidney problems, are overweight, or have certain other health conditions You have a first-degree relative with high blood pressure You are Black You had high blood pressure during a If the top number is 130 mm Hg or greater or the bottom number is 80 mm Hg or greater, this is considered stage 1 hypertension. Schedule an appointment with your provider to learn how you can reduce your blood pressure. Watch for blood pressure screenings in your area. Ask your provider if you can stop in to have your blood pressure checked. BREAST CANCER SCREENING Experts do not agree about the benefits of breast self-exams in finding breast cancer or saving lives. Talk to your provider about what is best for you. A screening mammogram is not recommended for most women under age 40. Your provider may discuss and recommend mammograms, MRI scans, or ultrasounds if you have an increased risk for breast cancer, such as: A mother or sister who had breast cancer at a young age (most often starting screening earlier than the age the close relative was diagnosed) You carry a high-risk genetic marker CERVICAL CANCER SCREENING Cervical cancer screening should start at age 21 years unless your provider advises otherwise. After the first test: Women ages 21 through 29 should have a Pap test every 3 years. Exoprts do not agree on whether HPV testing is recommended for this age group. Women ages 30 through 65 should be screened with either a Pap test every 3 years or the HPV test every 5 years or both tests every 5 years (called cotesting ). Women who have been treated for precancer (cervical dysplasia) should continue to have Pap tests for 20 years after treatment or until age 65, whichever is longer. If you have had your uterus and cervix removed (total hysterectomy), and you have not been diagnosed with cervical cancer or precancer (high grade cervical neoplasia), you do not need cervical cancer screening. CHOLESTEROL SCREENING Cholesterol screening should begin at: Age 45 for women with no known risk factors for coronary heart disease Age 20 for women with known risk factors for coronary heart disease Repeat cholesterol screening should take place: Every 5 years for women with normal cholesterol levels More often if changes occur in lifestyle (including weight gain and diet) More often if you have diabetes, heart disease, kidney problems, or certain other conditions DIABETES SCREENING You should be screened for diabetes starting at age 35 and then repeated every 3 years if you have no risk factors for diabetes. Screening may need to start earlier and be repeated more often if you have other risk factors for diabetes, such as: You have a first degree relative with diabetes. You are overweight or have obesity. You have high blood pressure, prediabetes, or a history of heart disease. Screening for diabetes should be done if you are planning to become and you are overweight and have other risk factors such as high blood pressure. DENTAL EXAM Go to the dentist once or twice every year for an exam and cleaning. Your dentist will evaluate if you need more frequent visits. EYE EXAM Have an eye exam every 5 to 10 years before age 40. If you have vision problems, have an eye exam every 2 years or more often if recommended by your provider. You should have an eye exam that includes an examination of your retina (back of your eye) at least every year if you have diabetes. IMMUNIZATIONS Commonly needed vaccines include: Flu shot: get one every year. COVID-19 vaccine: ask your provider what is best for you. Tetanus-diphtheria and acellular pertussis (Tdap) vaccine: have one at or after age 19 as one of your tetanus-diphtheria vaccines if you did not receive it as an adolescent. Tetanus-diphtheria: have a booster (or Tdap) every 10 years. Varicella vaccine: receive 2 doses if you never had chickenpox or the varicella vaccine. Hepatitis B vaccine: receive 2, 3, or 4 doses, depending on your exact circumstances. Measles, mumps, and rubella (MMR) vaccine: receive 1 to 2 doses if you are not already immune to MMR. Your provider can tell you if you are immune. Ask your provider about the human papillomavirus (HPV) vaccine if: You have not received the HPV vaccine in the past You have not completed the full vaccine series (you should catch up on this shot) Ask your provider if you should receive other immunizations if you have certain health problems that increase your risk for some diseases such as pneumonia. INFECTIOUS DISEASE SCREENING Women who are sexually active should be screened for chlamydia and gonorrhea up until age 25. Women 25 years and older should be screened for chlamydia and gonorrhea if at high risk. Screening for hepatitis C: All adults ages 18 to 79 should get a one-time test for hepatitis C. people should be screened at every . Screening for human immunodeficiency virus (HIV): All people ages 15 to 65 should get a one-time test for HIV. Depending on your lifestyle and medical history, you may also need to be screened for infections such as syphilis and HIV, as well as other infections. PHYSICAL EXAM All adults should visit their provider from time to time, even if they are healthy. The purpose of these visits is to: Screen for disease Assess your risk of future medical problems Encourage a healthy lifestyle Update your vaccinations and other preventive care services Maintain a relationship with a provider in case of an illness Your height, weight, and BMI should be checked at every exam. During your exam, your provider may ask you about: Depression and anxiety Diet and exercise Alcohol and tobacco use Safety issues, such as using seat belts, smoke detectors, and intimate partner violence Your medicines and risk for interactions SKIN SELF-EXAM Your provider may check your skin for signs of skin cancer, especially if you're at high risk, such as if you: Have had skin cancer before Have close relatives with skin cancer Have a weakened immune system OTHER SCREENING Talk with your provider about colon cancer screening if you have a strong family history of colon cancer or polyps, or if you have had inflammatory bowel disease or polyps yourself. Routine bone density screening of women under 40 is not recommended. Review Patient declined Mammogram: 01/11/24 Declined Pap Smear: 01/11/24 Patient declined Colonoscopy: 01/11/24 Patient declined Colon Cancer Screen Lab: 01/11/24 Patient declined Pneumococcal Vaccine: 01/11/24 Coding Level of Care Code Est Pt Prev Care 40-64y(11815) Diagnoses Diarrhea due to malabsorption K90.9; R19.7 Diarrhea type: due to malabsorption Alcohol dependence with alcohol-induced anxiety disorder F10.280 Substance use status: alcohol-induced anxiety disorder Chronic GERD K21.9 Laboratory exam ordered as part of routine general medical examination Z00.00 Hypertension, essential I10 Tobacco dependence due to cigarettes F17.210 TAWNYA (generalized anxiety disorder) F41.1 Moderate episode of recurrent major depressive disorder F33.1 Major depression episode severity: moderate Chronic anemia D64.9 Hypomagnesemia E83.42 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
[2024-01-11 09:20] VITALS: BP 98/58; PULSE 86; TEMP 36.9; O2SAT 98; BMI 17.5
== END 2024-01-11 10:04 | disposition home or self-care (01) ==
PROVIDERS: PCP Nurse Practitioner Family; Visit Provider Nurse Practitioner Family
DX: Z00.00 Encounter for general adult medical examination without abnormal findings (principal); F10.280 Alcohol dependence with alcohol-induced anxiety disorder; F33.1 Major depressive disorder, recurrent, moderate; Z23 Encounter for immunization; G62.1 Alcoholic polyneuropathy; N18.31 Chronic kidney disease, stage 3a; J43.1 Panlobular emphysema; F01.B4 Vascular dementia, moderate, with anxiety; R19.7 Diarrhea, unspecified; K90.9 Intestinal malabsorption, unspecified; K21.9 Gastro-esophageal reflux disease without esophagitis; I10 Essential (primary) hypertension
CPT/HCPCS: 1124F; 90471; 90715; 99396

== ENCOUNTER 2024-01-11 10:17 | Outpatient (REF) | payer OTHER, SELFPAY ==
[2024-01-11 11:52] LABS: Hematocrit 36.5 % (37.0-47.0); Hemoglobin 12.7 g/dl (12.0-16.0); Mean Corpuscular HGB Conc 34.8 g/dl (31.0-35.0); Mean Corpuscular Hemoglobin 34.8 pg (27.0-33.0); Mean Platelet Volume 11.1 fL (9.4-12.3); Platelet Count 238 X10*3/uL (160-400); Red Blood Count 3.65 X10*6/uL (4.20-5.50); Red Cell Distribution Width 13.6 % (11.0-16.0); White Blood Count 8.3 X10*3/uL (4.8-10.8)
[2024-01-11 12:04] LABS: Estimated Average Glucose 82 mg/dL; Hemoglobin A1c % 4.5 % (<6.0)
[2024-01-11 12:49] LABS: Alanine Aminotransferase 9 U/L (0-31); Albumin Level 4.5 g/dL (3.5-5.0); Alkaline Phosphatase 140 U/L (39-117); Anion Gap 20 (12-20); Aspartate Amino Transferase 19 U/L (5-31); Bilirubin Total 0.5 mg/dL (0.0-1.0); Blood Urea Nitrogen 9 mg/dL (9-16); Calcium 9.5 mg/dL (8.4-10.2); Carbon Dioxide 25 mmol/L (22-29); Chloride 99 mmol/L (96-108); Estimated Glomerular Filt Rate > 60; Glucose Random 80 mg/dL (60-115); Iron 111 mcg/dL (30-160); Magnesium 1.5 mg/dL (1.6-2.6); Percent Iron Saturation 46 % (15-50); Phosphorus 3.5 mg/dL (2.7-4.5); Potassium 3.6 mmol/L (3.3-5.1); Sodium 140 mmol/L (135-145); Total Iron Binding Capacity 243 mcg/dL (228-428); Total Protein 7.6 g/dL (6.5-8.0); Unsaturated Iron Binding 132 ug/dL
[2024-01-11 12:56] LABS: HBS Num1 0.09 mIU/mL (0-7.99); HBc Num1 0.16 S/CO (0.00-0.79); HBsAGNum1 0.31 S/CO (0.00-0.99); Hepatitis A Antibody IgM 0.17 Index (0-0.79); Hepatitis B Core Antibody Nonreactive (Nonreactive); Hepatitis B Surface Antigen Negative (Negative); ~HepC Num1 0.16 S/CO (0.00-0.79); ~Hepatitis A Antibody IgM Nonreactive (Nonreactive); ~Hepatitis B Surface Antibody NONREACTIVE (Nonreactive); ~Hepatitis C Antibody Nonreactive (Nonreactive)
[2024-01-11 12:57] LABS: Ferritin 433 ng/mL (10-250); TSH reflex Free T4 0.85 uIU/mL (0.32-4.0)
[2024-01-11 13:09] LABS: Vitamin B12 717 pg/mL (200-900)
[2024-01-14 22:13] LABS: LDL Cholesterol Direct 58 mg/dL (<100)
== END 2024-01-11 10:18 | disposition home or self-care (01) ==
LOC: HO.WFDLDS 10:17
PROVIDERS: Visit Provider Nurse Practitioner Family
DX: Z00.00 Encounter for general adult medical examination without abnormal findings (principal)
CPT/HCPCS: 36415; 80053; 82607; 82728; 82746; 83036; 83540; 83721; 83735; 84100; 84443; 85027; 86704; 86706; 86709; 86803; 87340

== ENCOUNTER 2024-08-21 12:53 | Outpatient (AMB) | payer OTHER, SELFPAY ==
--- NOTE | 2024-08-21 12:58 | A.OFFPC_ITS ---
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: No Allergies Sulfa (Sulfonamide Antibiotics) Allergy (Intermediate, Verified 08/21/24 13:34) Redness of Skin rash Medication List - Last Reconciled 08/21/24 by Sangita Carbajal, BIOMEDICAL SERVICE ENGINEER- albuterol sulfate 90 mcg/actuation (Ventolin HFA) 2 puffs PO QID PRN cholecalciferol (vitamin D3) 50 mcg PO DAILY duloxetine 20 mg PO BID folic acid 0.4 mg PO DAILY loratadine 10 mg PO DAILY magnesium oxide 500 mg PO BID omeprazole 20 mg PO DAILY umeclidinium-vilanterol 62.5-25 mcg/actuation (Anoro Ellipta) 1 inh inhalation DAILY valsartan 40 mg PO BID 3 months Tobacco use date assessed: 08/21/24 Dental Screening Dental Screen Date: 08/21/24 Did you have a dental visit in the last 12 months?: Yes Did you have a dental problem in the last 6 months where you did not have access to dental care?: No Was dental information given to patient?: Patient has dentist HPI HPI Comments History of Present Illness Details Her healthcare proxy is invoked given her vascular dementia. Andrew Dupont HCP 1 (works at [facility] [place]) Prisca Dupont alternative 64 y/o female with hypertension, alcoho l dependence, tobacco dependence, generalized anxiety disorder, MDD, anemia, GERD, Hypomagnesium, peripheral neuropathy, multiple lung nodules, COPD, vascular dementia (head ct 04/25/23 diffuse volume loss , subcortical white matter c/w microvasc ischemia), CKD 3, CAD (mild of the aorta noted on CTA of the chest 09/28/21, moderately severe aortoiliac atherosclerotic calcification Abd pelvis ct 04/24/23), calcified granuloma of liver, benign simple bilat renal cysts (no fu required Abd pelvis ct 04/24/23), anasarca, Spinal DJD,chronic sinusitis Status post ORIF left hip 2022, hysterectomy Living with boyfriend, Frank and grandson who is [employer] Health Maintenance: ? Colon an EGD 04/26/2023 at [facility], repeat colonoscopy 2027 ? Mammo declined ? DEXA declined ? PAP ? Tdap 12/2023 Specialists: GI Hematology - not active currently Orthopedics Nephrology never saw them per report Neurology states appt 2 weeks ago @ [facility] [place], i cannot see this record. Lung cancer screening - 2022 no showed at [facility], declined future f/u Urology group was a [place] per records no showed her initial consult; states saw someone at [facility] but has not ff'd up since History of Present Illness Dtr andrew HCP1 here - The patient is a 64-year-old female pr esenting for a routine follow-up for chronic conditions. - Essential hypertension, controlled wit h medications. - Continued alcohol use, noted for atiya ochoa. - Cont to smoke - The patient exhibits anxiety and depre ssion, managed with duloxetine, and reports increased anxiety. Not sleeping well d/t anxiety. declined counseling feels it would increase her anxiety - Gastroesophageal reflux disease under management with a proton pump inhibitor. - Peripheral neuropathy causing pain in hands and feet. - Previously detected lung nodule relate d to chronic obstructive pulmonary disease, COPD, monitored over time. breathing is stable on current inhalers. - Cognitive impairment due to vascular d ementia - HCP activated today. GUERLINE reviewed and completed, full DNR/DNI Review of Systems - Neurological: Reports anxiety, increas ed shaking. - Musculoskeletal: Reports chronic pain impacting sleep. - Respiratory: No shortness of breath re ported. - Gastrointestinal: No new gastrointesti nal symptoms reported. - General: Reports increased anxiety, ne rvousness. Exam: Awake alert accompanied by dtr andrew, chronically ill appearing, sitting in wheel chair scleras mildly icteric bilat RRR LS CTAB, dim throughout Abd soft, tender over RUQ and LLQ, examined in wheel chair No edema BLE, skin intact, muscle wasting apparent 6 CIT done 04/14 Pleasant, anxious Discussion Notes I reviewed the patient's concerns about anxiety and insomnia. We discussed the possibility of using clonidine to address both anxiety and hypertension while facilitating sleep. I addressed her misunderstanding about resuscitative efforts noting the DNR status and reiterated the use of the healthcare proxy for decision-making. We reviewed the safety and potential side effects of all medications including clonidine. I highlighted continuing existing medications and the supportive role of family in managing her care. Follow-up was initiated for ongoing management, and I explained that all this was observed for safety and minimization of unnecessary hospital visits. - Discussed importance of safety, given recent changes in living circumstances. - Discussed medication management for an xiety and hypertension. - Reinforced the importance of family puente pport and involvement in medical decisions, with the activation of a healthcare proxy. Assessment and Plan 1. Essential Hypertension: Continuing va lsartan with no adjustments. 2. Alcohol Dependence: Reduced intake, n o immediate changes. 3. Tobacco Dependence: Discussion held, but no cessation plan established. 4. Generalized Anxiety Disorder: Commenc ing clonidine as an intervention. 5. Major Depressive Disorder: Continued duloxetine with current benefits r antoinettewed. 6. Anemia: Awaiting labs for further ronald dance. make appt w/ [place] [facility] [place] 7. GERD: Continues omeprazole with maint ained efficacy. 8. Peripheral Neuropathy: Trial of OTC Nervive advised. 9. Lung Nodule: Stable COPD-related lung findings. declined further fu 10. COPD: Ongoing current intervention w ithout alteration. 11. Vascular Dementia: Reinforced proxy- related guidance. Patient Instructions - Continue using valsartan, omeprazole, and duloxetine as prescribed. - Begin taking clonidine as directed for anxiety and sleep. - Utilize Nervive as an option for leora ropathic pain. - Monitor alcohol use and provide self-s upport to reduce consumption. - Assess cessation for smoking and consi himanshu available aids. - Attend all prescribed follow-ups and c onduct labs as discussed. - Talk to family about action plan using healthcare proxy when needed. - labs today - 6 weeks 30 min fu clonidine start, anx iety insomnia Consent The patient provided consent for the introduction of clonidine, with detailed verbal and written explanations of potential side effects, mechanisms of action, and its interactions with existing medications. The discussion was noted regarding the ongoing use of healthcare proxy, with implications for legal documents signed by family members to better facilitate decisions. The patient and her daughter agreed and signed, demonstrating understanding of the management pathways described and forthcoming interventions based on gathering data. Patient was informed and verbally consented to the use of an ambient scribe for clinic note documentation during this visit. Total time spent caring for the patient today was 49 minutes. This includes time spent before the visit reviewing the chart, time spent during the visit, and time spent after the visit on documentation, reviewing laboratory results, diagnostic imaging, medications, performing a medically necessary evaluation, counseling on diagnoses, care coordination, ordering appropriate tests, ordering appropriate medications, review of tests performed by other providers, reporting test results with the patient, communication with other healthcare providers. [facility] Medical History (Updated 08/21/24 @ 17:18 by Sangita Carbajal [facility]) Alcohol withdrawal Anxiety Arthritis Asthma Chronic back pain COPD (chronic obstructive pulmonary disease) Depression Hyperkalemia Iron deficiency anemia Multiple nodules of lung Peripheral neuropathy Right arm fracture Vascular dementia Weakness Weakness of left side of body Surgical History H/O: hysterectomy History of hip surgery Hx of colonoscopy Previous back surgery Family History Mother Breast cancer Father Lung cancer Paternal Grandfather Mellette disease Social History (Updated 01/11/24 @ 09:22 by Katty Cruz CMA) Household Members: Friend(s) Housing: Other Housing Other:: trailer Do you presently have visiting nurse or other home services: No Alcohol intake: current Alcohol intake frequency: 3 or more drinks per day Alcohol type: hard liquor Patient Tobacco Use Status: Current everyday Tobacco user Tobacco use type: Cigarette Cigarette Packs Per Day: 0.5 Years Smoked: 40 e-Cigarette/Vaping Use: Never Used Second Hand Smoke Exposure: Yes Substance Use Type: Marijuana service: No Current occupational status: unemployed Current occupational exposures/hazards: No Cognitive needs: Yes (walker, wheelchair) Hearing needs: No Vision needs: Yes (glasses) Questionnaire PHQ-9 Over the last 2 weeks, how often have you been bothered by any of the following problems? 1. Little interest or pleasure in doing things: several days 2. Feeling down, depressed, or hopeless: nearly every day 3. Trouble falling or staying asleep, or sleeping too much: several days 4. Feeling tired or having little energy: several days 5. Poor appetite or overeating: not at all 6. Feeling bad about yourself - or that you are a failure or have let yourself or your family down: nearly every day 7. Trouble concentrating on things, such as reading the newspaper or watching television: more than half the days 8. Moving or speaking so slowly that other people could have noticed. Or the opposite - being so fidgety or restless that you have been moving around a lot more than usual: not at all 9. Thoughts that you would be better off or of hurting yourself in some way: more than half the days Total score: 13 Depression Screening Interpretation: Positive Depression Screening Follow-up: Existing condition and In treatment Depression Screening Done: Yes 99099 - PHQ-9 Billing: Yes Source: Developed by Drs. Riley Banuelos, Clementine Leblanc, Jose J Benítez and colleagues, with an educational xiang from [employer]. Thrive Questionnaire Date Thrive assessed: 08/21/24 I am a: Patient What is your living situation today?: I have a steady place to live Within the past 12 months, did the food you bought not last and you didn't have the money to get more?: Never true Within the past 12 months, did you worry whether your food would run out before you got money to buy more?: Never true Do you have trouble paying for medicines?: No Do you have trouble getting transportation to medical appointments?: No Do you have trouble paying your heating and electricity bill?: No Do you have trouble taking care of your child, family member or friend?: I choose not to answer this question Do you have trouble with day-to-day activities such as bathing, preparing meals, shopping, managing finances, etc.?: Yes Are you currently unemployed and looking for a job?: No Are you interested in more education?: No Please select the resources that you would like help with: None Currently or been in a relationship where the following occur: No concerns reported THRIVE Score: 0 AUDIT C Alcohol Use Questionnaire (AUDIT-C) 1. How often do you have a drink containing alcohol?: 4 or more times a week 2. How many drinks containing alcohol do you have on a typical day when you are drinking?: 3 or 4 3. How often do you have six or more drinks on one occasion?: Daily or almost daily Total Score: 9 Score Reviewed/Action Taken: Yes TAWNYA-7 AMB Questionnaire TAWNYA-7 Date TAWNYA - 7 assessed: 08/21/24 Feeling nervous, anxious, or on edge: 3 = Nearly every day Not being able to stop or control worryin = Nearly every day Worrying too much about different things: 3 = Nearly every day Trouble relaxin = Nearly every day Being so restless that it is hard to sit still: 3 = Nearly every day Becoming easily annoyed or irritable: 3 = Nearly every day Feeling afraid as if something awful might happen: 3 = Nearly every day Total TAWNYA-7 score (0-4 normal; 5-9 mild; 10-14 moderate; 15-21 severe): 21 Source: Developed by Drs. Riley Banuelos, Clementine Leblanc, Jose J Benítez and colleagues, with an educational xiang from [employer]. TAWNYA-7 Assessment Billing TAWNYA-7 Assessment Tool: TAWNYA-7 Assessment 96535 Physical exam (Primary Care) Vital Signs: Last Vital Signs Temp 97.1 F 08/21/24 13:07 Pulse 105 H 08/21/24 13:07 Resp 12 08/21/24 13:07 BP 118/68 08/21/24 13:07 Pulse Ox 96 08/21/24 13:07 Oxygen Delivery Method Room Air 08/21/24 13:07 BMI result Body Mass Index 18.0 Tobacco/Smoking Status: Tobacco use Status Tobacco use date assessed 08/21/24 08/21/24 12:59 Patient Tobacco Use Status Current everyday Tobacco 08/21/24 12:59 Tobacco use type Cigarette 08/21/24 12:59 e-Cigarette/Vaping Use Never Used 08/21/24 12:59 Are you ready to quit: No Tobacco cessation counseling provided: Yes Items discussed: Nicotine replacement, QuitWorks and Other Relapse Prevention: discussed the importance of a supportive environment, discussed extending NRT, discussed negative mood or depression after quitting, weight gain after smoking is common and discussed dietary, exercise and/or lifestyle changes Number of minutes spent counselin CPT code: 06559 - 4-10 Minutes PHQ-9: PHQ-9 Score PHQ-9: Total score 13 08/21/24 13:39 Depression Screening Interpretation: Positive Depression Screening Follow-up: Existing condition and In treatment Thrive Assessment: Date of Thrive Assessment Date Thrive assessed 08/21/24 08/21/24 12:59 Currently or been in a relationship where the following occur: No concerns reported Office Procedures Advance Care Planning Advance Care Planning discussion: Completed/Scanned Date of discussion: 08/21/24 Who was present: andrew and pt Forms completed: Health Care Proxy, MOLST and Comfort care/DNR Time spent: 1-15 minutes, on File Actual minutes spent: 15 Coding Level of Care Code Est Pt Level 5 (25806) Complex EM visit Add On G2211 Diagnoses DNR (do not resuscitate) Z66 DNI (do not intubate) Z78.9 Panlobular emphysema J43.1 COPD type: emphysema Emphysema type: panlobular Hypertension, essential I10 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 Peripheral neuropathy type: polyneuropathy, alcohol-induced Alcohol dependence with alcohol-induced anxiety disorder F10.280 Substance use status: alcohol-induced anxiety disorder Hypomagnesemia E83.42 Protein-calorie malnutrition, unspecified severity E46 Protein-calorie malnutrition severity: unspecified severity Moderate vascular dementia with anxiety F01.B4 Dementia behavioral or psychological symptom: with anxiety Dementia severity: moderate Dementia type: vascular dementia TAWNYA (generalized anxiety disorder) F41.1 Moderate episode of recurrent major depressive disorder F33.1 Major depression episode severity: moderate Stage 3a chronic kidney disease N18.31 Chronic kidney disease stage 3 subtype: stage 3a (GFR 45-59) Patient incapable of making informed decisions Z78.9 Tobacco dependence due to cigarettes F17.210 Medical orders for life-sustaining treatment (MOLST) form in chart Z78.9 Encounter for brief counseling about health care proxy document Z71.89 CPT Codes Advance Care Planning - Time spent: 1-15 minutes, on File ([id number]) Additional Codes TAWNYA-7 Assessment Billing - TAWNYA-7 Assessment Tool: TAWNYA-7 Assessment 94076 ([id number]) PHQ-9 - 72176 - PHQ-9 Billing: Yes ([id number]) Vital Signs *Quality* - CPT code: 43913 - 4-10 Minutes ([id number]) Assessment & Plan Assessment & Plan (1) DNR (do not resuscitate): Code(s): Z66 - Do not resuscitate Category: Medical (2) DNI (do not intubate): Code(s): Z78.9 - Other specified health status Category: Medical (3) COPD (chronic obstructive pulmonary disease): Code(s): J44.9 - Chronic obstructive pulmonary disease, unspecified Category: Medical Qualifiers: COPD type: emphysema Emphysema type: panlobular Qualified Code(s): J43.1 - Panlobular emphysema (4) Hypertension, essential: Code(s): I10 - Essential (primary) hypertension Category: Medical (5) Peripheral neuropathy: Code(s): G62.9 - Polyneuropathy, unspecified Category: Medical Qualifiers: Peripheral neuropathy type: polyneuropathy, alcohol-induced Qualified Code(s): G62.1 - Alcoholic polyneuropathy (6) Alcohol dependence: Code(s): F10.20 - Alcohol dependence, uncomplicated Category: Medical Qualifiers: Substance use status: alcohol-induced anxiety disorder Qualified Code(s): F10.280 - Alcohol dependence with alcohol-induced anxiety disorder (7) Hypomagnesemia: Code(s): E83.42 - Hypomagnesemia Category: Medical (8) Protein calorie malnutrition: Code(s): E46 - Unspecified protein-calorie malnutrition Category: Medical Qualifiers: Protein-calorie malnutrition severity: unspecified severity Qualified Code(s): E46 - Unspecified protein-calorie malnutrition (9) Dementia: Comment: (head ct 04/25/23 diffuse volume loss , subcortical white matter c/w microvasc ischemia), Code(s): F03.90 - Unspecified dementia, unspecified severity, without behavioral disturbance, psychotic disturbance, mood disturbance, and anxiety Category: Medical Qualifiers: Dementia behavioral or psychological symptom: with anxiety Dementia severity: moderate Dementia type: vascular dementia Qualified Code(s): F01.B4 - Vascular dementia, moderate, with anxiety (10) TAWNYA (generalized anxiety disorder): Code(s): F41.1 - Generalized anxiety disorder Category: Medical (11) MDD (major depressive disorder), recurrent episode: Code(s): F33.9 - Major depressive disorder, recurrent, unspecified Category: Medical Qualifiers: Major depression episode severity: moderate Qualified Code(s): F33.1 - Major depressive disorder, recurrent, moderate (12) CKD (chronic kidney disease) stage 3, GFR 30-59 ml/min: Code(s): N18.30 - Chronic kidney disease, stage 3 unspecified Category: Medical Qualifiers: Chronic kidney disease stage 3 subtype: stage 3a (GFR 45-59) Qualified Code(s): N18.31 - Chronic kidney disease, stage 3a (13) Patient incapable of making informed decisions: Code(s): Z78.9 - Other specified health status Category: Medical (14) Tobacco dependence due to cigarettes: Code(s): F17.210 - Nicotine dependence, cigarettes, uncomplicated Category: Medical (15) Medical orders for life-sustaining treatment (MOLST) form in chart: Code(s): Z78.9 - Other specified health status Category: Medical (16) Encounter for brief counseling about health care proxy document: Code(s): Z71.89 - Other specified counseling Category: Medical Plan . Orders: Orders AMB Urinalysis Dipstick 10/11/22 E46 - Unspecified protein-calorie malnutrition, E83.42 - Hypomagnesemia, F01.B4 - Vascular dementia, moderate, with anxiety, F10.280 - Alcohol dependence with alcohol-induced anxiety disorder, F33.1 - Major depressive disorder, recurrent, moderate, F41.1 - Generalized anxiety disorder, G62.1 - Alcoholic polyneuropathy, I10 - Essential (primary) hypertension, J43.1 - Panlobular emphysema, N18.31 - Chronic kidney disease, stage 3a, Z13.9 - Encounter for screening, unspecified Complete Blood Count no Diff Today E46 - Unspecified protein-calorie malnutrition, E83.42 - Hypomagnesemia, F01.B4 - Vascular dementia, moderate, with anxiety, F10.280 - Alcohol dependence with alcohol-induced anxiety disorder, F33.1 - Major depressive disorder, recurrent, moderate, F41.1 - Generalized anxiety disorder, G62.1 - Alcoholic polyneuropathy, I10 - Essential (primary) hypertension, J43.1 - Panlobular emphysema, N18.31 - Chronic kidney disease, stage 3a IRON PROFILE Today E46 - Unspecified protein-calorie malnutrition, E83.42 - Hypomagnesemia, F01.B4 - Vascular dementia, moderate, with anxiety, F10.280 - Alcohol dependence with alcohol-induced anxiety disorder, F33.1 - Major depressive disorder, recurrent, moderate, F41.1 - Generalized anxiety disorder, G62.1 - Alcoholic polyneuropathy, I10 - Essential (primary) hypertension, J43.1 - Panlobular emphysema, N18.31 - Chronic kidney disease, stage 3a Vitamin B12 and Folate Today E46 - Unspecified protein-calorie malnutrition, E83.42 - Hypomagnesemia, F01.B4 - Vascular dementia, moderate, with anxiety, F10.280 - Alcohol dependence with alcohol-induced anxiety disorder, F33.1 - Major depressive disorder, recurrent, moderate, F41.1 - Generalized anxiety disorder, G62.1 - Alcoholic polyneuropathy, I10 - Essential (primary) hypertension, J43.1 - Panlobular emphysema, N18.31 - Chronic kidney disease, stage 3a Magnesium Today E46 - Unspecified protein-calorie malnutrition, E83.42 - Hypomagnesemia, F01.B4 - Vascular dementia, moderate, with anxiety, F10.280 - Alcohol dependence with alcohol-induced anxiety disorder, F33.1 - Major depr essive disorder, recurrent, moderate, F41.1 - Generalized anxiety disorder, G62.1 - Alcoholic polyneuropathy, I10 - Essential (primary) hypertension, J43.1 - Panlobular emphysema, N18.31 - Chronic kidney disease, stage 3a Comprehensive Met. Panel Today E46 - Unspecified protein-calorie malnutrition, E83.42 - Hypomagnesemia, F01.B4 - Vascular dementia, moderate, with anxiety, F10.280 - Alcohol dependence with alcohol-induced anxiety disorder, F33.1 - Major depressive disorder, recurrent, moderate, F41.1 - Generalized anxiety disorder, G62.1 - Alcoholic polyneuropathy, I10 - Essential (primary) hypertension, J43.1 - Panlobular emphysema, N18.31 - Chronic kidney disease, stage 3a Lipid Panel Today E46 - Unspecified protein-calorie malnutrition, E83.42 - Hypomagnesemia, F01.B4 - Vascular dementia, moderate, with anxiety, F10.280 - Alcohol dependence with alcohol-induced anxiety disorder, F33.1 - Major depressive disorder, recurrent, moderate, F41.1 - Generalized anxiety disorder, G62.1 - Alcoholic polyneuropathy, I10 - Essential (primary) hypertension, J43.1 - Panlobular emphysema, N18.31 - Chronic kidney disease, stage 3a Ferritin Today E46 - Unspecified protein-calorie malnutrition, E83.42 - Hypomagnesemia, F01.B4 - Vascular dementia, moderate, with anxiety, F10.280 - Alcohol dependence with alcohol-induced anxiety disorder, F33.1 - Major depressive disorder, recurrent, moderate, F41.1 - Generalized anxiety disorder, G62.1 - Alcoholic polyneuropathy, I10 - Essential (primary) hypertension, J43.1 - Panlobular emphysema, N18.31 - Chronic kidney disease, stage 3a Medications: New clonidine HCl 0.1 mg PO BEDTIME 30 tabs 1RF
[2024-08-21 13:07] VITALS: BP 118/68; PULSE 105; RESP 12; TEMP 36.2; O2SAT 96; BMI 18.0
--- OUTSIDE RECORDS SUMMARY | 2024-08-21 15:31 | XMS_ITS | Patient Health Record ---
Author Organization [facility], [facility] Address [address] [place] [address] [phone] Care Team Providers Care Consulting Engineer Name Role Phone ARA MONK Primary Care Provider Daja Cutler Unavailable [phone] REASON FOR REFERRAL No Information PLAN OF TREATMENT No Information Insurance Providers Payer Name Payer Address Payer Phone Subscriber Number Group Number Insured Name Patient Relationship to Insured Coverage Start Date Coverage End Date [facility] [address] [place] [address] [phone] [id number] LIO CRAMER Self - patient is the insured
--- OUTSIDE RECORDS SUMMARY | 2024-08-21 15:31 | XMS_ITS ---
Author Organization [facility], [facility] Address [address], [place] [id number] Care Team Providers Care Flitch Hanger Name Role Phone ARA MONK Primary Care Provider Daja Cutler [phone] REASON FOR VISIT New Patient Encounters Encounter Location Date Provider Diagnosis [facility], [facility] [address], [place] [phone] 04/04/2023 Daja Cutler PLAN OF TREATMENT No Information Progress Notes * LIANNE CRAMERADOB: 2 (64 yo F)Acc No.[id number]:04/04/2023 Progress Notes Patient:??LOI CRAMER Provider:??Daja Cutler DNP :1960?Age:63 Y?Sex:Fe male Date:04/04/2023 Phone: Address:[address] [place] [address], [place] [address] [place] [address] Pcp:ARA MONK Subjective: * Chief Complaints: * ?1. New Patient. * Medical History:?? Objective: Assessment: Plan: * Treatment: Care Plan: * Problems:?? * Billing Information: * Visit Code:?? * Procedure Codes:?? * Sign off status: Pending * Provider:??Daja Cutler DNP Date:??
== END 2024-08-21 13:56 | disposition home or self-care (01) ==
PROVIDERS: PCP Nurse Practitioner Family; Visit Provider Nurse Practitioner Family
DX: Z66 Do not resuscitate (principal); Z78.9 Other specified health status; J43.1 Panlobular emphysema; I10 Essential (primary) hypertension; G62.1 Alcoholic polyneuropathy; F10.280 Alcohol dependence with alcohol-induced anxiety disorder; E83.42 Hypomagnesemia; E46 Unspecified protein-calorie malnutrition; F01.B4 Vascular dementia, moderate, with anxiety; F41.1 Generalized anxiety disorder; F33.1 Major depressive disorder, recurrent, moderate; N18.31 Chronic kidney disease, stage 3a; F17.210 Nicotine dependence, cigarettes, uncomplicated; Z71.89 Other specified counseling

== ENCOUNTER → 2024-08-21 12:53 | Outpatient (BNVA) | payer OTHER, SELFPAY | PROVIDERS: PCP Nurse Practitioner Family; Visit Provider Nurse Practitioner Family | DX: J43.1 Panlobular emphysema (principal); I12.9 Hypertensive chronic kidney disease with stage 1 through stage 4 chronic kidney disease, or unspecified chronic kidney disease; N18.31 Chronic kidney disease, stage 3a; G62.1 Alcoholic polyneuropathy; F10.280 Alcohol dependence with alcohol-induced anxiety disorder; E83.42 Hypomagnesemia; E46 Unspecified protein-calorie malnutrition; Z68.1 Body mass index [BMI] 19.9 or less, adult; F01.B4 Vascular dementia, moderate, with anxiety; F41.1 Generalized anxiety disorder; F33.1 Major depressive disorder, recurrent, moderate; F17.210 Nicotine dependence, cigarettes, uncomplicated; Z71.89 Other specified counseling; Z78.9 Other specified health status; Z66 Do not resuscitate; Z71.6 Tobacco abuse counseling; Z71.3 Dietary counseling and surveillance | CPT/HCPCS: 96127; 99212 ==

== ENCOUNTER 2024-08-21 14:00 | Outpatient (REF) | payer OTHER, SELFPAY ==
[2024-08-21 17:59] LABS: Hematocrit 43.8 % (37.0-47.0); Hemoglobin 14.9 g/dl (12.0-16.0); Mean Corpuscular Hemoglobin 37.1 pg (27.0-33.0); Mean Platelet Volume 11.7 fL (9.4-12.3); Platelet Count 166 X10*3/uL (160-400); Red Blood Count 4.02 X10*6/uL (4.20-5.50); Red Cell Distribution Width 14.6 % (11.0-16.0); White Blood Count 7.5 X10*3/uL (4.8-10.8)
[2024-08-21 18:38] LABS: Ferritin 835 ng/mL (10-250)
[2024-08-21 18:41] LABS: Alanine Aminotransferase 53 U/L (0-31); Albumin Level 3.6 g/dL (3.5-5.0); Alkaline Phosphatase 117 U/L (39-117); Anion Gap 16 (12-20); Aspartate Amino Transferase 210 U/L (5-31); Bilirubin Total 1.1 mg/dL (0.0-1.0); Blood Urea Nitrogen 7 mg/dL (9-16); Calcium 8.3 mg/dL (8.4-10.2); Carbon Dioxide 35 mmol/L (22-29); Chloride 95 mmol/L (96-108); Cholesterol 135 mg/dL (<200); Estimated Glomerular Filt Rate > 60; Glucose Random 115 mg/dL (60-115); HDL Cholesterol 64 mg/dL (>40); Iron 133 mcg/dL (30-160); LDL Cholesterol Calculated 55 mg/dL (<100); Magnesium 1.2 mg/dL (1.6-2.6); Percent Iron Saturation 56 % (15-50); Potassium 2.8 mmol/L (3.3-5.1); Sodium 143 mmol/L (135-145); Total Iron Binding Capacity 237 mcg/dL (228-428); Total Protein 7.1 g/dL (6.5-8.0); Triglycerides 83 mg/dL (<150); Unsaturated Iron Binding 104 ug/dL
[2024-08-21 19:10] LABS: Vitamin B12 689 pg/mL (200-900)
== END 2024-08-21 14:01 | disposition home or self-care (01) ==
LOC: HO.WFDLDS 14:00
PROVIDERS: Visit Provider Nurse Practitioner Family
DX: I12.9 Hypertensive chronic kidney disease with stage 1 through stage 4 chronic kidney disease, or unspecified chronic kidney disease (principal); N18.31 Chronic kidney disease, stage 3a; F10.280 Alcohol dependence with alcohol-induced anxiety disorder; J43.1 Panlobular emphysema; F01.B4 Vascular dementia, moderate, with anxiety; F41.1 Generalized anxiety disorder; E83.42 Hypomagnesemia; F33.1 Major depressive disorder, recurrent, moderate; G62.1 Alcoholic polyneuropathy; E46 Unspecified protein-calorie malnutrition
CPT/HCPCS: 36415; 80053; 80061; 82607; 82728; 82746; 83540; 83735; 85027

== ENCOUNTER 2024-10-03 10:24 | Outpatient (AMB) | payer OTHER, SELFPAY ==
--- NOTE | 2024-10-03 10:30 | A.OFFPC_ITS ---
Vital Signs 10/03/24 10:36 Height 5 ft 4 in Weight 124 lb 4 oz BMI 21.3 BP 98/68 Blood Pressure Location Rt brachial Position Sitting Respiration 12 Pulse 76 Pulse Source Pulse Oximeter Temp 97.6 F Temp Source Oral Pulse Oximetry (%) 96 Oxygen Delivery Method Room Air Intake Visit Reasons: fu clonidine start, anxiety insomnia Intake Note: Follow up. Patient also c/o numbing of hands and feet Bin Tripper Operator Required: No Allergies Sulfa (Sulfonamide Antibiotics) Allergy (Intermediate, Verified 10/03/24 10:31) Redness of Skin rash Medication List - Last Reconciled 10/03/24 by Sangita Carbajal, CUTTING MACHINE OPERATOR HELPER-BC albuterol sulfate 90 mcg/actuation (Ventolin HFA) 2 puffs PO QID PRN cholecalciferol (vitamin D3) 50 mcg PO DAILY clonidine HCl 0.1 mg PO BEDTIME duloxetine 20 mg PO BID folic acid 0.4 mg PO DAILY loratadine 10 mg PO DAILY magnesium oxide 500 mg PO BID omeprazole 20 mg PO DAILY potassium chloride ER (Klor-Con M) 20 mEq PO BID umeclidinium-vilanterol 62.5-25 mcg/actuation (Anoro Ellipta) 1 inh inhalation DAILY valsartan 40 mg PO BID 3 months Tobacco use date assessed: 08/21/24 Dental Screening Dental Screen Date: 08/21/24 HPI HPI Comments History of Present Illness Details Her healthcare proxy is invoked given her vascular dementia. Andrew Cresencio HCP 1 ([place] [facility] [place] Prisca Dupont alternative 64 y/o female with hypertension, alcoho l dependence, tobacco dependence, generalized anxiety disorder, MDD, anemia, GERD, Hypomagnesium, peripheral neuropathy, multiple lung nodules, COPD, vascular dementia (head ct 04/25/23 diffuse volume loss , subcortical white matter c/w microvasc ischemia), CKD 3, CAD (mild of the aorta noted on CTA of the chest 09/28/21, moderately severe aortoiliac atherosclerotic calcification Abd pelvis ct 04/24/23), calcified granuloma of liver, benign simple bilat renal cysts (no fu required Abd pelvis ct 04/24/23), anasarca, Spinal DJD,chronic sinusitis Status post ORIF left hip 2022, hysterectomy Living with boyfriend, Frnak and grandson who is BUCK SWAMPER Health Maintenance: ? Colon an EGD 04/26/2023 at [facility], repeat colonoscopy 2027 ? Mammo declined ? DEXA declined ? PAP ? Tdap 12/2023 Specialists: GI Hematology - not active currently Orthopedics Nephrology never saw them per report Neurology states appt 2 [place] ago [place] [facility] [place] this record. Lung cancer screening - 2022 no showed at [facility], declined future f/u Urology group was a [place] per records no showed her initial consult; states saw someone at [facility] but has not ff'd up since History of Present Illness Dtr andrew HCP1 here - The patient is a 64-year-old female pr esenting for a follow-up on clonidine for anxiety, hypertension, and insomnia, while addressing neuropathic symptoms - Anxiety remains a significant issue, w ith symptoms mostly unchanged on the current clonidine regimen. Anxiety is exacerbated by medical appointments. - Despite starting clonidine, insomnia p ersists with morning awakenings around 6:00 AM, and ongoing restless sleep. - The patient experiences substantial ne uropathy, described as persistent tingling and numbness in her extremities, which has progressed since reducing alcohol consumption. On b12 supplement. - Lab results previously noted severe hy pokalemia, she did take KCl and was supposed to have labs repeated but did not get them done yet. she will get them today before she leaves. Denies chest pain or palpitations. Exam: Awake alert accompanied by dtr andrew, chronically ill appearing, sitting in wheel chair scleras mildly icteric bilat RRR LS CTAB, dim throughout Abd soft, tender over RUQ and LLQ, examined in wheel chair No edema BLE, skin intact, muscle wasting apparent 6 CIT done 04/14 Pleasant, anxious Results - Labs: Previous potassium level of 2.8 mmol/L as of August 21. Today: Test Result Flag Referen ce Potassium 5.4 # H 3.3-5.1 mmol/L Magnesiu m 1.8 1.6-2.6 mg/dL Discussion During this visit, we thoroughly discussed the current treatment regime with clonidine for anxiety and insomnia, and its lack of efficacy for neuropathic symptoms. The potential addition of lamotrigine was explored, clarifying its off-label application for neuropathic pain alongside mood stabilization benefits. The medication's rare risk of a rash, including potential Art- Moiz syndrome, was reviewed, with explicit instructions to report any skin changes immediately. Follow-up labs for potassium were advised, given previous hypokalemia, and it was proposed to monitor electrolytes due to lifestyle changes related to reduced alcohol use. A revisit in eight weeks was suggested to evaluate the response to potential new medication and ongoing symptoms. A&P 1. Essential Hypertension Clonidine management is maintained, given effective blood pressure control & some improvement in insomnia 2. Generalized Anxiety Disorder Anxiety persists under clonidine, hence a trial of lamotrigine is considered. The patient was counseled about the ramifications, including mood stabilization potential and side effects like rash risks. 3. Peripheral Neuropathy The patient's neuropathic symptoms warrant exploration of lamotrigine for potential relief. Education was provided on monitoring for adverse effects like rash. 5. Alcohol Use Disorder: cessation edu p rovided Plan: - Continue taking clonidine as prescribe d. - Start lamotrigine as instructed, and r eport any skin changes immediately. 12.5mg po QD x 2 weeks then 25 mg po QD - Complete lab tests today - done. KCL h igher end of normal; hydrate ensure no extra KCl supplement, repeat labs. - Reduce alcohol and maintain hydration to support electrolytes. - Follow up in eight weeks or sooner if symptoms worsen. Consent Patient was informed and verbally consented to the use of an ambient scribe for clinic note documentation during this visit. Total time spent caring for the patient today was 41 minutes. This includes time spent before the visit reviewing the chart, time spent during the visit, and time spent after the visit on documentation, reviewing laboratory results, diagnostic imaging, medications, performing a medically necessary evaluation, counseling on diagnoses, care coordination, ordering appropriate tests, ordering appropriate medications, review of tests performed by other providers, reporting test results with the patient, communication with other healthcare providers. [facility] Medical History (Updated 10/03/24 @ 15:09 by Sangita Carbajal, BAL-CYNDIE) Alcohol withdrawal Anxiety Arthritis Asthma Chronic back pain COPD (chronic obstructive pulmonary disease) Depression Hyperkalemia Hypomagnesemia Iron deficiency anemia Multiple nodules of lung Peripheral neuropathy Right arm fracture Vascular dementia Weakness Weakness of left side of body Surgical History (Updated 08/29/24 @ 15:18 by Sangita Carbajal, BAL-BC) Colon cancer screening declined (~2024) H/O: hysterectomy History of hip surgery Hx of colonoscopy (~2012) Mammogram declined (~2024) Previous back surgery Family History Mother Breast cancer Father Lung cancer Paternal Grandfather Crowley disease Social History (Updated 01/11/24 @ 09:22 by Katty Cruz CMA) Household Members: Friend(s) Housing: Other Housing Other:: trailer Do you presently have visiting nurse or other home services: No Alcohol intake: current Alcohol intake frequency: 3 or more drinks per day Alcohol type: hard liquor Patient Tobacco Use Status: Current everyday Tobacco user Tobacco use type: Cigarette Cigarette Packs Per Day: 0.5 Years Smoked: 40 e-Cigarette/Vaping Use: Never Used Second Hand Smoke Exposure: Yes Substance Use Type: Marijuana service: No Current occupational status: unemployed Current occupational exposures/hazards: No Cognitive needs: Yes (walker, wheelchair) Hearing needs: No Vision needs: Yes (glasses) Questionnaire PHQ-9 Over the last 2 weeks, how often have you been bothered by any of the following problems? 1. Little interest or pleasure in doing things: not at all 2. Feeling down, depressed, or hopeless: not at all 3. Trouble falling or staying asleep, or sleeping too much: not at all 4. Feeling tired or having little energy: not at all 5. Poor appetite or overeating: not at all 6. Feeling bad about yourself - or that you are a failure or have let yourself or your family down: not at all 7. Trouble concentrating on things, such as reading the newspaper or watching television: not at all 8. Moving or speaking so slowly that other people could have noticed. Or the opposite - being so fidgety or restless that you have been moving around a lot more than usual: not at all 9. Thoughts that you would be better off or of hurting yourself in some way: not at all Total score: 0 Depression Screening Interpretation: Negative Depression Screening Done: Yes 83858 - PHQ-9 Billing: Yes Source: Developed by Drs. Riley Banuelos, Clementine Leblanc, Jose J Benítez and colleagues, with an educational xiang from Company. Thrive Questionnaire Date Thrive assessed: 10/03/24 I am a: Patient What is your living situation today?: I have a steady place to live Within the past 12 months, did the food you bought not last and you didn't have the money to get more?: Never true Within the past 12 months, did you worry whether your food would run out before you got money to buy more?: Never true Do you have trouble paying for medicines?: No Do you have trouble getting transportation to medical appointments?: No Do you have trouble paying your heating and electricity bill?: No Do you have trouble taking care of your child, family member or friend?: I choose not to answer this question Do you have trouble with day-to-day activities such as bathing, preparing meals, shopping, managing finances, etc.?: Yes Are you currently unemployed and looking for a job?: No Are you interested in more education?: No Please select the resources that you would like help with: None Currently or been in a relationship where the following occur: No concerns reported THRIVE Score: 0 TAWNYA-7 AMB Questionnaire TAWNYA-7 Date TAWNYA - 7 assessed: 10/03/24 Feeling nervous, anxious, or on edge: 0 = Not at all Not being able to stop or control worryin = Not at all Worrying too much about different things: 0 = Not at all Trouble relaxin = Not at all Being so restless that it is hard to sit still: 0 = Not at all Becoming easily annoyed or irritable: 0 = Not at all Feeling afraid as if something awful might happen: 0 = Not at all Total TAWNYA-7 score (0-4 normal; 5-9 mild; 10-14 moderate; 15-21 severe): 0 Source: Developed by Drs. Riley Bnauelos, Clementine Leblanc, Jose J Benítez and colleagues, with an educational xiang from Company. TAWNYA-7 Assessment Billing TAWNYA-7 Assessment Tool: ATWNYA-7 Assessment 54328 Physical exam (Primary Care) Vital Signs: Last Vital Signs Temp 97.6 F 10/03/24 10:36 Pulse 76 10/03/24 10:36 Resp 12 10/03/24 10:36 BP 98/68 10/03/24 10:36 Pulse Ox 96 10/03/24 10:36 Oxygen Delivery Method Room Air 10/03/24 10:36 BMI result Body Mass Index 21.3 Tobacco/Smoking Status: Tobacco use Status Tobacco use date assessed 08/21/24 10/03/24 10:30 Patient Tobacco Use Status Current everyday Tobacco 10/03/24 10:30 Tobacco use type Cigarette 10/03/24 10:30 e-Cigarette/Vaping Use Never Used 10/03/24 10:30 Are you ready to quit: No Tobacco cessation counseling provided: Yes Items discussed: Nicotine replacement, QuitWorks and Other Relapse Prevention: discussed the importance of a supportive environment, discussed extending NRT, discussed negative mood or depression after quitting, weight gain after smoking is common and discussed dietary, exercise and/or lifestyle changes Number of minutes spent counselin CPT code: 36229 - 4-10 Minutes PHQ-9: PHQ-9 Score PHQ-9: Total score 0 10/03/24 13:24 Depression Screening Interpretation: Negative Thrive Assessment: Date of Thrive Assessment Date Thrive assessed 10/03/24 10/03/24 10:30 Currently or been in a relationship where the following occur: No concerns reported Coding Level of Care Code Est Pt Level 5 (65518) Complex EM visit Add On G2211 Diagnoses Alcohol dependence with alcohol-induced anxiety disorder F10.280 Substance use status: alcohol-induced anxiety disorder Chronic hypokalemia E87.6 Electrolyte abnormality E87.8 Hypertension, essential I10 TAWNYA (generalized anxiety disorder) F41.1 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 Peripheral neuropathy type: polyneuropathy, alcohol-induced Tobacco dependence due to cigarettes F17.210 Additional Codes TAWNYA-7 Assessment Billing - TAWNYA-7 Assessment Tool: TAWNYA-7 Assessment 77414 ([id number]) PHQ-9 - 99704 - PHQ-9 Billing: Yes ([id number]) Vital Signs *Quality* - CPT code: 23997 - 4-10 Minutes ([id number]) Assessment & Plan Assessment & Plan (1) Alcohol dependence: Code(s): F10.20 - Alcohol dependence, uncomplicated Category: Medical Qualifiers: Substance use status: alcohol-induced anxiety disorder Qualified Code(s): F10.280 - Alcohol dependence with alcohol-induced anxiety disorder (2) Chronic hypokalemia: Code(s): E87.6 - Hypokalemia Category: Medical (3) Electrolyte abnormality: Code(s): E87.8 - Other disorders of electrolyte and fluid balance, not elsewhere classified Category: Medical (4) Hypertension, essential: Code(s): I10 - Essential (primary) hypertension Category: Medical (5) TAWNYA (generalized anxiety disorder): Code(s): F41.1 - Generalized anxiety disorder Category: Medical (6) Peripheral neuropathy: Code(s): G62.9 - Polyneuropathy, unspecified Category: Medical Qualifiers: Peripheral neuropathy type: polyneuropathy, alcohol-induced Qualified Code(s): G62.1 - Alcoholic polyneuropathy (7) Tobacco dependence due to cigarettes: Code(s): F17.210 - Nicotine dependence, cigarettes, uncomplicated Category: Medical Plan . Orders: Orders Electrolytes 6 Weeks E87.8 - Other disorders of electrolyte and fluid balance, not elsewhere classified Medications: New lamotrigine PO PER PKG DIR 35 ea 0RF Refilled clonidine HCl 0.1 mg PO BEDTIME 90 tabs 1RF Discontinued potassium chloride ER (Klor-Con M) Discontinued Reason: Patient Completed Course 20 mEq PO BID 10 tabs 0RF
[2024-10-03 10:36] VITALS: BP 98/68; PULSE 76; RESP 12; TEMP 36.4; O2SAT 96; BMI 21.3
--- OUTSIDE RECORDS SUMMARY | 2024-10-03 11:20 | XMS_ITS | Patient Health Record ---
Author Organization [facility], [facility] Address [address] [place] [id number] Care Team Providers Care Casting Room Helper Name Role Phone ARA MONK Primary Care Provider [phone] Daja Cutler Unavailable [phone] REASON FOR REFERRAL No Information PLAN OF TREATMENT No Information Insurance Providers Payer Name Payer Address Payer Phone Subscriber Number Group Number Insured Name Patient Relationship to Insured Coverage Start Date Coverage End Date [facility] [address] [place] [address] [id number] LIO CRAMER Self - patient is the insured
--- OUTSIDE RECORDS SUMMARY | 2024-10-03 11:20 | XMS_ITS ---
Author Organization [facility], [facility] Address [address], [place] [phone] Care Team Providers Care Supervisor Shuttle Fitting Name Role Phone ARA MONK Primary Care Provider Daja Cutler [phone] REASON FOR VISIT New Patient Encounters Encounter Location Date Provider Diagnosis [facility], [facility] [address], [place] [phone] 04/04/2023 Daja Cutler PLAN OF TREATMENT No Information Progress Notes * LIANNE CRAMERADOB: 2 (64 yo F)Acc No.[id number]:04/04/2023 Progress Notes Patient:??LIO CRAMER Provider:??Daja Cutler DNP :1960?Age:63 Y?Sex:Fe male Date:04/04/2023 Phone: Address:[address] [place] [address], [place] [address] [place] [address] Pcp:ARA MONK Subjective: * Chief Complaints: * ?1. New Patient. * Medical History:?? Objective: Assessment: Plan: * Treatment: Care Plan: * Problems:?? * Billing Information: * Visit Code:?? * Procedure Codes:?? * Sign off status: Pending * Provider:??Daja Cutler DNP Date:??
== END 2024-10-03 11:08 | disposition home or self-care (01) ==
LOC: HO.HMCFM 10:24
PROVIDERS: PCP Nurse Practitioner Family; Visit Provider Nurse Practitioner Family
DX: F10.280 Alcohol dependence with alcohol-induced anxiety disorder (principal); E87.6 Hypokalemia; E87.8 Other disorders of electrolyte and fluid balance, not elsewhere classified; G62.1 Alcoholic polyneuropathy; I10 Essential (primary) hypertension; F41.1 Generalized anxiety disorder; F17.210 Nicotine dependence, cigarettes, uncomplicated

== ENCOUNTER → 2024-10-03 10:24 | Outpatient (BNVA) | payer OTHER, SELFPAY | PROVIDERS: PCP Nurse Practitioner Family; Visit Provider Nurse Practitioner Family | DX: Z13.89 Encounter for screening for other disorder (principal) ==

== ENCOUNTER 2024-10-03 11:01 | Outpatient (REF) | payer OTHER, SELFPAY ==
[2024-10-03 15:03] LABS: Magnesium 1.8 mg/dL (1.6-2.6); Potassium 5.4 mmol/L (3.3-5.1)
== END 2024-10-03 11:02 | disposition home or self-care (01) ==
LOC: HO.WFDLDS 11:01
PROVIDERS: Visit Provider Nurse Practitioner Family
DX: F10.280 Alcohol dependence with alcohol-induced anxiety disorder (principal); E87.6 Hypokalemia; E87.8 Other disorders of electrolyte and fluid balance, not elsewhere classified; I10 Essential (primary) hypertension; F41.1 Generalized anxiety disorder; G62.1 Alcoholic polyneuropathy; F17.210 Nicotine dependence, cigarettes, uncomplicated; E83.42 Hypomagnesemia
CPT/HCPCS: 36415; 83735; 84132; 96127; 99212